=== PATIENT | female | born 1955 | race Caucasian/White ===

== ENCOUNTER 2018-08-28 00:49 | Outpatient (CLI) | payer BC, SELFPAY ==
--- NOTE | 2018-08-28 13:00 | DI.MAMMO_ITS ---
SYMPTOM/DIAGNOSIS: SCREENING, Z12.31 MAMMOGRAM: 08/28 Mammograms were interpreted according to the usual protocol including computer analysis with CAD system, tomosynthesis and C view imaging. The breasts are heterogeneously dense. No dominant mass or clumped microcalcifications identified in either breast. The current examination is compared with previous examinations including July 2017, and there has been no gross interval change in appearance in comparison with the previous studies. CONCLUSION: No specific evidence of malignancy at this time. Routine screening examinations are suggested at yearly intervals in this age group according to the ACS/ACR guidelines. Category 1, breast density category C. MQSA ASSESSMENT OF FINDINGS: Negative. Category 1. Patient will receive a letter notifying them of these results. Bi-RADS category C. The breasts are heterogeneously dense, which may obscure small masses.
== END 2018-08-28 01:09 ==
PROVIDERS: PCP Internal Medicine; Visit Provider Internal Medicine
DX: Z12.31 Encounter for screening mammogram for malignant neoplasm of breast (principal)
CPT/HCPCS: 77063; 77067

== ENCOUNTER 2019-07-10 18:28 | Outpatient (REF) | payer BC, SELFPAY | END 2019-07-10 18:48 | LOC: LBN 18:28 | PROVIDERS: PCP Internal Medicine; Visit Provider Internal Medicine | DX: R30.0 Dysuria (principal) | CPT/HCPCS: 87077; 87086; 87186 ==

== ENCOUNTER 2019-08-29 00:40 | Outpatient (CLI) | payer BC, SELFPAY ==
--- NOTE | 2019-08-29 11:20 | DI.MAMMO_ITS ---
EXAM: MG MAMMO SCREENING CLINICAL HISTORY: screening, Z12.39 TECHNIQUE: Mammograms were interpreted according to the usual protocol including computer analysis w [employer] CAD system, tomosynthesis and C-view imaging. COMPARISON: [id number] FINDINGS: The breasts are composed of heterogeneously dense tissue, which may obscure small masses, breast dens ity category C. There are no suspicious masses or suspicious microcalcifications. There has been no interval change when compared with the previous examinations. IMPRESSION: Category 1, negative mammogram. Yearly screening mammography is recommended. BI-RADS Cat 1 - Negative Breast Density - Category C - Heterogeneously dense
== END 2019-08-29 01:00 ==
PROVIDERS: PCP Internal Medicine; Visit Provider Internal Medicine
DX: Z12.31 Encounter for screening mammogram for malignant neoplasm of breast (principal)
CPT/HCPCS: 77063; 77067

== ENCOUNTER 2019-09-04 06:54 | Day surgery (SDC) | payer BC, SELFPAY ==
--- NOTE | 2019-09-04 06:30 | W.UPDATEHP ---
Date of service: 09/04/19 Time of Service: 08:35 Updated H&P Refer to Most Recent Clinic Note/H&P Dated: 08/16/19 H&P was reviewed,patient examined No change has occured in patient's condition since last H&P completed
--- NOTE | 2019-09-04 06:30 | W.COLOREPORT ---
Date of service: 09/04/19 Time of Service: 08:41 Colonoscopy Report Date of procedure: 09/04/19 Pre-op diagnosis general: Colon Cancer Screening Post-op diagnosis procedure note: other (Rectal polyp and mild diverticulosis) Procedure: Colonoscopy with polypectomy Surgeon: Carolina Keane Anesthesia proc note operative: other (General/ ASA 1/ Antolin Cota CRNA) Estimated blood loss (mL): 5 Pathology: other (Rectal polyp) Complications: None Disposition: same day Indications: The patient is here for Colonoscopy pre-op. Her last screening was in 2008 and was unremarkable. She has no family history of colon cancer. She has not had any bowel habit changes. -Discussed colonoscopy bowel prep as well as the procedure. Discussed possible complications of the procedure to include bleeding, pain, perforation, missed small lesion/polyp, sore throat, aspiration and adverse reaction to the medications. Questions were answered to patient?s satisfaction. No guarantees were implied or given. Prep: Miralax/Dulcolax Procedure Start Time: : Procedure End Time: 09:10 Retraction Time: 14 minutes Findings: <10 mm pedunculated polyp of rectum Mild sigmoid diverticulosis Procedure Description: After informed consent was obtained the patient was taken to the procedure room and placed in a left decubitous position. Monitors were applied and a time out was done. The patients name, date of , procedure, allergies to medications and metal in their body was reviewed. The patient was then sedated. Once sedated and comfortable a rectal exam was done. External exam was normal. Internal exam revealed a normal sphincter tone and no palpable masses. The scope was then introduced and retro-flexed. No internal hemorrhoids, masses or polyps were identified on retro-flexion. The scope was then advanced to the cecum without difficulty. The TI and appendiceal orifice were identified. The prep was adequate. The scope was then slowly retracted over 14 minutes back into the rectum. Polyps were removed with cold forceps in the rectum. There was mild diverticulosis noted of the sigmoid colon. The scope was removed and the patient was woken up and taken back to Same day surgery in stable condition. The patient tolerated the procedure well and there were no immediate complications. Follow up: The patient should follow up in 3-5 years unless they develop changes in bowel habits or other new gastrointestinal complaints.
--- NOTE | 2019-09-04 06:32 | W.PM.DSUDISC ---
Discharge Plan Disposition Patient Disposition: HOME Condition: Good Discharge Details Reason For Visit: Colon Cancer Screening Attending Provider: Carolina Keane Primary Care Provider: Rena Fisher Home Meds and New Rx's Prescriptions: Continued sertraline 25 mg tablet 12.5 mg PO .qod Qty: 30 RF: 1 ibuprofen 600 MG tablet 600 mg PO QID PRN (Reason: Pain) Qty: 30 RF: 0 sertraline 25 mg tablet 25 mg PO DAILY PRNRF: 0 multivitamin with minerals [Hair,Skin and Nails] Tablet 1 tab PO DAILY RF: 0 Discharge Instructions Instructions: Diverticulosis (DC), Colorectal Polyps (DC) Additional Instructions: Findings: One polyp Mild diverticulosis Follow up: 3-5 years Please call if you develop: fevers >101.5 Nausea or Vomiting Abdominal pain that is not transient DAY SURGERY UNIT POST ENDOSCOPY INSTRUCTIONS 1. Because there will be medication in your system for the next 24 hours, you may feel a little sleepy. Your coordination will be affected. Therefore: a. Do not drive or operate dangerous equipment for 24 hours. b. Do not drink alcohol beverages for 24 hours (not even beer). c. Plan to go home and rest for the day. 2. Generally there are no restrictions on your activity after a day or so has gone by, but you may feel a bit fatigued for a few days. 3 After you arrive home you may have a light meal and return to a normal diet as you can tolerate it without feeling sick to your stomach. 4. After surgery, you may feel pain or discomfort. This should be only transient, but if it persists please contact your doctor. 5. If there are any questions regarding the findings of your procedure, please feel free to contact your doctor. 6. If you are unable to contact your doctor with a problem, contact the hospital at [phone]. 7. Continue all your regular medications unless directed otherwise. I understand the above instructions and have no questions. Signature of Patient or Responsible Adult Escort Date/Time Name of Responsible Adult Escort Signature of Nurse Date/Time Activity:: Activity as Tolerated Diet:: High Fiber diet Discharge Orders Discharge Orders: Discharge Order (Routine); Ordered 09/04/19 Ordered By: Carolina Keane DS: Diagnosis Discharge Diagnosis (1) History of colonoscopy: Status: Chronic (2) Colorectal polyp detected on colonoscopy: Status: Acute (3) Diverticulosis: Status: Acute
[2019-09-04 07:11] VITALS: BP 115/77; PULSE 79; RESP 16; TEMP 36.4; O2SAT 98
[2019-09-04] MEDS: Lactated Ringers 1,000 ML 80 ML IV (07:45)
--- NOTE | 2019-09-04 08:35 | HPE_ITS ---
Date of service: 09/04/19 Time of Service: 08:35 Updated H&P Refer to Most Recent Clinic Note/H&P Dated: 08/16/19 H&P was reviewed,patient examined No change has occured in patient's condition since last H&P completed cc: Dictated by: SADAF LOYA MD Dictated: 09/04/19Time: 629 <Electronically signed by Carolina Loya M.D.> Date: 11/04/18913 Date: Date: Transcribed Date: 09/04/19 Transcribed Time: 629By: NATHAN
--- NOTE | 2019-09-04 08:45 | BOWEL_PTH ---
PATIENT: Jewels Jimenez LOC: [facility] U#:[id number] AGE/SX: 63/F ROOM: RE09/04/[address]: Carolina Keane MD : [id number] BED: DIS: 09/04/2019 SPEC #: [id number] RECD: 09/04/19 12:37 STATUS: LEODAN REQ #: [id number] MICKEY: 09/04/19 08:[address]: Carolina Keane DEPT: Surgical Specimen RECD BY: Rosalia Delacruz ENTERED: 09/04/19 12:38 SP TYPE: Bowel OTHR DR: Rena Fisher MD Tissues: 1 - BIOPSY BOWEL Procedures: GROSS AND MICRO LEVEL 4 Comments: [id number]
[2019-09-04 09:19] VITALS: BP 124/82; PULSE 66; RESP 16; TEMP 36.2; O2SAT 98
== END 2019-09-04 10:09 | disposition home or self-care (01) ==
LOC: SUR 06:56
PROVIDERS: PCP Internal Medicine; Visit Provider Surgery
PROC: 0DJD8ZZ Inspection of Lower Intestinal Tract, Via Natural or Artificial Opening Endoscopic (ICD-10-PCS; CPT 45378; principal; 2019-09-04 08:30)
DX: Z12.11 Encounter for screening for malignant neoplasm of colon (principal); K57.30 Diverticulosis of large intestine without perforation or abscess without bleeding; D12.8 Benign neoplasm of rectum
CPT/HCPCS: 45380; 88305; J2250; J3010

== ENCOUNTER 2019-12-21 11:09 | Emergency (ER) | payer BC, SELFPAY ==
[2019-12-21 11:20] VITALS: BP 134/88; PULSE 68; RESP 16; TEMP 36.8; O2SAT 97
[2019-12-21 11:26] VITALS: RESP 15
--- NOTE | 2019-12-21 11:30 | DI.RAD_ITS ---
EXAM: XR WRIST RT COMPLETE CLINICAL HISTORY: Swelling, pain. TECHNIQUE: 2D digital imaging was performed. COMPARISON: No exams were available for comparison FINDINGS: BONES: No acute fracture is present. No bony destructive lesion is seen. JOINTS: The carpal bones are normally aligned. SOFT TISSUE: Normal. IMPRESSION: No acute abnormality of the right wrist. DATA REPOSITORY: RADIATION DOSE DELIVERED:
--- NOTE | 2019-12-21 11:45 | ED.GENADUL_ITS ---
Discharge Plan Disposition Patient Disposition: HOME Condition: Stable Discharge Details Chief Complaint: GenMedical Clinical Impression: Right wrist pain, Cellulitis of right wrist Primary Care Provider: Rena Fisher ED Provider: Asha Ellis Home Meds and New Rx's Prescriptions: New clindamycin HCl 300 mg capsule 300 mg PO BID 7 Days Qty: 14 RF: 0 No Action ibuprofen 600 MG tablet 600 mg PO QID PRN (Reason: Pain) Qty: 30 RF: 0 multivitamin with minerals [Hair,Skin and Nails] Tablet 1 tab PO DAILY RF: 0 Discharge Instructions Instructions: Cellulitis (ED) Additional Instructions: Follow up with primary care provider in 3-5 days. Return to ED sooner if any worsening or concerns. Increase oral fluids. Please take Tylenol or Ibuprofen with food every 4-6 hours as needed for pain and swelling. Wear splint for comfort. Take medications as directed. Please return for any worsening swelling, redness or red streaks. At this time we are unable to fully rule out septic joint as discussed. Referrals: Rena Fisher MD [Primary Care Provider] - Medical Decision Making Initial work-up includes x-ray, CBC, CMP and a uric acid to rule out gout versus cellulitis versus bony abnormality. Other considerations are septic joint. EXAM: XR WRIST RT COMPLETE CLINICAL HISTORY: Swelling, pain. TECHNIQUE: 2D digital imaging was performed. COMPARISON: No exams were available for comparison FINDINGS: BONES: No acute fracture is present. No bony destructive lesion is seen. JOINTS: The carpal bones are normally aligned. SOFT TISSUE: Normal. IMPRESSION: No acute abnormality of the right wrist. Discussed the only way to rule out septic joint is to do a joint aspiration patient declines at this time. Strict return instructions given, instructed to return for any increased swelling and redness or worsening. Verbalized understanding. I will cover for possible cellulitis at this time given clindamycin 300 mg twice a day x7 days. [facility] wrist splint given to patient and instructed on use. HPI General Mode of arrival: ambulatory . Date/Time Provider Initiated Documentation: 12/21/19 11:12 . Limitations to Documentation: no limitations . Information obtained by: patient . HPI Narrative: 64-year-old female presents with right wrist erythema and swelling which began 2 to 3 days ago. She denies any known injury. She does have decreased risk of flexion without tenderness. Radial pulses intact. Cap refill less than 3 seconds. Denies any fever or chills. Related Data Home Medications Medication Instructions Recorded Confirmed ibuprofen 600 mg PO QID PRN #30 tab 02/09/15 12/21/19 multivitamin with minerals 1 tab PO DAILY 08/30/19 12/21/19 [Hair,Skin and Nails] clindamycin HCl 300 mg PO BID 7 Days #14 cap 12/21/19 Previous Rx's Medication Instructions Recorded ibuprofen 600 mg PO QID PRN #30 tab 02/09/15 clindamycin HCl 300 mg PO BID 7 Days #14 cap 12/21/19 Allergies Allergy/AdvReac Type Severity Reaction Status Date / Time cefdinir Allergy Severe swelling Verified 12/21/19 11:25 cephalexin Allergy Severe facial Verified 12/21/19 11:25 swelling codeine Allergy Severe body and Verified 12/21/19 10:09 throat swells Penicillins Allergy Severe throat Verified 12/21/19 11:25 closes up strawberry Allergy Severe Swelling/Ed Verified 12/21/19 11:25 aiyana Sulfa (Sulfonamide Allergy Severe body swells Verified 12/21/19 11:25 Antibiotics) General Stated Complaint: GenMedical JOSAFAT: 3 Review of Systems Narrative: Constitutional: Negative for weight loss, alert and oriented, well groomed, normal body habitus, appears comfortable. HEENT: Denies trauma, headaches, blurry vision, nasal discharge, sore throat, trouble swallowing. Chest: Denies chest pain, palpitations, irregular rhythm, hypertension. Respiratory: Denies Shortness of breath, cough, hemoptysis. Extremities: Right wrist pain and redness GI: Denies abdominal pain, nausea, vomiting, diarrhea, constipation. : Denies dysuria, hematuria, flank pain, rectal bleeding. Neuro: Denies dizziness, blurry vision, weakness, syncope, headache or facial numbness. Hematologic: Denies easy bruising, intolerance to heat or cold, hair loss. [facility] Medical History Arthralgia of pelvic region and thigh (Inactive 10/26/13) prob contusion Biliary dyskinesia KINA II (cervical intraepithelial neoplasia II) Diverticulosis (Acute) Generalized anxiety disorder (Inactive 03/10/16) Migraine Surgical History History of colonoscopy (Chronic ~09/04/19) 08/28 - Tubular adenoma. 2008- normal Hx of tubal ligation (Chronic) S/P laparoscopic cholecystectomy (Acute) S/P LEEP (Acute) Family History Father Heart disease Brother Heart disease Social History Smoking/Tobacco Use Status: Never Alcohol Intake: never Drug use: Never Substance use type: does not use Household members: spouse Housing: house Number of Children: 2 number of grandchildren: 4 current occupation: [employer] at [email or web address] What is your relationship status?: Panel score (0-1 are the most socially isolated patients): 1 What type of physical activity do you participate in: regular exercise Seatbelt use: always Drive intox or ride w/intox horse and wagon driver: No Working smoke detector in home: Yes Fire extinguisher in home: Yes Carbon monox detector in home: Yes Do you feel safe at home: Yes Do you feel safe in your relationship?: Yes Exam Narrative Exam Narrative: Constitutional: Allert and oriented x3. Appears stated age. Normal body habitus. Head: Normocephalic, no trauma. Eyes: Pupils PERRLA, Red reflex noted, EOM's intact. Eyelids symmetrical withour lesions, discharge, or swelling. ENT: Bilateral TM's WNL, External ear normal to inspection, no mastoid TTP, swelling, or erythema, Nasal turbinates WNL, no nasal discharge. Normal dentition, Posterior pharynx WNL, no exudate. Chest: RRR, Normal S1, S2, distal pulses intact. Resp: Lungs clear to auscultation bilaterally, no wheezes, rales, or rhonchi. Musculoskeletal: Normal gait, 5/5 strength to all four extremities. Right wrist erythema noted to the dorsal aspect with swelling. Decreased range of motion with flexion. No obvious deformity. Skin: No suspicious rashes or lesions. Capillary refill ?2 sec. Neurologic: Cranial nerves II-XII intact. Alert and oriented x 3. DTR's intact. Hematologic/Lymphatic: No ecchymosis, no lymphadenopathy. Course Vital Signs Vital signs: Vital Signs Temperature 36.8 C 12/21/19 11:20 Pulse 68 03/13/20 11:20 Respiratory Rate 16 12/21/19 11:20 Blood Pressure 134/88 12/21/19 11:20 Pulse Oximetry 97 12/21/19 11:20 Temperature 36.8 C 12/21/19 11:20 Temperature Source Tympanic 12/21/19 11:20 Pulse 68 12/21/19 11:20 Respiratory Rate 15 12/21/19 11:26 Respiratory Effort Non-Labored 12/21/19 11:26 Respiratory Depth Normal 12/21/19 11:26 Blood Pressure 134/88 12/21/19 11:20 Blood Pressure Position Sitting 12/21/19 11:20 Pulse Oximetry 97 12/21/19 11:20 Oxygen Delivery Method Room Air 12/21/19 11:20 Oxygen Flow Rate 0 12/21/19 11:20 Pain Level 10 12/21/19 11:20 Comment 12/21/19 11:20
[2019-12-21 12:05] LABS: Abs Immature Grans 0.01 k/cumm (0.0-0.09); Absolute Basophil Count 0.03 k/cumm (0.0-0.2); Absolute Eosinophil Count 0.14 k/cumm (0.0-0.7); Absolute Lymphocyte Count 1.35 k/cumm (1.2-3.4); Absolute Neutrophil Count 3.61 k/cumm (1.2-6.7); Basophils % 0.5; Eosinophils % 2.4; HCT 38.6 % (36.0-46.0); HGB 13.1 g/dL (12.0-15.5); Immature Grans % 0.2 %; Lymphocytes % 23.5; Mean Corp. HGB Concentration 33.9 g/dL (32.0-36.0); Mean Corpuscular Hemoglobin 30.7 pg (27.0-33.0); Mean Corpuscular Volume 90.4 fL (80-95); Mean Platelet Volume 11.3 fL (8.0-11.0); Monocytes % 10.5; Neutrophils % 62.9; Platelet Count 200 x1000/uL (130-400); RBC 4.27 m/cumm (4.00-5.20); RBC Distribution Width 12.4 % (11.7-14.6); White Blood Cell Count 5.74 k/cumm (4.4-10.8)
[2019-12-21 12:17] VITALS: BP 130/58; PULSE 59; RESP 18; TEMP 36.6; O2SAT 98
[2019-12-21 12:18] LABS: ALT 77 U/L (14-59); AST 55 U/L (15-37); Alkaline Phosphatase 110 U/L (46-116); Anion Gap 7.4 mmol/L (3-11); BUN 13 mg/dL (7-18); Bilirubin, Total 0.5 mg/dL (0.2-1.0); CO2 28.6 mmol/L (21.0-32.0); CREATININE 0.67 mg/dL (0.55-1.02); Chloride 105 mmol/L (98-107); Glucose 88 mg/dL (74-106); Potassium 3.5 mmol/L (3.5-5.1); Sodium 141 mmol/L (136-145); Total Protein 7.4 g/dL (6.4-8.2); Uric Acid 1.8 mg/dL (2.6-6.0)
[2019-12-21 13:07] VITALS: BP 124/74; PULSE 63; RESP 14; TEMP 36.6; O2SAT 98
== END 2019-12-21 13:07 | disposition home or self-care (01) ==
PROVIDERS: Emergency Provider Registered Nurse Emergency; PCP Internal Medicine
DX: L03.113 Cellulitis of right upper limb (principal)
CPT/HCPCS: 29125; 36415; 80053; 99284; 73110; 84550; 85025; L3807

== ENCOUNTER → 2020-07-22 00:04 | Outpatient (CLI) | payer BC, SELFPAY ==
--- NOTE | 2020-07-22 09:00 | ETT_ITS ---
APPROVED REPORT Exam: Exercise Treadmill Patient Location: Out-Patient Room/Bed: Stress Nurse: Avis Prince RN BMI: 24.02 Baseline Rhythm: Sinus Rhythm, inverted T waves in leads aVL, V1, V2 Indications: Atypical chest pain. 1 episode of 4/10 chest pressure/heaviness radiating to left neck a nd lasting about 2 hours. Medical History Cardiac Medications: No medications. Allergies: Penicillins, sulfa medications. Cardiac Risk Factors: FHX of CAD Pretest Chest Pain Characteristics: No chest pain Exercise History: Physically active Lung Sounds: Clear to auscultation Heart Sounds: Regular Stress Test Details Test: Exercise stress testing was performed using a Soto protocol. Rest Stress HR Resting HR Supine: 63 bpm Max Heart Rate (APMHR): 157 bpm Resting HR Standin bpm Target HR (85% APMHR): 133 bpm Max HR Achieved: 179 bpm % of APMHR: 114 Recovery HR: 93 bpm HR response to stress: Normal HR response to stress BP Resting BP Supine: 118/72 mmHg Resting BP Standin/70 mmHg Max BP: 162/60 mmHg Recovery BP: 130/68 mmHg BP response to stress: Normal blood pressure response to stress. ECG Resting ECG: Sinus Rhythm, inverted T waves in leads aVL, V1, V2 Stress ECG: Sinus Tachycardia ST Change: Normal Arrhythmia: rare PVC Recovery ECG: Sinus Rhythm, inverted T waves in leads aVL, V1, V2 Recovery ST Change: Normal Recovery Arrhythmia: None Clinical Reason for Termination: Fatigue Stress Symptoms: None Exercise duration: 12 min07 sec Highest Stage Reached: Stage 5: 5.0 mph at 18% grade. Exercise capacity: 13.55 METs Stress ECG Conclusion 1. The patient exercised for 12 minutes (14 METS). Exercise was terminated due to fatigue. 2. The patient no symptoms suggestive of ischemia. 3. There was no evidence of ischemia on the EKG portion of the exam. 4. The Morales Score ( 12) estimates an annual cardiovascular mortality of 0% and a five year survival o f 96%. Using the Morales Score there is a low probability of any angiographic coronary disease. Stress Test Summary STAGE Time (mins) Speed (mph) Grade (%) HR BP SYMPTOMS METS Supine 63 118/72 Standing 88 114/70 1 3 1.7 10 121 124/68 4.6 2 6 2.5 12 136 128/66 7 3 9 3.4 14 160 140/62 10.2 4 12 4.2 16 176 12.9 1 min recovery 154 162/60 3 min recovery 110 152/64 6 min recovery 97 130/68
== END ==
PROVIDERS: PCP Internal Medicine; Visit Provider Internal Medicine
DX: R07.89 Other chest pain (principal); Z82.49 Family history of ischemic heart disease and other diseases of the circulatory system
CPT/HCPCS: 93017

== ENCOUNTER → 2020-07-29 01:28 | Outpatient (CLI) | payer BC, SELFPAY ==
[2020-07-29 15:53] LABS: ALT 64 U/L (14-59); AST 29 U/L (15-37); Albumin 4.1 g/dL (3.4-5.0); Alkaline Phosphatase 101 U/L (46-116); Anion Gap 8.1 mmol/L (3-11); BUN 19 mg/dL (7-18); Bilirubin, Total 0.6 mg/dL (0.2-1.0); CO2 29.9 mmol/L (21.0-32.0); CREATININE 0.69 mg/dL (0.55-1.02); Calcium 9.3 mg/dL (8.5-10.1); Calculated LDL 106 mg/dL (<100); Chloride 105 mmol/L (98-107); Cholesterol 211 mg/dL (<200); Glucose 82 mg/dL (74-106); HDL Cholesterol 94 mg/dL (40-60); Potassium 3.9 mmol/L (3.5-5.1); Sodium 143 mmol/L (136-145); Total Protein 7.2 g/dL (6.4-8.2); Triglyceride 55 mg/dL (<150)
== END ==
PROVIDERS: PCP Internal Medicine; Visit Provider Internal Medicine
DX: E78.00 Pure hypercholesterolemia, unspecified (principal); R07.89 Other chest pain
CPT/HCPCS: 36415; 80053; 80061

== ENCOUNTER 2021-04-03 11:01 | Outpatient (REF) | payer BC, SELFPAY | END 2021-04-03 11:02 | disposition home or self-care (01) | LOC: LBN 11:01 | PROVIDERS: PCP Internal Medicine; Referring Provider Student in an Organized Health Care Education/Training Program; Visit Provider Student in an Organized Health Care Education/Training Program | DX: R10.9 Unspecified abdominal pain (principal); N39.0 Urinary tract infection, site not specified | CPT/HCPCS: 87086 ==

== ENCOUNTER 2021-04-03 11:07 | Emergency (ER) | payer BC, SELFPAY ==
[2021-04-03] VITALS (9 sets, daily range): BP systolic 111–123; BP diastolic 62–82; PULSE 55–85; RESP 20; TEMP 36.8; O2SAT 96–99
--- NOTE | 2021-04-03 11:11 | W.ED.GENAD ---
Discharge Plan Disposition Patient Disposition: HOME Condition: Stable Discharge Details Clinical Impression: Diverticulitis Primary Care Provider: Rena Fisher ED Provider: Victorino Lala Home Meds and New Rx's Prescriptions: New ondansetron HCl [Zofran] 4 mg tablet 4 mg PO Q8H PRNQty: 10 RF: 0 ciprofloxacin HCl [Cipro] 500 mg tablet 500 mg PO Q12H Qty: 20 RF: 0 metronidazole [Flagyl] 500 mg tablet 500 mg PO QID 10 Days Qty: 40 RF: 0 Continued ibuprofen 600 MG tablet 600 mg PO QID PRN (Reason: Pain) Qty: 30 RF: 0 Discharge Instructions Instructions: Diverticulitis (ED) Additional Instructions: CT imaging reveals that you have diverticulitis. Take Cipro, Flagyl, Zofran as directed. Clear liquid diet, advance as tolerated. Please watch for new or worsening symptoms and return to the ER for any concerns. I would like you to contact your primary care provider on Tuesday to discuss your ER visit and need for reevaluation as an outpatient. Discharge Data Discharge Date/Time-TO BE ENTERED AT DEPARTURE: 04/03/21 14:42 Medical Decision Making This is a 65-year-old female, past medical history of diverticulosis, anxiety, migraines, cholecystectomy, presenting for evaluation of crampy abdominal pain and urinary frequency. Patient had a negative urine at her primary care office, sent to the ER for further evaluation. Clinically she appears well, nontoxic, abdomen is soft, tender without guarding rebound or rigidity. Differential includes but not excluded to appendicitis, pyelonephritis, UTI, renal stone, diverticulitis, bowel obstruction, mesenteric adenitis, etc. Will obtain IV access, laboratory values, urinalysis, give IV fluids and antiemetic, patient declines any medication for her discomfort. She reports her pain is currently 8 out of 10 but tolerable. Laboratory values reveal a white blood cell count of 16.29, sodium 139 potassium 3.4 anion gap 14 creatinine 0.8 with a GFR of greater than 60. Total bili 1.7 AST 73 ALT 113 alk phosphatase 222 lipase 44, urinalysis greater than 160 ketones, small bilirubin, trace leukoesterase, 3-5 red cells, 5-10 white cells with few epithelial cells. Negative for bacteria, culture indicated. Urinalysis does have contamination but certainly could be a very early urinary tract infection. Given her discomfort and leukocytosis, will obtain CT imaging. CT imaging revealed uncomplicated sigmoid diverticulitis. Discussed findings and disposition with patient. Patient is afebrile, no vomiting, reports nausea is improved with Zofran. She appears well, nontoxic. Patient was like to trial outpatient therapy, given her clinical presentation I believe this to be perfectly reasonable. Patient will be given oral hydration here in the ER as well as her first dose of Cipro and Flagyl, I will provide a prescription for the next 10 days as well. Cipro should also cover for potential early UTI, again culture is pending. She was encouraged to return to the ER for new or worsening symptoms, otherwise contact her primary care provider on Tuesday. Patient agreeable to this plan and has no additional questions or concerns. Medical Records Medical records reviewed: Yes I reviewed the patient's medical records. Imaging Data Radiologic Study: Attestation: I personally reviewed and interpreted this imaging study as follows: Imaging: CT Scan Radiologist's impression: Exam(s) CT ABDOMEN PELVIS W EXAM: CT ABDOMEN PELVIS W CLINICAL HISTORY: [id number], lower abd pain. TECHNIQUE: Imaging Protocol: Axial computed tomography images with coronal and sagittal reformatted images were created and reviewed CONTRAST MATERIAL: Intravenous: Omnipaque 350 Contrast volume:100 cc Oral: no COMPARISON: No exams were available for comparison FINDINGS: ABDOMEN: Lung Bases: Normal where visualized. Liver: Normal density. No measurable mass. Gallbladder and biliary tract: Cholecystectomy Pancreas: Normal density, no abnormal calcifications or inflammatory process. Spleen: Normal. Kidneys: Normal size, contour and axis. No radiodense stones or obstructive uropathy. No masses seen. Adrenal glands: No masses seen. Abdominal Aorta: Abdominal portion non-dilated. Minimal atherosclerotic changes. PELVIS: Bladder: Symmetric distention, no gross wall thickening. Bowel: Normal appendix. Numerous diverticula are seen in the sigmoid region. Wall thickening and surrounding stranding, consistent with diverticulitis. No abscess or perforation is seen. No obstruction. Peritoneal cavity: No ascites, collection. Bones: Mild degenerative changes. Reproductive organs: Within normal limits. Lymph nodes: Unremarkable. Impression: Sigmoid diverticulitis. Lab Data Lab results reviewed: Yes I reviewed the patient's lab results. Labs: 04/03/21 11:20 Urine - Reflex from Ua Urine Culture - Pending Laboratory Tests Range/Units 04/03/21 04/03/21 04/03/21 11:20 11:30 11:30 WBC (4.4-10.8) 10^3/uL 16.29 H RBC (3.93-5.22) 10^6/uL 4.65 Hgb (11.2-15.7) g/dL 14.0 Hct (36.0-46.0) % 41.5 MCV (80-95) fL 89.2 MCH (27.0-33.0) pg 30.1 MCHC (32.0-36.0) % 33.7 RDW (11.7-14.6) % 12.0 Plt Count (130-400) 10^3/uL 206 MPV (8.0-11.0) fL 11.4 H Immature Gran % 0.4 Neutrophils % 85.0 Lymphocytes % 6.3 Monocytes % 8.0 Eosinophils % 0.0 Basophils % 0.3 Nucleated RBC % % 0 Absolute Neutrophils (1.2-6.7) 10^3/uL 13.85 H Absolute Lymphocytes (1.2-3.4) 10^3/uL 1.03 L Absolute Monocytes (0.1-0.8) 10^3/uL 1.30 H Absolute Eosinophils (0.0-0.7) 10^3/uL 0.00 Absolute Basophils (0.0-0.2) 10^3/uL 0.05 Sodium (136-145) mmol/L 139 Potassium (3.5-5.1) mmol/L 3.4 L Chloride (98-107) mmol/L 100 Carbon Dioxide (21.0-32.0) mmol/L 25.0 Anion Gap (3-11) mmol/L 14.0 H BUN (7-18) mg/dL 13 Creatinine (0.55-1.02) mg/dL 0.8 Estimated GFR/1.73 m2 (mL/min/1.73m2) >= 60.00 Glucose (74-106) mg/dL 104 Calcium (8.5-10.1) mg/dL 9.5 Total Bilirubin (0.2-1.0) mg/dL 1.7 H AST (15-37) U/L 73 H ALT (14-59) U/L 113 H Alkaline Phosphatase (46-116) U/L 222 H Total Protein (6.4-8.2) g/dL 8.4 H Albumin (3.4-5.0) g/dL 3.9 Lipase (73-393) U/L 44 Urine Color (Yellow) Yellow Urine Clarity (Clear) Clear Urine pH (5-8) 6.0 Ur Specific [place] (1.005-1.025) 1.025 Urine Protein (Negative) mg/dL Negative Urine Ketones (Negative) mg/dL >=160 H Urine Blood (Negative) Negative Urine Nitrite (Negative) Negative Urine Bilirubin (Negative) Small H Urine Urobilinogen (Up TO 0.2) EU/dL 1.0 H Ur Leukocyte Esterase (Negative) Trace H Urine RBC (0-2) HPF 3-5 H Urine WBC (0-5) HPF 5-10 Ur Epithelial Cells (Negative) HPF Few Urine Crystals (Negative) HPF Negative Urine Bacteria (Negative) HPF Negative Urine Casts (Negative) LPF Negative Urine Mucus (Negative) Negative Ur Culture Indicated? Yes Urine Glucose (Negative) mg/dL Negative HPI General Mode of arrival: ambulatory. Date/Time Provider Initiated Documentation: 04/03/21 11:07. Limitations to Documentation: no limitations. Information obtained by: patient. HPI Narrative: This is a 65-year-old female, past medical history of diverticulosis, anxiety, migraines, presenting to the ER reporting 5-day history of diffuse lower abdominal pain. She reports urinary frequency, nausea, thought she may have a UTI, seen at her primary care office today, urine negative, sent to the ER for further evaluation. She denies fever, chest pain, shortness of breath, back pain, dysuria, hematuria, diarrhea or constipation. Reports the pain is progressively worsening, now 8 out of 10, crampy. Reports normal bowel movement over the past 24 hours. States that she has a history of diverticulosis by colonoscopy but never diagnosed with diverticulitis. Related Data Home Medications Medication Instructions Recorded Confirmed ibuprofen 600 mg PO QID PRN #30 tab 02/09/15 04/03/21 ciprofloxacin HCl [Cipro] 500 mg PO Q12H #20 tab 04/03/21 metronidazole [Flagyl] 500 mg PO QID 10 Days #40 tab 04/03/21 ondansetron HCl [Zofran] 4 mg PO Q8H PRN #10 tab 04/03/21 Previous Rx's Medication Instructions Recorded ibuprofen 600 mg PO QID PRN #30 tab 02/09/15 ciprofloxacin HCl [Cipro] 500 mg PO Q12H #20 tab 04/03/21 metronidazole [Flagyl] 500 mg PO QID 10 Days #40 tab 04/03/21 ondansetron HCl [Zofran] 4 mg PO Q8H PRN #10 tab 04/03/21 Allergies Allergy/AdvReac Type Severity Reaction Status Date / Time cefdinir Allergy Severe swelling Verified 04/03/21 10:24 cephalexin Allergy Severe facial Verified 04/03/21 10:24 swelling codeine Allergy Severe body and Verified 04/03/21 10:24 throat swells Penicillins Allergy Severe throat Verified 04/03/21 10:24 closes up strawberry Allergy Severe Swelling/Ed Verified 04/03/21 10:24 aiyana Sulfa (Sulfonamide Allergy Severe body swells Verified 04/03/21 10:24 Antibiotics) General JOSAFAT: 3 Review of Systems Constitutional Constitutional: Denies fatigue, Denies fever(s) and Denies headache(s) ENT Ears, Nose, Mouth, and Throat: Denies headache(s) and Denies neck pain Cardiovascular Cardiovascular: Denies chest pain and Denies dyspnea Respiratory Respiratory: Denies dyspnea Gastrointestinal Gastrointestinal: Reports abdominal pain, Denies constipation, Denies diarrhea, Reports nausea and Denies vomiting Genitourinary Genitourinary: Denies dysuria and Reports urinary urgency Musculoskeletal Musculoskeletal: Denies back pain and Denies neck pain Integumentary/Breasts Skin/Breast: Denies rash Neurologic Neurologic: Denies headache(s) Endocrine Endocrine: Denies fatigue Hematologic/Lymphatic Hematologic/Lymphatic: Denies easy bleeding and Denies easy bruising [facility] Medical History Abdominal pain Mod-Severe .. x3 days, LLQ -->RLQ w/ suprapubic tenderness. Diverticulits? Colitis? Arthralgia of pelvic region and thigh (10/26/13) prob contusion Biliary dyskinesia KINA II (cervical intraepithelial neoplasia II) Diverticulosis Generalized anxiety disorder (03/10/16) Migraine Surgical History History of colonoscopy (~09/04/19) 08/28 - Tubular adenoma. 2008- normal Hx of tubal ligation S/P laparoscopic cholecystectomy S/P LEEP Family History Father Heart disease Brother Heart disease Social History Smoking/Tobacco Use Status: Never Smoking risk assessment performed?: Yes Alcohol Intake: never Drug use: Never Substance use type: does not use Household members: spouse Housing: house Number of Children: 2 number of grandchildren: 4 current occupation: [employer] at [employer] What is your relationship status?: Panel score (0-1 are the most socially isolated patients): 1 What type of physical activity do you participate in: regular exercise Seatbelt use: always Drive intox or ride w/intox 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: No Working smoke detector in home: Yes Fire extinguisher in home: Yes Carbon monox detector in home: Yes Do you feel safe at home: Yes Do you feel safe in your relationship?: Yes Exam Const General: cooperative, healthy appearing, comfortable and no acute distress Orientation: alert and awake HENNY Head: normal to inspection, normocephalic and atraumatic Mouth: moist mucous membranes Eyes General: appearance normal, both eyes and all related structures Conjunctivae: conjunctivae normal Neck Neck: normal visual inspection, trachea midline and supple Resp Effort & Inspection: normal respiratory effort and able to speak in complete sentences Auscultation: clear to auscultation bilaterally Cardio Rate: regular rate Rhythm: regular rhythm GI Inspection: normal to inspection Palpation: soft, not firm, no guarding, no pulsatile masses and tender (Diffuse, worse in the lower quadrants) not at McBurney's point and with no rebound tenderness Auscultation: normal bowel sounds Back/Spine/Pelvis Back: No back tenderness Skin General skin exam: no rashes or lesions noted Neuro General: patient alert, patient awake, moves all extremities and no focal motor deficits Cognition: normal cognition Speech: speech normal Gait: normal gait Sensory Exam: no sensory deficits noted Extrem General: normal to inspection, full ROM and capillary refill normal Psych Appearance: grossly normal Mental Status: mental status grossly normal
[2021-04-03 11:32] LABS: Bilirubin Small (Negative); Blood Negative (Negative); Clarity Clear (Clear); Glucose Negative (Negative); Ketones >=160 mg/dL (Negative); Leukocyte Esterase Trace (Negative); Nitrite Negative (Negative); Specific Gravity 1.025 (1.005-1.025)
[2021-04-03 11:38] LABS: Bacteria Negative HPF (Negative); C & S Indicated? Yes; Casts Negative LPF (Negative); Crystals Negative HPF (Negative); Epithelial Cells Few HPF (Negative); Mucus Negative (Negative)
[2021-04-03 11:49] LABS: Abs Immature Grans 0.06 10^3/uL (0.0-0.06); Absolute Basophil Count 0.05 10^3/uL (0.0-0.2); Absolute Neutrophil Count 13.85 10^3/uL (1.2-6.7); Basophils % 0.3; HCT 41.5 % (36.0-46.0); Immature Grans % 0.4; Lymphocytes % 6.3; MCH 30.1 pg (27.0-33.0); MCHC 33.7 % (32.0-36.0); MCV 89.2 fL (80-95); MPV 11.4 fL (8.0-11.0); Nucleated RBC 0 %; Platelet Count 206 10^3/uL (130-400); RBC 4.65 10^6/uL (3.93-5.22); RDW-SD 39.5 fL; WBC 16.29 10^3/uL (4.4-10.8)
[2021-04-03 11:50] LABS: ALT 113 U/L (14-59); AST 73 U/L (15-37); Absolute Lymphocyte Count 1.03 10^3/uL (1.2-3.4); Albumin 3.9 g/dL (3.4-5.0); Alkaline Phosphatase 222 U/L (46-116); BUN 13 mg/dL (7-18); Bilirubin, Total 1.7 mg/dL (0.2-1.0); CREATININE 0.8 mg/dL (0.55-1.02); Calcium 9.5 mg/dL (8.5-10.1); Chloride 100 mmol/L (98-107); Glucose 104 mg/dL (74-106); Lipase 44 U/L (73-393); Potassium 3.4 mmol/L (3.5-5.1); Sodium 139 mmol/L (136-145); Total Protein 8.4 g/dL (6.4-8.2)
[2021-04-03] MEDS: Normal Saline 1,000 ML 1000 ML IV (12:00)
--- NOTE | 2021-04-03 12:00 | DI.CT_ITS ---
Exam(s) CT ABDOMEN PELVIS W EXAM: CT ABDOMEN PELVIS W CLINICAL HISTORY: [id number], lower abd pain. TECHNIQUE: Imaging Protocol: Axial computed tomography images with coronal and sagittal reformatted images were created and reviewed CONTRAST MATERIAL: Intravenous: Omnipaque 350 Contrast volume:100 cc Oral: no COMPARISON: No exams were available for comparison FINDINGS: ABDOMEN: Lung Bases: Normal where visualized. Liver: Normal density. No measurable mass. Gallbladder and biliary tract: Cholecystectomy Pancreas: Normal density, no abnormal calcifications or inflammatory process. Spleen: Normal. Kidneys: Normal size, contour and axis. No radiodense stones or obstructive uropathy. No masses seen. Adrenal glands: No masses seen. Abdominal Aorta: Abdominal portion non-dilated. Minimal atherosclerotic changes. PELVIS: Bladder: Symmetric distention, no gross wall thickening. Bowel: Normal appendix. Numerous diverticula are seen in the sigmoid region. Wall thickening and leigh rrounding stranding, consistent with diverticulitis. No abscess or perforation is seen. No obstruct ion. Peritoneal cavity: No ascites, collection. Bones: Mild degenerative changes. Reproductive organs: Within normal limits. Lymph nodes: Unremarkable. Impression: Sigmoid diverticulitis. RADIATION DOSE DELIVERED: 935.56mGy.cm Total DLP DATA REPOSITORY: All CT scans at this facility are submitted to the National Radiology Data Registry (NRDR) Dose Index Registry (DIR) with the [employer] (ACR). RADIATION OPTIMIZATION: All CT scans at this facility use at least one of these dose optimization te chniques: automated exposure control; mA and/or kV adjustment per patient size (includes targeted exa ms where dose is matched to clinical indication); or iterative reconstruction.
[2021-04-03] MEDS: Ondansetron 4 MG/2 ML VIAL IVP (12:54)
[2021-04-03] MEDS: Omnipaque 350 MG/ML 100 ML BTL IV (13:46)
[2021-04-03] MEDS: Normal Saline - Diluent 50 ML VIAL IV (13:46)
[2021-04-03] MEDS: Ciprofloxacin 500 MG TAB PO (14:12)
[2021-04-03] MEDS: metroNIDAZOLE 500 MG TAB PO (14:12)
== END 2021-04-03 14:42 | disposition home or self-care (01) ==
PROVIDERS: Emergency Provider Physician Assistant; PCP Internal Medicine
DX: K57.32 Diverticulitis of large intestine without perforation or abscess without bleeding (principal)
CPT/HCPCS: 36415; 80053; 83690; 96361; 96374; 99285; 74177; 81003; 81015; 85025; 87086; J2405; J3490

== ENCOUNTER 2021-04-08 20:09 | Emergency (ER) | payer BC, SELFPAY ==
[2021-04-08] VITALS (9 sets, daily range): BP systolic 128–139; BP diastolic 66–88; PULSE 67–82; RESP 15; TEMP 36.7; O2SAT 98–99
[2021-04-08 21:11] LABS: Lactate 0.7 mmol/L (0.6-1.4)
[2021-04-08 21:14] LABS: Abs Immature Grans 0.05 10^3/uL (0.0-0.06); Absolute Basophil Count 0.02 10^3/uL (0.0-0.2); Absolute Eosinophil Count 0.16 10^3/uL (0.0-0.7); Absolute Lymphocyte Count 1.04 10^3/uL (1.2-3.4); Absolute Monocyte Count 0.93 10^3/uL (0.1-0.8); Absolute Neutrophil Count 5.66 10^3/uL (1.2-6.7); Basophils % 0.3; HCT 36.6 % (36.0-46.0); HGB 12.2 g/dL (11.2-15.7); Immature Grans % 0.6; Lymphocytes % 13.2; MCH 29.7 pg (27.0-33.0); MCHC 33.3 % (32.0-36.0); MCV 89.1 fL (80-95); MPV 10.7 fL (8.0-11.0); Monocytes % 11.8; Neutrophils % 72.1; Nucleated RBC 0 %; Platelet Count 223 10^3/uL (130-400); RBC 4.11 10^6/uL (3.93-5.22); RDW 11.9 % (11.7-14.6); RDW-SD 38.5 fL; WBC 7.86 10^3/uL (4.4-10.8)
[2021-04-08] MEDS: Ondansetron 4 MG/2 ML VIAL ×2 (21:16→23:14)
[2021-04-08] MEDS: Normal Saline 1,000 ML 1000 ML IV (21:17)
[2021-04-08 21:34] LABS: ALT 53 U/L (14-59); AST 40 U/L (15-37); Albumin 3.2 g/dL (3.4-5.0); Alkaline Phosphatase 186 U/L (46-116); Anion Gap 8.6 mmol/L (3-11); BUN 19 mg/dL (7-18); Bilirubin, Total 0.4 mg/dL (0.2-1.0); CO2 26.4 mmol/L (21.0-32.0); CREATININE 1.3 mg/dL (0.55-1.02); Chloride 106 mmol/L (98-107); Estimated GFR 41.24 (mL/min/1.73m2); Glucose 109 mg/dL (74-106); Lipase 65 U/L (73-393); Potassium 3.4 mmol/L (3.5-5.1); Sodium 141 mmol/L (136-145); Total Protein 6.8 g/dL (6.4-8.2)
--- NOTE | 2021-04-08 22:00 | DI.CT_ITS ---
Exam(s) CT ABDOMEN PELVIS W EXAM: CT ABDOMEN PELVIS W CLINICAL HISTORY: dx diverticulitis on tuesday, worsening. TECHNIQUE: Imaging Protocol: Axial computed tomography images with coronal and sagittal reformatted images were created and reviewed CONTRAST MATERIAL: Intravenous: Omnipaque 100cc Oral: None COMPARISON: CT CT ABDOMEN PELVIS W from 04/03/2021 FINDINGS: VISUALIZED LUNG BASES: No nodules nor pleural effusions evident. ABDOMEN: There is no ascites. LIVER: There are no focal hepatic lesions evident. No evidence of a [place] abscess. No air in the portal venous system. GALLBLADDER/BILIARY: Gallbladder is again noted be surgically absent. CBD is not dilated. PANCREAS: No evidence of pancreatic mass nor dilatation of the pancreatic duct. SPLEEN: Spleen size is upper normal. No intrasplenic lesions splenic and portal veins are patent. ADRENALS: There are no significant adrenal masses. KIDNEYS:Small cyst in the lateral cortex of the right kidney is noted. Small cyst in the posterior a spect of the left kidney is noted. No other significant focal renal findings. No solid renal masses . No calculi nor hydronephrosis.. ABDOMINAL AORTA: Abdominal aorta is not enlarged. LYMPH NODES:There is no retroperitineal nor paraaortic adenopathy. ABDOMINAL WALL: No evidence of significant anterior abdominal wall hernia. PELVIS: GI: No evidence of appendicitis.Under digested pill in the lower cecum noted.With respect to the sigm oid colon, there is again noted significant wall edema and Josselyn sigmoid stranding consistent with acu te diverticulitis, exhibiting exhibiting minimal if any significant improvement. I feel this patient is at significant risk for developing abscess, this in the left adnexal region adjacent to the sigmo id. There is no free fluid in the most dependent aspect of the pelvis. LYMPH NODES: There is no intrapelvic nor inguinal adenopathy. REPRODUCTIVE: Finding in the cul-de-sac noted which is probably an ovarian cyst. URINARY BLADDER: No gas within the lumen to suggest fistulous communication. No other intravesicular findings. OSSEOUS: No significant osseous lesions. IMPRESSION: 1. Compared to 04/03/2021 there is minimal if any significant improvement in the sigmoid diverticulit is. Suggestion here of early developing abscess related to the diverticulitis involving the left adn exal region. 2. There is no air in the urinary bladder to suggest fistulous communication. 3. The gallbladder is again noted be surgically absent. Biliary tree is not dilated. This study 1st read by [facility] My final report called to ER provider 04/09/2021 8:02 a.m. RADIATION DOSE DELIVERED: 919.64mGy.cm Total DLP DATA REPOSITORY: All CT scans at this facility are submitted to the National Radiology Data Registry (NRDR) Dose Index Registry (DIR) with the [employer] (ACR). RADIATION OPTIMIZATION: All CT scans at this facility use at least one of these dose optimization te chniques: automated exposure control; mA and/or kV adjustment per patient size (includes targeted exa ms where dose is matched to clinical indication); or iterative reconstruction.
[2021-04-08] MEDS: Omnipaque 350 MG/ML 100 ML BTL IJ (22:02)
[2021-04-08] MEDS: Normal Saline - Diluent 50 ML VIAL IV (22:07)
[2021-04-08] MEDS: Normal Saline Flush 10 ML SYR IVP (22:07)
[2021-04-08] MEDS: Lactated Ringers 1,000 ML 1000 ML IV (22:23)
--- NOTE | 2021-04-08 22:48 | ED.GENADUL_ITS ---
Discharge Plan Disposition Patient Disposition: HOME Condition: Stable Discharge Details Clinical Impression: Diverticulitis Primary Care Provider: Rena Fisher ED Provider: Victorino Lala Home Meds and New Rx's Prescriptions: New metoclopramide HCl [Reglan] 5 mg tablet 5 mg PO TID Qty: 10 RF: 0 Continued ibuprofen 600 MG tablet 600 mg PO QID PRN (Reason: Pain) Qty: 30 RF: 0 ciprofloxacin HCl [Cipro] 500 mg tablet 500 mg PO Q12H Qty: 20 RF: 0 metronidazole [Flagyl] 500 mg tablet 500 mg PO QID 10 Days Qty: 40 RF: 0 Discontinued ondansetron HCl [Zofran] 4 mg tablet 4 mg PO Q8H PRNQty: 10 RF: 0 Discharge Instructions Instructions: Diverticulitis (ED) Additional Instructions: CT imaging reveals that your diverticulitis is improving. If symptoms persist an outpatient colonoscopy may be indicated. Continue antibiotics as directed, discontinue Zofran, add on Reglan. Plenty of fluids to avoid dehydration. Please watch for new or worsening symptoms and return to the ER for any concerns. Otherwise please contact your primary care provider tomorrow to discuss prompt outpatient reevaluation. I am providing you with a work note for the next 2 days Stand Alone Forms: Work Release Medical Decision Making 65-year-old female diagnosed with uncomplicated diverticulitis on Tuesday, has been taking her Cipro and Flagyl since then but discontinued taking Zofran because she did not like what she describes as the side effects. Clinically she appears well, nontoxic but given her ongoing symptoms will obtain IV access, CBC, CMP, lactate, urinalysis and will obtain repeat CT imaging of her abdomen and pelvis. Patient will be given IV fluid and Zofran in the meantime. She is agreeable with this plan and has no additional questions or concerns. Laboratory values reveal a creatinine of 1.3, GFR of 41.24, white blood cell count normal. Lactate 0.7. Urinalysis trace blood, trace leukoesterase Discussed her initial laboratory values. Patient reports that she worked 6 hours today and maybe overdid it. She is concerned that she is working 9 hours tomorrow and 10 hours the following day. I will provide a work note. CT pending Discussed CT findings with patient. She has only been on antibiotics for 5 days. She will continue taking antibiotic as directed, I will provide a work note for the next 2 days, we discussed the importance of staying hydrated, and the potential need for outpatient colonoscopy for further evaluation. I will provide her a different antiemetic as she feels that the Zofran causes her to have heartburn. Patient has no additional questions or concerns and is comfortable with this plan peer Medical Records Medical records reviewed: Yes I reviewed the patient's medical records. Imaging Data Radiologic Study: Radiologist's impression: 04/08/21 22:35 Urine - Reflex from Ua Urine Culture - Pending Laboratory Tests Range/Units 04/08/21 04/08/21 04/08/21 20:36 21:07 21:10 WBC (4.4-10.8) 10^3/uL 7.86 RBC (3.93-5.22) 10^6/uL 4.11 Hgb (11.2-15.7) g/dL 12.2 Hct (36.0-46.0) % 36.6 MCV (80-95) fL 89.1 MCH (27.0-33.0) pg 29.7 MCHC (32.0-36.0) % 33.3 RDW (11.7-14.6) % 11.9 Plt Count (130-400) 10^3/uL 223 MPV (8.0-11.0) fL 10.7 Immature Gran % 0.6 Neutrophils % 72.1 Lymphocytes % 13.2 Monocytes % 11.8 Eosinophils % 2.0 Basophils % 0.3 Nucleated RBC % % 0 Absolute Neutrophils (1.2-6.7) 10^3/uL 5.66 Absolute Lymphocytes (1.2-3.4) 10^3/uL 1.04 L Absolute Monocytes (0.1-0.8) 10^3/uL 0.93 H Absolute Eosinophils (0.0-0.7) 10^3/uL 0.16 Absolute Basophils (0.0-0.2) 10^3/uL 0.02 VBG Lactate (0.6-1.4) mmol/L 0.7 Sodium (136-145) mmol/L 141 Potassium (3.5-5.1) mmol/L 3.4 L Chloride (98-107) mmol/L 106 Carbon Dioxide (21.0-32.0) mmol/L 26.4 Anion Gap (3-11) mmol/L 8.6 BUN (7-18) mg/dL 19 H Creatinine (0.55-1.02) mg/dL 1.3 H Estimated GFR/1.73 m2 (mL/min/1.73m2) 41.24 Glucose (74-106) mg/dL 109 H Calcium (8.5-10.1) mg/dL 9.0 Total Bilirubin (0.2-1.0) mg/dL 0.4 AST (15-37) U/L 40 H ALT (14-59) U/L 53 Alkaline Phosphatase (46-116) U/L 186 H Total Protein (6.4-8.2) g/dL 6.8 Albumin (3.4-5.0) g/dL 3.2 L Lipase (73-393) U/L 65 Urine Color (Yellow) Urine Clarity (Clear) Urine pH (5-8) Ur Specific [place] (1.005-1.025) Urine Protein (Negative) mg/dL Urine Ketones (Negative) mg/dL Urine Blood (Negative) Urine Nitrite (Negative) Urine Bilirubin (Negative) Urine Urobilinogen (Up TO 0.2) EU/dL Ur Leukocyte Esterase (Negative) Urine RBC (0-2) HPF Urine WBC (0-5) HPF Ur Epithelial Cells (Negative) HPF Urine Crystals (Negative) HPF Urine Bacteria (Negative) HPF Urine Casts (Negative) LPF Urine Mucus (Negative) Urine Other (Negative) Ur Culture Indicated? Urine Glucose (Negative) mg/dL Range/Units 04/08/21 22:35 WBC (4.4-10.8) 10^3/uL RBC (3.93-5.22) 10^6/uL Hgb (11.2-15.7) g/dL Hct (36.0-46.0) % MCV (80-95) fL MCH (27.0-33.0) pg MCHC (32.0-36.0) % RDW (11.7-14.6) % Plt Count (130-400) 10^3/uL MPV (8.0-11.0) fL Immature Gran % Neutrophils % Lymphocytes % Monocytes % Eosinophils % Basophils % Nucleated RBC % % Absolute Neutrophils (1.2-6.7) 10^3/uL Absolute Lymphocytes (1.2-3.4) 10^3/uL Absolute Monocytes (0.1-0.8) 10^3/uL Absolute Eosinophils (0.0-0.7) 10^3/uL Absolute Basophils (0.0-0.2) 10^3/uL VBG Lactate (0.6-1.4) mmol/L Sodium (136-145) mmol/L Potassium (3.5-5.1) mmol/L Chloride (98-107) mmol/L Carbon Dioxide (21.0-32.0) mmol/L Anion Gap (3-11) mmol/L BUN (7-18) mg/dL Creatinine (0.55-1.02) mg/dL Estimated GFR/1.73 m2 (mL/min/1.73m2) Glucose (74-106) mg/dL Calcium (8.5-10.1) mg/dL Total Bilirubin (0.2-1.0) mg/dL AST (15-37) U/L ALT (14-59) U/L Alkaline Phosphatase (46-116) U/L Total Protein (6.4-8.2) g/dL Albumin (3.4-5.0) g/dL Lipase (73-393) U/L Urine Color (Yellow) Yellow Urine Clarity (Clear) Clear Urine pH (5-8) 5.5 Ur Specific [place] (1.005-1.025) <= 1.005 Urine Protein (Negative) mg/dL Negative Urine Ketones (Negative) mg/dL Trace H Urine Blood (Negative) Trace-intact H Urine Nitrite (Negative) Negative Urine Bilirubin (Negative) Negative Urine Urobilinogen (Up TO 0.2) EU/dL 0.2 Ur Leukocyte Esterase (Negative) Trace H Urine RBC (0-2) HPF Negative Urine WBC (0-5) HPF 5-10 Ur Epithelial Cells (Negative) HPF Few Urine Crystals (Negative) HPF Negative Urine Bacteria (Negative) HPF Negative Urine Casts (Negative) LPF Negative Urine Mucus (Negative) Negative Urine Other (Negative) Negative Ur Culture Indicated? Yes Urine Glucose (Negative) mg/dL Negative Radiologic Study #2: Attestation: I personally reviewed and interpreted this imaging study as follows: Imaging: CT Scan Radiologist's impression: IMPRESSION: 1. Diverticulosis with sigmoid diverticulitis. When compared to the prior examination, the sigmoid colonic wall thickening and the pericolonic stranding has improved slightly. I do not see a well organized drainable abscess and there is no free air to indicate karen viscus perforation. Follow-up confirming complete resolution of the wall thickening is advised to exclude an underlying colonic wall mass. 2. Slightly hyperdense right ovarian cyst suggestive of a hemorrhagic cyst. 3. Mild hepatic steatosis. 4. Status post cholecystectomy. Lab Data Lab results reviewed: Yes I reviewed the patient's lab results. HPI General Mode of arrival: ambulatory . Date/Time Provider Initiated Documentation: 04/08/21 20:11 . Limitations to Documentation: no limitations . Information obtained by: patient . HPI Narrative: This is a 65-year-old female, past medical history of anxiety, migraines, diagnosed with diverticulitis on Tuesday, presenting to the ER this evening complaining of ongoing abdominal pain and nausea. Patient states that she has not been taking her Zofran as she feels as though that medication gave her heartburn. She has been taking her antibiotics as directed. She denies any vomiting. She does report a couple episodes of loose stools. Occasionally feels generally weak. Denies recent trauma, fever, chest pain, shortness of breath, back pain, dysuria, skin rash. Reports decreased p.o. intake given her nausea Related Data Home Medications Medication Instructions Recorded Confirmed ibuprofen 600 mg PO QID PRN #30 tab 02/09/15 04/08/21 ciprofloxacin HCl [Cipro] 500 mg PO Q12H #20 tab 04/03/21 04/08/21 metronidazole [Flagyl] 500 mg PO QID 10 Days #40 tab 04/03/21 04/08/21 metoclopramide HCl [Reglan] 5 mg PO TID #10 tab 04/08/21 Previous Rx's Medication Instructions Recorded ibuprofen 600 mg PO QID PRN #30 tab 02/09/15 ciprofloxacin HCl [Cipro] 500 mg PO Q12H #20 tab 04/03/21 metronidazole [Flagyl] 500 mg PO QID 10 Days #40 tab 04/03/21 metoclopramide HCl [Reglan] 5 mg PO TID #10 tab 04/08/21 Allergies Allergy/AdvReac Type Severity Reaction Status Date / Time cefdinir Allergy Severe swelling Verified 04/08/21 20:29 cephalexin Allergy Severe facial Verified 04/08/21 20:29 swelling codeine Allergy Severe body and Verified 04/08/21 20:29 throat swells Penicillins Allergy Severe throat Verified 04/08/21 20:29 closes up strawberry Allergy Severe Swelling/Ed Verified 04/08/21 20:29 aiyana Sulfa (Sulfonamide Allergy Severe body swells Verified 04/08/21 20:29 Antibiotics) General Stated Complaint: Abd Prob JOSAFAT: 3 Review of Systems Constitutional Constitutional: Denies fever(s) Cardiovascular Cardiovascular: Denies chest pain and Denies dyspnea Respiratory Respiratory: Denies dyspnea Gastrointestinal Gastrointestinal: Reports abdominal pain, Denies melena, Denies hematochezia, Denies constipation, Reports diarrhea, Reports nausea and Denies vomiting Genitourinary Genitourinary: Denies dysuria Musculoskeletal Musculoskeletal: Denies back pain Integumentary/Breasts Skin/Breast: Denies rash PFSH Medical History Abdominal pain Mod-Severe .. x3 days, LLQ -->RLQ w/ suprapubic tenderness. Diverticulits? Colitis? Arthralgia of pelvic region and thigh (10/26/13) prob contusion Biliary dyskinesia KINA II (cervical intraepithelial neoplasia II) Diverticulosis Generalized anxiety disorder (03/10/16) Migraine Surgical History History of colonoscopy (~09/04/19) 08/28 - Tubular adenoma. 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[employer] What is your relationship status?: Panel score (0-1 are the most socially isolated patients): 1 What type of physical activity do you participate in: regular exercise Seatbelt use: always Drive intox or ride w/intox commercial collections driver: No Working smoke detector in home: Yes Fire extinguisher in home: Yes Carbon monox detector in home: Yes Do you feel safe at home: Yes Do you feel safe in your relationship?: Yes Exam Const General: cooperative, healthy appearing, comfortable and no acute distress Orientation: alert and awake [facility] Head: normal to inspection, normocephalic and atraumatic Mouth: moist mucous membranes Eyes General: appearance normal, both eyes and all related structures Conjunctivae: conjunctivae normal Neck Neck: normal visual inspection, trachea midline and supple Resp Effort & Inspection: normal respiratory effort and able to speak in complete sentences Auscultation: clear to auscultation bilaterally Cardio Rate: regular rate Rhythm: regular rhythm GI Palpation: soft, not firm, no guarding, no pulsatile masses and tender (Diffuse, mild) Auscultation: normal bowel sounds Back/Spine/Pelvis Back: No back tenderness Skin General skin exam: no rashes or lesions noted Neuro General: patient alert, patient awake, moves all extremities and no focal motor deficits Sensory Exam: no sensory deficits noted Psych Appearance: grossly normal Mental Status: mental status grossly normal Course Vital Signs Vital signs: Vital Signs Temperature 36.7 C 04/08/21 20:22 Pulse 80 04/08/21 20:22 Respiratory Rate 15 04/08/21 20:22 Blood Pressure 131/75 04/08/21 20:22 Pulse Oximetry 98 04/08/21 20:22 Temperature 36.7 C 04/08/21 20:22 Temperature Source Tympanic 04/08/21 20:22 Pulse 80 04/08/21 20:22 Respiratory Rate 15 04/08/21 20:22 Respiratory Effort 04/08/21 20:26 Blood Pressure 131/75 04/08/21 20:22 Blood Pressure Position Supine 04/08/21 20:22 Pulse Oximetry 98 04/08/21 20:22 Oxygen Delivery Method Room Air 04/08/21 20:22 Oxygen Flow Rate 0 04/08/21 20:22 Pain Level 5 04/08/21 20:22 Lab/Test Results Lab/Test Results: Laboratory Tests Range/Units 04/08/21 04/08/21 04/08/21 20:36 21:07 21:10 WBC (4.4-10.8) 10^3/uL 7.86 RBC (3.93-5.22) 10^6/uL 4.11 Hgb (11.2-15.7) g/dL 12.2 Hct (36.0-46.0) % 36.6 MCV (80-95) fL 89.1 MCH (27.0-33.0) pg 29.7 MCHC (32.0-36.0) % 33.3 RDW (11.7-14.6) % 11.9 Plt Count (130-400) 10^3/uL 223 MPV (8.0-11.0) fL 10.7 Immature Gran % 0.6 Neutrophils % 72.1 Lymphocytes % 13.2 Monocytes % 11.8 Eosinophils % 2.0 Basophils % 0.3 Nucleated RBC % % 0 Absolute Neutrophils (1.2-6.7) 10^3/uL 5.66 Absolute Lymphocytes (1.2-3.4) 10^3/uL 1.04 L Absolute Monocytes (0.1-0.8) 10^3/uL 0.93 H Absolute Eosinophils (0.0-0.7) 10^3/uL 0.16 Absolute Basophils (0.0-0.2) 10^3/uL 0.02 VBG Lactate (0.6-1.4) mmol/L 0.7 Sodium (136-145) mmol/L 141 Potassium (3.5-5.1) mmol/L 3.4 L Chloride (98-107) mmol/L 106 Carbon Dioxide (21.0-32.0) mmol/L 26.4 Anion Gap (3-11) mmol/L 8.6 BUN (7-18) mg/dL 19 H Creatinine (0.55-1.02) mg/dL 1.3 H Estimated GFR/1.73 m2 (mL/min/1.73m2) 41.24 Glucose (74-106) mg/dL 109 H Calcium (8.5-10.1) mg/dL 9.0 Total Bilirubin (0.2-1.0) mg/dL 0.4 AST (15-37) U/L 40 H ALT (14-59) U/L 53 Alkaline Phosphatase (46-116) U/L 186 H Total Protein (6.4-8.2) g/dL 6.8 Albumin (3.4-5.0) g/dL 3.2 L Lipase (73-393) U/L 65
[2021-04-08 22:49] LABS: Bilirubin Negative (Negative); Blood Trace-intact (Negative); Clarity Clear (Clear); Glucose Negative (Negative); Ketones Trace mg/dL (Negative); Leukocyte Esterase Trace (Negative); Nitrite Negative (Negative); Specific Gravity <= 1.005 (1.005-1.025); Urobilinogen 0.2 EU/dL (Up TO 0.2); pH 5.5 (5-8)
[2021-04-08 23:05] LABS: Bacteria Negative HPF (Negative); C & S Indicated? Yes; Casts Negative LPF (Negative); Crystals Negative HPF (Negative); Epithelial Cells Few HPF (Negative); Mucus Negative (Negative); Other Cells Negative (Negative); RBC Negative HPF (0-2)
--- NOTE | 2021-04-08 23:08 | DI.VRAD_ITS ---
PROCEDURE INFORMATION: Exam: CT Abdomen And Pelvis With Contrast Exam date and time: 04/08/2021 10:10 PM Age: 65 years old Clinical indication: Other: Dx diverticulitis on Tuesday, worsening TECHNIQUE: Imaging protocol: Computed tomography of the abdomen and pelvis with contrast. Radiation optimization: All CT scans at this facility use at least one of these dose optimization techniques: automated exposure control; mA and/or kV adjustment per patient size (includes targeted exams where dose is matched to clinical indication); or iterative reconstruction. Contrast material: OMNIPAQUE 350; Contrast volume: 100 ml; Contrast route: INTRAVENOUS (IV); COMPARISON: CT ABDOMEN PELVIS W 04/03/2021 1:09 PM FINDINGS: Lungs: There is mild dependent atelectasis within the lung bases. Heart: The cardiac chambers are grossly unremarkable. Liver: Mild hepatic steatosis. Gallbladder and bile ducts: Status post cholecystectomy. Pancreas: No peripancreatic inflammatory infiltration or fluid. No ductal dilation. Spleen: No splenomegaly or splenic mass. Adrenal glands: Normal. No mass. Kidneys and ureters: There are a few tiny low-density renal lesions which are too small to characterize. The kidneys enhance symmetrically and I do not see nephrolithiasis, ureterolithiasis or hydronephrosis. Stomach and bowel: There is diverticulosis most severe in the sigmoid colon where there is a short segment of colonic wall thickening, pericolonic stranding and a trace amount of fluid consistent with acute sigmoid diverticulitis. When compared to the previous examination, the sigmoid colonic wall thickening and the adjacent pericolonic stranding has improved slightly. I do not see a well organized walled off abscess. No additional sites of active diverticular inflammation are seen at this time. Appendix: No evidence of appendicitis. No appendicolith. Intraperitoneal space: There is no definite pneumoperitoneum to indicate karen viscus perforation. Vasculature: No abdominal aortic aneurysm. The portal, splenic and superior mesenteric veins appear patent. Lymph nodes: No enlarged lymph nodes within the retroperitoneal space or mesentery. Urinary bladder: Unremarkable as visualized. Reproductive: There is a 2.5 cm slightly hyperdense right ovarian cyst (Hounsfield units: 16.1). Bones/joints: Unremarkable. No acute fracture. No osteolytic or blastic bone lesions. Soft tissues: Paraspinous and extracorporeal soft tissues are unremarkable. IMPRESSION: 1. Diverticulosis with sigmoid diverticulitis. When compared to the prior examination, the sigmoid colonic wall thickening and the pericolonic stranding has improved slightly. I do not see a well organized drainable abscess and there is no free air to indicate karen viscus perforation. Follow-up confirming complete resolution of the wall thickening is advised to exclude an underlying colonic wall mass. 2. Slightly hyperdense right ovarian cyst suggestive of a hemorrhagic cyst. 3. Mild hepatic steatosis. 4. Status post cholecystectomy. Dictated and Authenticated by: Brad Adkins MD. Ordering:LORENZA Gleason MD
== END 2021-04-08 23:45 | disposition home or self-care (01) ==
PROVIDERS: Emergency Provider Physician Assistant; PCP Internal Medicine
DX: K57.92 Diverticulitis of intestine, part unspecified, without perforation or abscess without bleeding (principal)
CPT/HCPCS: 36415; 80053; 83690; 96361; 96374; 96376; 99285; 74177; 81003; 81015; 83605; 85025; 87086; 99284; J2405; J3490

== ENCOUNTER 2021-04-09 10:53 | Inpatient (IN) | payer BC, SELFPAY ==
[2021-04-09 12:10] VITALS: BP 133/82; PULSE 71; RESP 16; TEMP 36.4; O2SAT 99
--- NOTE | 2021-04-09 13:14 | W.PM.HP.N ---
Date of service: 04/09/21 Time of Service: 13:14 Assessment and Plan Assessment and plan (1) Diverticulitis: Status: Chronic Assessment and plan: I did personally review her CT scans and I do think that her scan does look worse. Clinically she feels about the same and not significantly better and is still having a lot of nausea, and cannot tolerate fluids. Patient is admitted for IV antibiotics, IV fluids, and bowel rest to treat her incompletely treated diverticulitis 60 minutes spent in consultation with patient today History of Present Illness Narrative: Patient came into the emergency room on 625 complaining of abdominal pain and nausea. A CT was ordered which showed acute diverticulitis. She had a low-grade white count. She was started on Cipro and Flagyl and sent home. She returned to the ER on , complaining of nausea abdominal pain and still not feeling well. Repeat white count was normal. Repeat CT was slightly worse. I was asked to review the CTs by the ED today. I did contact the patient by phone and she is still not feeling good. I am admitting her for IV antibiotics. Patient states she has never had any diverticulitis in the past. she denies any unusual activity she has not been constipated. No camping or traveling no changes in medications. No destruction of diet or her usual routine no trauma or injury. She denies constipation or straining to move her bowels. She is very nauseous. She is not able to eat. She is not had any fever or chills. She has had no bowel movements for the last 2 days. She has had no bleeding. She has had no weight loss. Her bowels prior, prior to this episode, were normal for her and she has not experienced any changes. She has not had any weight loss. She describes the pain as in the left/sigmoid colon and up to splenic flexure. On exam she has does not have peritonitis and does have good bowel sounds. She is very nauseous and has been unable to even tolerate water. She is not actively throwing up. She has no appetite She did have a colonoscopy with Dr. Keane in 08.28 that did show mild diverticular disease confined to the sigmoid colon. Review of Systems All systems reviewed & are unremarkable except as noted in HPI and below PFSH Medical History Abdominal pain Mod-Severe .. x3 days, LLQ -->RLQ w/ suprapubic tenderness. Diverticulits? Colitis? Arthralgia of pelvic region and thigh (10/26/13) prob contusion Biliary dyskinesia KINA II (cervical intraepithelial neoplasia II) Diverticulosis Generalized anxiety disorder (03/10/16) Migraine Surgical History History of colonoscopy (~09/04/19) 08/28 - Tubular adenoma. 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 [employer] What is your relationship status?: Panel score (0-1 are the most socially isolated patients): 1 What type of physical activity do you participate in: regular exercise Seatbelt use: always Drive intox or ride w/intox driver education instructor: No Working smoke detector in home: Yes Fire extinguisher in home: Yes Carbon monox detector in home: Yes Do you feel safe at home: Yes Do you feel safe in your relationship?: Yes Meds Allergies and Home Medications Allergies Allergy/AdvReac Type Severity Reaction Status Date / Time cefdinir Allergy Severe swelling Verified 04/08/21 20:29 cephalexin Allergy Severe facial Verified 04/08/21 20:29 swelling codeine Allergy Severe body and Verified 04/08/21 20:29 throat swells Penicillins Allergy Severe throat Verified 04/08/21 20:29 closes up strawberry Allergy Severe Swelling/Ed Verified 04/08/21 20:29 aiyana Sulfa (Sulfonamide Allergy Severe body swells Verified 04/08/21 20:29 Antibiotics) Home Medications Medication Instructions Recorded Confirmed Type ibuprofen 600 mg PO QID PRN #30 tab 02/09/15 04/09/21 Rx ciprofloxacin HCl [Cipro] 500 mg PO Q12H #20 tab 04/03/21 04/09/21 Rx metronidazole [Flagyl] 500 mg PO QID 10 Days #40 tab 04/03/21 04/09/21 Rx metoclopramide HCl [Reglan] 5 mg PO TID #10 tab 04/08/21 04/09/21 Rx Exam Const General: cooperative, healthy appearing, comfortable, no acute distress, well developed and well groomed Nutritional Appearance: average body habitus and well nourished Orientation: alert, awake and oriented x3 HENMT Head: normal to inspection, normocephalic and atraumatic Ears: hearing grossly normal bilaterally and external ears normal General nose exam: external nose normal Face and sinus: normal facial exam and sinuses nontender Mouth: oral mucosae normal, lip normal, tongue normal and moist mucous membranes Teeth and gingiva: dentition normal Eyes General: appearance normal, both eyes and all related structures Conjunctivae: conjunctivae normal Sclera: sclerae normal Pupils: PERRL Neck Neck: normal visual inspection and full ROM Chest Chest: normal inspection of the chest Resp Effort & Inspection: normal respiratory effort, able to speak in complete sentences, no cough, no nasal flaring, not tachypneic and no use of accessory muscles Auscultation: clear to auscultation bilaterally, no rales, no rhonchi and no wheezes Cardio Jugular venous pressure: no JVD Rate: regular rate Rhythm: regular rhythm GI Inspection: normal to inspection, no edema and non-distended Palpation: soft, no masses, tender and No ascites Auscultation: normal bowel sounds Abdomen image: 1. Area of pain 2. Area of pain Skin General skin exam: no rashes or lesions noted Trauma: no lacerations or abrasions Neuro General: patient alert, patient oriented x3, oriented, gait normal, moves all extremities, no focal motor deficits and CN's II-XI intact bilaterally Cognition: normal cognition Speech: speech normal Gait: normal gait Motor: muscle tone normal throughout Extrem General: normal to inspection, full ROM and no clubbing, cyanosis or edema Psych Appearance: grossly normal and well kempt Mental Status: mental status grossly normal Speech and Movement: speech and movement normal Affect: normal affect Results Labs Result diagrams: 04/09/21 13:15 04/09/21 13:15
[2021-04-09 13:50] LABS: ALT 47 U/L (14-59); AST 36 U/L (15-37); Alkaline Phosphatase 167 U/L (46-116); Anion Gap 9.5 mmol/L (3-11); BUN 15 mg/dL (7-18); Bilirubin, Total 0.4 mg/dL (0.2-1.0); CO2 25.5 mmol/L (21.0-32.0); CREATININE 1.1 mg/dL (0.55-1.02); Calcium 8.6 mg/dL (8.5-10.1); Chloride 107 mmol/L (98-107); Estimated GFR 50.01 (mL/min/1.73m2); Glucose 93 mg/dL (74-106); Sodium 142 mmol/L (136-145); Total Protein 6.4 g/dL (6.4-8.2)
[2021-04-09 13:52] LABS: Source Nasal/Nares
[2021-04-09] MEDS: levoFLOXacin 750 MG/150 ML BAG 100 MG IVPB (14:11)
[2021-04-09] MEDS: DEXTROSE 5%-0.45% SALINE 1,000 ML 125 ML IV ×2 (14:12→23:47)
[2021-04-09] MEDS: Enoxaparin 40 MG/0.4 ML SYR SC (14:12)
[2021-04-09 14:51] LABS: COVID-19 PCR Negative (Negative)
[2021-04-09 15:44] VITALS: BP 124/80; PULSE 65; RESP 17; TEMP 36.5; O2SAT 98
[2021-04-09 15:48] VITALS: BP 124/80; PULSE 65; RESP 17; TEMP 36.5; O2SAT 98
[2021-04-09 16:00] VITALS: BP 124/80; PULSE 65; RESP 17; TEMP 36.5; O2SAT 99
[2021-04-09] MEDS: ACETAMINOPHEN 1,000 MG/100 ML BTL 400 MG IVPB (16:02)
[2021-04-09] MEDS: Normal Saline Flush 10 ML SYR IVP ×2 (16:02→19:18)
[2021-04-09] MEDS: metroNIDAZOLE 500 MG/100 ML BAG 100 MG IVPB ×2 (16:41→23:48)
[2021-04-09] MEDS: Ondansetron 4 MG/2 ML VIAL IVP ×2 (16:43→23:41)
[2021-04-09] MEDS: Ketorolac 15 MG/ML VIAL IVP ×2 (17:21→23:41)
[2021-04-09] MEDS: MORPHine 2 MG/ML SYR IV (19:18)
[2021-04-09 22:54] VITALS: BP 127/80; PULSE 67; RESP 18; TEMP 36.5; O2SAT 98
[2021-04-09 23:19] VITALS: BP 129/80; PULSE 63; RESP 18; TEMP 36.4; O2SAT 99
[2021-04-10] MEDS: ACETAMINOPHEN 1,000 MG/100 ML BTL 400 MG IVPB (05:02)
[2021-04-10] MEDS: Ondansetron 4 MG/2 ML VIAL IVP ×4 (05:02→18:55)
[2021-04-10 06:40] LABS: Platelet Count 173 10^3/uL (130-400)
[2021-04-10] MEDS: DEXTROSE 5%-0.45% SALINE 1,000 ML 125 ML IV ×2 (08:11→19:42)
[2021-04-10] MEDS: metroNIDAZOLE 500 MG/100 ML BAG 100 MG IVPB ×2 (08:11→16:13)
[2021-04-10 08:20] VITALS: BP 135/84; PULSE 61; RESP 17; TEMP 36.5; O2SAT 99
[2021-04-10] MEDS: MORPHine 2 MG/ML SYR IV (10:30)
--- NOTE | 2021-04-10 10:33 | INITIAL_ITS ---
- If Service Date Differs Date of service: 04/10/21 Time of Service: 10:57 Care Management Initial Assess REASON FOR HOSPITALIZATION:: Diverticulitis PAST MEDICAL HISTORY/PAST SURGICAL HISTORY:: Abdominal pain. Mod-Severe .. x3 days, LLQ -->RLQ w/ suprapubic tenderness. Diverticulits? Colitis? Arthralgia of pelvic region and thigh (10/26/13). prob contusion. Biliary dyskinesia. KINA II (cervical intraepithelial neoplasia II). Diverticulosis. Generalized anxiety disorder (03/10/16). Migraine. History of colonoscopy (~09/04/19). 08/28 - Tubular adenoma. 2008- normal. Hx of tubal ligation. S/P laparoscopic cholecystectomy. S/P LEEP PREVIOUS FUNCTIONAL STATUS/SOCIAL/FAMILY SUPPORTS:: Jewels resides in [place], [place] with her , Brendan. She is employed at the [employer] in [place] and is indepdendent at baseline. CURRENT FUNCTIONAL STATUS:: NPO, up out of bed as tolerated; remains on IV ABX and IVF; CM following. ADVANCE DIRECTIVES:: None on file. Has patient been provided with info about the portal/API?: Yes Did the patient sign up for the portal?: Yes (Previously) CODE STATUS:: Full Code INSURANCE COVERAGE / FINANCIAL ISSUES:: BC BS Other CURRENT HOME/COMMUNITY SERVICES/EQUIPMENT:: None noted. PRIMARY CARE PHYSICIAN:: Rena Fisher POTENTIAL DISCHARGE NEEDS:: Follow up appointments. PATIENT/FAMILY EDUCATION NEEDS:: Review discharge instructions, discuss Ask Me Three. TRANSPORTATION:: Jewels drove herself to [facility], she will drive herself home if able. PLAN:: Patient is admitted for IV antibiotics, IV fluids, and bowel rest to treat her incompletely treated diverticulitis. Anticipate she will return home when ready per MD and follow up with her PCP and plan of care as prescribed. She will transport via private vehicle with her .
--- NOTE | 2021-04-10 12:43 | W.PM.PROGNOT ---
Date of Service Date of service: 04/10/21 Time of Service: 12:43 Assessment and Plan Assessment and plan (1) Diverticulitis: Status: Chronic Assessment and plan: Continue IV hydration IV antibiotics NPO for bowel rest Zofran for nausea Activity OOB and ambulation as tolerated. Subjective Subjective Interval history since last seen: Patient reports she is fatigued and nausea's. She states the Zofran is some what helpful. Exam Const General: ill appearing Orientation: alert and oriented x3 Resp Effort & Inspection: normal respiratory effort, no audible wheezes and no cough GI Inspection: normal to inspection Palpation: soft, guarding in the LLQ and tender in the LLQ Auscultation: hypoactive bowel sounds Objective Last Vital Signs Temp 36.5 C 04/10/21 08:20 Pulse 61 04/10/21 08:20 Resp 17 04/10/21 08:20 BP 135/84 04/10/21 08:20 Pulse Ox 99 04/10/21 08:20 Laboratory Results - last 24 hr 04/09/21 04/09/21 04/10/21 13:15 13:20 06:05 Plt Count 173 Sodium 142 Potassium 3.0 L Chloride 107 Carbon Dioxide 25.5 Anion Gap 9.5 BUN 15 Creatinine 1.1 H Estimated GFR/1.73 m2 50.01 Glucose 93 Calcium 8.6 Total Bilirubin 0.4 AST 36 ALT 47 Alkaline Phosphatase 167 H Total Protein 6.4 Albumin 3.0 L COVID-19 Source Nasal/Nares SARS-CoV-2 (PCR) Negative
[2021-04-10] MEDS: Ketorolac 15 MG/ML VIAL IVP ×2 (13:10→18:55)
--- NOTE | 2021-04-10 13:32 | PHA.REVIEW ---
Pharmacy Admission Review - Admission Clinical Review cefdinir Allergy (Severe, Verified 04/08/21 20:29) swelling cephalexin Allergy (Severe, Verified 04/08/21 20:29) facial swelling codeine Allergy (Severe, Verified 04/08/21 20:29) body and throat swells Penicillins Allergy (Severe, Verified 04/08/21 20:29) throat closes up strawberry Allergy (Severe, Verified 04/08/21 20:29) Swelling/Edema Sulfa (Sulfonamide Antibiotics) Allergy (Severe, Verified 04/08/21 20:29) body swells Resuscitation Status Full Code Height 5 ft 8.11 in Weight 71.668 kg - Renal Dosing Renal Dosing: BUN 15 mg/dL (7-18) 04/09/21 13:15 Creatinine 1.1 mg/dL (0.55-1.02) H 04/09/21 13:15 Medications needing adjustments: Reviewed List of meds needing interventions: eCrCl is 52 ml/min -- if crcl worsens to less than 50 then levaquin should be adjusted to q48h - Anticoagulation Anticoagulation: Plt Count 173 10^3/uL (130-400) 04/10/21 06:05 Creatinine 1.1 mg/dL (0.55-1.02) H 04/09/21 13:15 DVT Prophylaxis: Reviewed Medications: Enoxaparin - Opiate Usage Evaluate Pain Scale/Pains Meds: Reviewed (morphine 2mg IVP prn) Scheduled Bowel Reg ordered if on Opiates?: No (NPO currently) - Relevant Labs Sodium 142 mmol/L (136-145) 04/09/21 13:15 Potassium 3.0 mmol/L (3.5-5.1) L 04/09/21 13:15 Chloride 107 mmol/L (98-107) 04/09/21 13:15 Electrolytes, C-Reactive P, ESR: Reviewed (will notify MD about K+) - DM Control DM Control: Glucose 93 mg/dL (74-106) 04/09/21 13:15 Insulin Dosing: N/A - Heart Failure/VA EF%, MARGO's, B-Blockers, Diuretics: N/A - BP Control BP Control: Blood Pressure 135/84 If elevated: Reviewed - Qtc Review If Elevated: N/A - IV to PO Switch IV Medications: Reviewed - Home Meds Home Med List reviewed: Reviewed Relevent Home Meds Not ordered & why?: only acute meds, not on any maintenance meds - Current meds Current Medication Order Review: Reviewed
[2021-04-10] MEDS: levoFLOXacin 750 MG/150 ML BAG 100 MG IVPB (14:42)
[2021-04-10] MEDS: Enoxaparin 40 MG/0.4 ML SYR SC (14:42)
[2021-04-10 15:30] VITALS: BP 145/84; PULSE 63; RESP 17; TEMP 37.4; O2SAT 99
[2021-04-10] MEDS: Dicyclomine 20 MG TAB PO (16:18)
[2021-04-10] MEDS: Pantoprazole 40 MG VIAL IVP (16:59)
[2021-04-10] MEDS: Calcium Carbonate *TUMS* 500 MG CHEW PO ×2 (17:00→21:26)
[2021-04-10 23:56] VITALS: BP 137/82; PULSE 60; RESP 20; TEMP 36.5; O2SAT 98
[2021-04-11] MEDS: metroNIDAZOLE 500 MG/100 ML BAG 100 MG IVPB ×4 (00:39→23:23)
[2021-04-11] MEDS: DEXTROSE 5%-0.45% SALINE 1,000 ML 125 ML IV ×2 (03:57→14:35)
[2021-04-11] MEDS: Ondansetron 4 MG/2 ML VIAL IVP (05:41)
[2021-04-11] MEDS: Dicyclomine 20 MG TAB PO (07:03)
[2021-04-11] MEDS: Promethazine 25 MG TAB PO (07:03)
[2021-04-11 08:24] VITALS: BP 132/79; PULSE 60; RESP 18; TEMP 36.6; O2SAT 99
[2021-04-11] MEDS: Pantoprazole 40 MG VIAL IVP (08:29)
[2021-04-11 09:29] LABS: Abs Immature Grans 0.02 10^3/uL (0.0-0.06); Absolute Basophil Count 0.02 10^3/uL (0.0-0.2); Absolute Eosinophil Count 0.06 10^3/uL (0.0-0.7); Absolute Lymphocyte Count 0.85 10^3/uL (1.2-3.4); Absolute Monocyte Count 0.41 10^3/uL (0.1-0.8); Absolute Neutrophil Count 3.68 10^3/uL (1.2-6.7); Basophils % 0.4; Eosinophils % 1.2; HCT 35.5 % (36.0-46.0); HGB 11.8 g/dL (11.2-15.7); Immature Grans % 0.4; Lymphocytes % 16.9; MCH 29.9 pg (27.0-33.0); MCHC 33.2 % (32.0-36.0); MCV 90.1 fL (80-95); Monocytes % 8.1; Nucleated RBC 0 %; Platelet Count 180 10^3/uL (130-400); RBC 3.94 10^6/uL (3.93-5.22); RDW 11.9 % (11.7-14.6); RDW-SD 39.5 fL; WBC 5.04 10^3/uL (4.4-10.8)
[2021-04-11 09:37] LABS: Anion Gap 9.1 mmol/L (3-11); BUN 5 mg/dL (7-18); CO2 26.9 mmol/L (21.0-32.0); CREATININE 0.9 mg/dL (0.55-1.02); Calcium 8.9 mg/dL (8.5-10.1); Chloride 107 mmol/L (98-107); Glucose 113 mg/dL (74-106); Magnesium 1.6 mg/dL (1.8-2.4); Sodium 143 mmol/L (136-145)
--- NOTE | 2021-04-11 11:40 | W.PM.PROGNOT ---
Date of Service Date of service: 04/11/21 Time of Service: 11:40 Assessment and Plan Assessment and plan (1) Diverticulitis: Status: Chronic Assessment and plan: Will decrease IV fluids to 80 cc/hr IV antibiotics Advance diet as tolerated to a low fiber diet Phenergan for nausea Activity OOB and ambulation as tolerated. Subjective Subjective Interval history since last seen: Ms Jimenez is feeling a bit better. She is tolerating a clear diet. She has had less nausea and has had several loose stools this morning. No blood. No fevers overnight Exam Const General: cooperative, comfortable and no acute distress Orientation: alert and oriented x3 HENMT Head: normocephalic and atraumatic Resp Effort & Inspection: normal respiratory effort Auscultation: clear to auscultation bilaterally Cardio Rate: regular rate Rhythm: regular rhythm GI Inspection: normal to inspection Palpation: soft, no hepatosplenomegaly and tender (mild LLQ and suprapubic. No guarding or rebound) Auscultation: normal bowel sounds Objective Last Vital Signs Temp 97.9 F 04/11/21 08:24 Pulse 60 04/11/21 08:24 Resp 18 04/11/21 08:24 BP 132/79 04/11/21 08:24 Pulse Ox 99 04/11/21 08:24 Laboratory Results - last 24 hr 04/11/21 04/11/21 04/11/21 09:20 09:20 09:20 WBC 5.04 RBC 3.94 Hgb 11.8 Hct 35.5 L MCV 90.1 MCH 29.9 MCHC 33.2 RDW 11.9 Plt Count 180 MPV 11.0 Immature Gran % 0.4 Neutrophils % 73.0 Lymphocytes % 16.9 Monocytes % 8.1 Eosinophils % 1.2 Basophils % 0.4 Nucleated RBC % 0 Absolute Neutrophils 3.68 Absolute Lymphocytes 0.85 L Absolute Monocytes 0.41 Absolute Eosinophils 0.06 Absolute Basophils 0.02 Sodium 143 Potassium 3.0 L Chloride 107 Carbon Dioxide 26.9 Anion Gap 9.1 BUN 5 L Creatinine 0.9 Estimated GFR/1.73 m2 >= 60.00 Glucose 113 H Calcium 8.9 Magnesium 1.6 L
[2021-04-11] MEDS: MAGNESIUM SULFATE 2 GM/50 ML BAG IVPB (12:42)
--- NOTE | 2021-04-11 13:17 | CMPROGNOTE_ITS ---
Care Management Progress Note S/O: Jewels continues to be closely monitored by surgical services, per Dr. Keane, her IVF have been decreased and her diet advanced. She remains on IV ABX and is experiencing less nausea today. CM continues to follow. A: 65 year old admitted to [facility] 04/09/21 for Acute Diverticulitis P: Jewels will will return home when ready per MD and follow up with her PCP and plan of care as prescribed. She will transport via private vehicle with her .
[2021-04-11] MEDS: Enoxaparin 40 MG/0.4 ML SYR SC (14:35)
[2021-04-11] MEDS: levoFLOXacin 750 MG/150 ML BAG 100 MG IVPB (14:35)
[2021-04-11 16:04] VITALS: BP 142/84; PULSE 61; RESP 18; TEMP 36.4; O2SAT 98
[2021-04-11] MEDS: Acetaminophen 325 MG TAB 650 MG PO (21:10)
[2021-04-11 23:26] VITALS: BP 138/85; PULSE 64; RESP 20; TEMP 36.8; O2SAT 97
[2021-04-12] MEDS: Acetaminophen 325 MG TAB 650 MG PO (06:39)
[2021-04-12] MEDS: Promethazine 25 MG TAB PO (06:40)
[2021-04-12] MEDS: Normal Saline Flush 10 ML SYR IVP (08:20)
[2021-04-12] MEDS: metroNIDAZOLE 500 MG/100 ML BAG 100 MG IVPB ×3 (08:20→23:20)
[2021-04-12] MEDS: Pantoprazole 40 MG VIAL IVP (08:20)
[2021-04-12 08:42] VITALS: BP 155/90; PULSE 61; RESP 18; TEMP 36.6; O2SAT 98
--- NOTE | 2021-04-12 10:25 | W.PM.PROGNOT ---
Date of Service Date of service: 04/12/21 Time of Service: 10:26 Assessment and Plan Assessment and plan (1) Diverticulitis: Status: Chronic Assessment and plan: D/C IV fluids IV antibiotics Advance diet as tolerated to a low fiber diet Phenergan for nausea Activity OOB and ambulation as tolerated. Hopefully Home tomorrow (2) Nausea: Status: Acute Assessment and plan: Suspect this is from Gastritis Continue protonix Add Carafate AC and HS Subjective Subjective Interval history since last seen: Tolerating a soft low fiber diet. Had no nausea most of yesterday but then woke up with nausea again this am. No emesis and was able to eat some eggs without problem Exam Const General: cooperative, comfortable and no acute distress Orientation: alert and oriented x3 HENMT Head: normocephalic and atraumatic Resp Effort & Inspection: normal respiratory effort Auscultation: clear to auscultation bilaterally Cardio Rate: regular rate Rhythm: regular rhythm GI Inspection: normal to inspection Palpation: soft, no hepatosplenomegaly and nontender Auscultation: normal bowel sounds Objective Last Vital Signs Temp 97.9 F 04/12/21 08:42 Pulse 61 04/12/21 08:42 Resp 18 04/12/21 08:42 BP 155/90 H 04/12/21 08:42 Pulse Ox 98 04/12/21 08:42
--- NOTE | 2021-04-12 11:17 | CMPROGNOTE_ITS ---
- If Service Date Differs Date of service: 04/12/21 Time of Service: 11:17 Care Management Progress Note S/O: Jewels was sitting up in bed when CM met with her. She was pleasant in interaction and agreeable to conversation. Jewels denies pain but stated that she still has nausea. Dr. Patel has ordered carafate to help with this. If her nausea is controlled, she will likely be discharged tomorrow. It is unlikely that she will need any new services and she has verbalized the same to CM. A: 65 year old admitted to [facility] 04/09/21 for Acute Diverticulitis P: Jewels will will likely return home with no new services when ready per MD and follow up with her PCP and plan of care as prescribed. She will transport via private vehicle with her . CM will continue to support her and any discharge concerns.
[2021-04-12] MEDS: Sucralfate 1 GM TAB PO ×3 (11:57→21:26)
[2021-04-12] MEDS: levoFLOXacin 750 MG/150 ML BAG 100 MG IVPB (14:06)
[2021-04-12] MEDS: Enoxaparin 40 MG/0.4 ML SYR SC (14:06)
[2021-04-12 15:44] VITALS: BP 127/83; PULSE 84; RESP 18; TEMP 36.4; O2SAT 98
[2021-04-12 23:27] VITALS: BP 133/80; PULSE 79; RESP 18; TEMP 36.7; O2SAT 97
[2021-04-13 07:16] VITALS: BP 138/80; PULSE 64; RESP 19; TEMP 36.3; O2SAT 97
[2021-04-13] MEDS: Polyethylene Glycol 3350 17 GM PACKET PO (07:38)
[2021-04-13] MEDS: Sucralfate 1 GM TAB PO ×2 (07:38→11:18)
[2021-04-13] MEDS: metroNIDAZOLE 500 MG/100 ML BAG 100 MG IVPB (07:38)
[2021-04-13] MEDS: Pantoprazole 40 MG TABCR PO (07:38)
--- NOTE | 2021-04-13 12:43 | PGE_ITS ---
Date of Service Date of service: 04/13/21 Time of Service: 12:43 Assessment and Plan Assessment and plan (1) Diverticulitis: Status: Chronic Assessment and plan: Discharge home today on Levaquin and Flagyl for an additional 48 hrs bioK & yogurt carafate & PPI for 30 days F/u clinic thrusday low fiber diet x1 week no strenuous activity return to ED if pain/nausea/fevers/ >6BM a day (2) Gastritis: Status: Acute Subjective Subjective Interval history since last seen: Pt is doing well. no headaches. No CP or SOB. no productive cough. no dysuria. no leg pain or swelling. Patient is doing well. She was having a lot of nausea and headaches yesterday. Thought she had some gastritis and started her on a PPI and Carafate. There was also question if it was from the dextrose solution. She does not think it is from the Flagyl. She has had she is tolerating regular diet. She has had multiple bowel movements; approximately 3-4 today. They are pudding consistencies-more firm than yesterday, and no blood. She has no headaches nausea today is feeling good and would like to go home. Exam Const General: cooperative, healthy appearing, comfortable, no acute distress, well developed and well groomed Nutritional Appearance: average body habitus and well nourished Orientation: alert, awake and oriented x3 HENMT Head: normal to inspection, normocephalic and atraumatic Ears: hearing grossly normal bilaterally and external ears normal General nose exam: external nose normal Face and sinus: normal facial exam and sinuses nontender Mouth: oral mucosae normal, lip normal, tongue normal and moist mucous membranes Teeth and gingiva: dentition normal Eyes General: appearance normal, both eyes and all related structures Conjunctivae: conjunctivae normal Sclera: sclerae normal Pupils: PERRL Neck Neck: normal visual inspection and full ROM Chest Chest: normal inspection of the chest Resp Effort & Inspection: normal respiratory effort, able to speak in complete sentences, no cough, no nasal flaring, not tachypneic and no use of accessory m uscles Auscultation: clear to auscultation bilaterally, no rales, no rhonchi and no wheezes Cardio Jugular venous pressure: no JVD Rate: regular rate Rhythm: regular rhythm GI Inspection: normal to inspection, no edema and non-distended Palpation: soft, no masses, nontender and No ascites Auscultation: normal bowel sounds Other: No left lower quadrant pain or tenderness. No nausea today. Skin General skin exam: no rashes or lesions noted Trauma: no lacerations or abrasions Neuro General: patient alert, patient oriented x3, oriented, gait normal, moves all extremities, no focal motor deficits and CN's II-XI intact bilaterally Cognition: normal cognition Speech: speech normal Gait: normal gait Motor: muscle tone normal throughout Extrem General: normal to inspection, full ROM and no clubbing, cyanosis or edema Psych Appearance: grossly normal and well kempt Mental Status: mental status grossly normal Speech and Movement: speech and movement normal Affect: normal affect Objective Last Vital Signs Temp 36.3 C L 04/13/21 07:16 Pulse 64 04/13/21 07:16 Resp 19 04/13/21 07:16 BP 138/80 04/13/21 07:16 Pulse Ox 97 04/13/21 07:16
--- NOTE | 2021-04-13 12:54 | W.PM.DS.N ---
Date of service: 04/13/21 Time of Service: 12:54 DS: Diagnosis Discharge Diagnosis (1) Diverticulitis: Status: Chronic (2) Gastritis: Status: Acute Discharge Plan Disposition Patient Disposition: HOME Condition: Improving Discharge Details Reason For Visit: Acute Diverticulitis Admit Date/Time: 04/09/21 12:18 Admit Provider: Mary Rudolph Attending Provider: Mary Rudolph Primary Care Provider: Rena Fisher Home Meds and New Rx's Prescriptions: New levofloxacin 500 mg tablet 500 mg PO DAILY Qty: 2 RF: 0 metronidazole [Flagyl] 500 mg tablet 500 mg PO Q8H 3 Days Qty: 9 RF: 0 pantoprazole [Protonix] 40 mg tablet,delayed release (DR/EC) 40 mg PO DAILY Qty: 30 RF: 6 Bio-K plus 50 billion cell capsule,delayed release(DR/EC) 1 cap PO DAILY Qty: 30 RF: 0 sucralfate [Carafate] 1 gram tablet 1 g PO QACHS Qty: 120 RF: 6 Discontinued ibuprofen 600 MG tablet 600 mg PO QID PRN (Reason: Pain) Qty: 30 RF: 0 ciprofloxacin HCl [Cipro] 500 mg tablet 500 mg PO Q12H Qty: 20 RF: 0 metronidazole [Flagyl] 500 mg tablet 500 mg PO QID 10 Days Qty: 40 RF: 0 metoclopramide HCl [Reglan] 5 mg tablet 5 mg PO TID Qty: 10 RF: 0 Discharge Instructions Instructions: Diverticulitis (GEN), Low Fiber Diet (GEN), Diverticulitis Diet (GEN) Additional Instructions: -Follow-up with Dr. Rudolph in 1 week. Surgery Clinic will call on Tuesday to schedule an appt on 04/16. -soft diet: see below. Continue this diet for 7-10 days. Than slowly transition to high fiber diet. -Continue antibiotics for the next 2 days. Finish all. -Continue PPI and carafate for 30 days. -Probiotics & yogurt daily for 30 days -no straining to move bowels - if you do not move your bowels daily take a dose of OTC milk of magnesia -You may find that your appetite is smaller. Eat 3-6 small meals throughout the day. It is important to drink lots of water after surgery, 6-10 glasses a day. -If you were given an incentive spirometry (breathing newspaper photo editor?), continue to do this 10x/hour while awake. -We do want you up walking, at least 5-6 times per day. This is very important to prevent pneumonia and blood clots. You can climb stairs, take them slowly. -No lifting over 10 pounds. -You may find that you are very tired - this is normal. -Use tylenol as needed for pain. Avoid ibuprofen/NSAID's -return to ED if pain/nausea/fevers/ >6BM a day Gastrointestinal Soft Diet Overview Overview What is a gastrointestinal soft diet? This diet is soft in texture, low in fiber, and easy to digest. The goal is to decrease) in the bowel that may cause and discomfort. This diet is often used after abdominal surgery or as a transitional diet after flares. Meats & Meat Substitutes ? Foods Allowed: Chicken, turkey, fish, tender cuts of beef and pork, ground meats, eggs, creamy nut butters, tofu, skinless hot dogs, sausage patties without whole spices ? Foods to Avoid : Tough, fibrous meats with gristle, meat with casings (hot dogs, sausage, kielbasa), lunch meats with whole spices, shellfish, beans, chunky peanut butter, nuts Fruits and Juices ? Foods Allowed: Fruit juices without pulp, banana, avocado, applesauce, canned peaches and pears, cooked fruit without the skin/seeds ? Foods to Avoid: Juices with pulp, fresh fruit (except banana and avocado), dried fruits, canned fruit cocktail and pineapple, coconut, frozen/thawed berries Vegetables ? Foods Allowed: Well-cooked or canned vegetables, potatoes without skin, tomato sauces, vegetable juice ? Foods to Avoid: Raw vegetables, all corn, all mushrooms, stewed tomatoes, potato skins, stir-hill vegetables, sauerkraut, pickles, olives, all dried beans, peas, and legumes Cereals and Grains ? Foods Allowed: Low- fiber dry or cooked cereals (less than 2 grams fiber per serving), white rice, pasta, macaroni, or noodles ? Foods to Avoid: Cereals with nuts, berries, dried fruits, whole grain cereals, bran cereals, granola, brown or wild rice, whole grain pasta Breads and Crackers ? Foods Allowed: White/refined breads and rolls, plain bagel, toast, plain crackers, gabrielle crackers ? Foods to Avoid: Whole grain breads- including white whole grain; bread/ rolls with raisins, nuts or seeds, multi-grain crackers Dairy ? Foods Allowed: Milk, cheese, yogurt, milkshakes, pudding, ice cream, cottage cheese, sherbet ; lactose free or low lactose versions if lactose intolerant ? Foods to Avoid: Dairy product mixed with fresh fruit (except banana), berries, nuts or seeds Desserts ? Foods Allowed: Plain cake, pudding, custard, ice cream, sherbet, gelatin, fruit whips ? Foods to Avoid: Any dessert that contains nuts, dried fruits, coconut, or fruits with seeds Herbs and Spices ? Foods Allowed: All ground spices or herbs, salt ? Foods to Avoid: Whole spices such as peppercorns, whole cloves, anise seeds, celery seeds, john, yael seeds, and fresh herbs Snacks/Other Foods ? Foods Allowed: Sugar, honey, jelly, mayonnaise, mustard, soy sauce, oil, butter, margarine, marshmallows, cookies without dried fruits or nuts, snack chips and pretzels using refined flours ? Foods to Avoid: Carbonated beverages, jams or jellies with seeds, popcorn After several weeks, slowly start to reintroduce the ?Foods to Avoid? back into your diet unless your doctor has told you otherwise. Try a small portion of one of these foods each day. If it does not bother you within 24 hours, it can be added to your diet. Continue to add new foods in this way. Some people may continue to have food sensitivities and may need to continue to avoid certain foods. If you cannot tolerate a food, avoid that food for a few weeks before you try it again. Guidelines when eating 1. Avoid any food that you cannot tolerate or that causes gas, bloating, or stomach pain. 2. Make time for your meals. Do not eat while you are in a hurry. Cut your food into small pieces. Chew each bite to a mashed potato consistency. Do not eat when you cannot concentrate on chewing well. 3. Drink at least 6-8 cups of fluid per day Fluids include: water, coffee, tea, juice, milk, popsicles, soups, gelatin, pudding, ice cream, sherbet, and yogurt. In addition, choose caffeine-free beverages more often, especially if you are having diarrhea. 4. A daily multivitamin may be recommended if diet is limited in amounts or variety of foods. Do not take any herbal supplements without first checking with your doctor. Activity:: see above Equipment/Supplies:: No Equipment Needed Diet:: see above Discharge Orders Discharge Orders: Discharge Order (Routine); Ordered 04/13/21 Ordered By: Mary Rudolph DS: Summary Time Spent with Patient providing and/or coordinating discharge services: Less than 30 minutes Status at Discharge Functional status at discharge: independent ambulation Overall status at discharge: patient is progressing back to baseline Mental Status: mental status grossly normal Speech and Movement: speech and movement normal Mood: congruent mood Affect: normal affect Exam Psych Mental Status: mental status grossly normal Speech and Movement: speech and movement normal Mood: congruent mood Affect: normal affect DS: Data Vitals/I&O Vitals and I&O: Vital Signs Temperature 36.3 C L 04/13/21 07:16 Temperature Source Tympanic 04/13/21 07:16 Pulse 64 04/13/21 07:16 Pulse Rhythm Regular 04/13/21 09:10 Respiratory Rate 19 04/13/21 07:16 Respiratory Effort Non-Labored 04/13/21 09:10 Respiratory Depth Normal 04/13/21 09:10 Respiratory Pattern Normal 04/13/21 09:10 Blood Pressure 138/80 04/13/21 07:16 Pulse Oximetry 97 04/13/21 07:16 Oxygen Delivery Method Room Air 04/13/21 07:16 Oxygen Flow Rate 0 04/13/21 07:16 Pain Level 0 04/12/21 23:27 Comment 04/12/21 08:42 Intake & Output 04/12/21 04/13/21 04/13/21 23:59 11:59 23:59 Intake Total 100 / 1667.917 340 / 340 Output Total 200 / 200 Balance 100 / 1667.917 140 / 140 Intake: IV 100 / 1297.917 100 / 100 Oral 240 / 240 Output: Urine 200 / 200 Other: Urine Color Yellow Light Jennifer Urine Appearance Clear Clear Urine Odor Normal Comment voiding independently voiding independently Voiding Methods Toilet Toilet [facility] Medical History Abdominal pain Mod-Severe .. x3 days, LLQ -->RLQ w/ suprapubic tenderness. Diverticulits? Colitis? Arthralgia of pelvic region and thigh (10/26/13) prob contusion Biliary dyskinesia KINA II (cervical intraepithelial neoplasia II) Diverticulosis Generalized anxiety disorder (03/10/16) Migraine Surgical History History of colonoscopy (~09/04/19) 08/28 - Tubular adenoma. 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
[2021-04-13] MEDS: Normal Saline Flush 10 ML SYR IVP (13:07)
[2021-04-13] MEDS: levoFLOXacin 750 MG/150 ML BAG 100 MG IVPB (13:07)
--- NOTE | 2021-04-13 14:03 | PDOC.CMDIS ---
- If Service Date Differs Date of service: 04/13/21 Time of Service: 14:03 LACE Index Scoring Tool - Questions: Length of Stay (in days): 4 - 6 Acuity (Admit via E.D.?): No E.D. Visits: 2 - Answers: Total Score: 6 Risk of Readmission: Low Risk Care Management Discharge Reason for Hospitalization: Diverticulitis Discharge Plan: Jewels will be discharged home with no new services. She will follow up with her PCP and surgeon and plan of care and transport with family. Patient/Family Education Needs: Review of discharge instructions, limitations, diet, medications, follow up plan, Ask Me Three.
== END 2021-04-13 14:47 | disposition home or self-care (01) | DRG 392 ==
PROVIDERS: Surgery; Admitting Provider Surgery; PCP Internal Medicine; Visit Provider Surgery
DX: K57.92 Diverticulitis of intestine, part unspecified, without perforation or abscess without bleeding (principal); F41.1 Generalized anxiety disorder; G43.909 Migraine, unspecified, not intractable, without status migrainosus; K82.8 Other specified diseases of gallbladder; Z20.822 Contact with and (suspected) exposure to COVID-19; R11.0 Nausea; K29.70 Gastritis, unspecified, without bleeding
CPT/HCPCS: 36415; 80048; 80053; 87635; J1650; 83735; 85025; 85049; J0131; J1885; J1956; J2270; J2405

== ENCOUNTER 2022-05-07 00:19 | Outpatient (CLI) | payer BC, SELFPAY ==
--- OUTSIDE RECORDS SUMMARY | 2022-05-07 00:20 | XMS_ITS | Clinical Summary ---
:1955 Author Organization [facility] Address [address] [place] [id number] Care Team Providers Name Role Phone Rena Fisher MD Primary Care Provider Social History Tobacco Use Types Packs/Day Years Used Date Never Assessed Sex Assigned at Date Recorded Not on file Plan of Treatment Not on file Care Teams Collections Director Relationship Specialty Start Date End Date Rena Fisher MD PCP - General 12/20/11 4 [facility] [place] [address]
--- OUTSIDE RECORDS SUMMARY | 2022-05-07 00:21 | XMS_ITS | Encounter Summary ---
:1955 Author Organization [facility] Address [address] [place] [address] Care Team Providers Name Role Phone Nash Fonseca MD Primary Care Provider Encounter Details Date Type Department Care Team Description 07/22/2005 Results Only [facility] - Donell King, conversion DIRECTOR MATERNAL CHILD [address] [place] [address] [place] [address] (Wo rk) Social History Tobacco Use Types Packs/Day Years Used Date Never Assessed Sex Assigned at Date Recorded Not on file documented as of this encounter Plan of Treatment Not on filedocumented as of this encounter Procedures Procedure Name Priority Date/Time Associated Diagnosis Comme nts CYTOPATHOLOGY Routine 07/22/2005 0:00 EDT Results for this procedure are i n the results section . documented in this encounter Results CYTOPATHOLOGY (07/22/2005 0:00 EDT) Pathology Report: CYTOPATHOLOGY REPORT [facility] Reports generated via electronic interface contain rita ginal data; however they are lacking the format of the original re port. Caution should be taken when reading/interpreting unfo rmatted reports. Name: ? KOREY JIMENEZ ? Accession #: ? [id number] : ? 1955 (Age: 49) ??F ?Collect Date: ? 07/10 Location: ? [facility] ? Receive Date : ? 07/26/2005 Provider: ?AG WHITE DIRECTOR MATERNAL CHILD Copy to: ? Specimen/Source: ? ThinPrep Pap Test, Cervix/Endocervix, processed on [email or web address] ThinPrep Imaging System, with manual evaluation Last Menstrual Period: ? Other: ? Additional clinical information: Previous pap WNL HPVA - HPV testing requested if ASC-US on the current ThinPrep Pap test. ? SPECIMEN ADEQUACY ? Satisfactory for Evaluation - transformation zone component present GENERAL CATEGORIZATION ? Negative for Intraepithelial Lesion or Malignan cy ? Document reviewed and electronically signed by: ? BONI Kasper(ASCP) ? Report Date: ??08/02/2005 09:38 End of Report Specimen Performing Organization Address City/State/ZIP Code Phon e Number [facility] [address] [place] [address] SERVICES [facility] [address] [place] [address] documented in this encounter Visit Diagnoses Not on filedocumented in this encounter Care Teams Engineering Production Worker Relationship Specialty Start Date End Date Nash Fonseca MD PCP - General 04/10/09 12/19/[address] [place] [address] ,[address] [place] [address] documented as of this encounter
--- OUTSIDE RECORDS SUMMARY | 2022-05-07 00:21 | XMS_ITS | Encounter Summary ---
:1955 Author Organization [facility] Address [address] [place] [address] Care Team Providers Name Role Phone Agustin Fisher MD Primary Care Provider Encounter Details Date Type Department Care Team Description 07/06/2017 Results Only [facility]- PRISM Agustin Fisher MD [phone] [address] [place] [address] (Wo rk) Social History Tobacco Use Types Packs/Day Years Used Date Never Assessed Sex Assigned at Date Recorded Not on file documented as of this encounter Plan of Treatment Not on filedocumented as of this encounter Procedures Procedure Name Priority Date/Time Associated Diagnosis Comme nts PAP TEST- RESULT Routine 07/06/2017 0:00 EDT Resu lts for this ONLY procedure are i n the results section. documented in this encounter Results PAP TEST- RESULT ONLY (07/06/2017 0:00 EDT) Pathology Report: CYTOPATHOLOGY REPORT [facility] Reports generated via electronic interface contain rita ginal data; SERVICES however they are lacking the format of the original re port. Caution should be taken when reading/interpreting unfo rmatted reports. Name: ? OKREY JIMENEZ ? Accession #: ? [id number] ? : ? 1955 (Age: 61) ??F ?Collect Date: ? 07/06/2017 ? Location: ? [facility] ? Receive Date: ? 07/12/20 17 ? Provider: AGUSTIN FISHER MD Copy to: ? Final Report SPECIMEN ADEQUACY ? Satisfactory for Evaluation - assessment of transformation zone component not appl icable ( e.g. atrophy, vaginal sample, hysterectomy) - scant squamous epithelial component GENERAL CATEGORIZATION ? Negative for Intraepithelial Lesion or Malignan cy ?? Last Menstrual Period: 2009 Specimen/Source: ??Pap Test, Cervix, ThinPrep Imaging System with manual evaluation Document reviewed and electronically signed by: ? BONI Kasper(ASCP) ? Report ??Date: 07/21/2017 12:58 HPV with Pap Test ? Date Ordered: ? 07/21/2017 ? Status: ?? Signed Out ?Date Complete: ? 07/22/2017 ? By: ??S ystem Interface ? Date Reported: ? 07/22/2017 ? Interpretation RESULT: Negative for HPV. No E6 or E7 mRNA is detected from HPV types 16,18,31,3 3,35, 39,45,51,52,56,58,59,66, and 68 by coat repair inspector media sandee amplification. Comments Document reviewed and electronically signed by: ? System Interface ? Report date: 07/22/2017 By the signature above, the attending physician certif ies that he/she has personally conducted a gross and/or microscopic examin ation of the described specimens and rendered or confirmed the above diagnosi s. End of Report Specimen Performing Organization Address City/State/ZIP Code Phon e Number [facility] [address] [place], [place] [id number] SERVICES documented in this encounter Visit Diagnoses Not on filedocumented in this encounter Care Teams Vending Technician Relationship Specialty Start Date End Date Agustin Fisher MD PCP - General 12/20/[address] [place] [address] documented as of this encounter
--- OUTSIDE RECORDS SUMMARY | 2022-05-07 00:21 | XMS_ITS | Encounter Summary ---
:1955 Author Organization [facility] Address [address] [place] [address] Care Team Providers Name Role Phone Agustin Fisher MD Primary Care Provider Encounter Details Date Type Department Care Team Description 09/07/2016 Results Only [facility]- Sadaf Francisco, [address] [place] [address] [place] [address] (Wo rk) Social History Tobacco Use Types Packs/Day Years Used Date Never Assessed Sex Assigned at Date Recorded Not on file documented as of this encounter Plan of Treatment Not on filedocumented as of this encounter Procedures Procedure Name Priority Date/Time Associated Diagnosis Comme [facility] SURGICAL PATHOLOGY Routine 09/07/2016 9:18 EST Re sults for this procedure are i n the results section. documented in this encounter Results SURGICAL PATHOLOGY (09/07/2016 9:18 EST) Pathology Report: SURGICAL PATHOLOGY REPORT [facility] Reports generated via electronic interface contain rita ginal data; LABORATORY however they are lacking the format of the original re port. SERVICES Caution should be taken when reading/interpreting unfo rmatted reports. Name: ? KOREY JIMENEZ ? Accession #: ? [id number] ? : ? 1955 (Age: 60) ??F ? Collect Date: ? 09/07/2016 ? Location: ? [facility] ? Receive Date: ? 016 ? Provider: SADAF LOYA MD Copy to: AGUSTIN FISHER MD ? Final Pathologic Diagnosis: GALLBLADDER, CHOLECYSTECTOMY: - Gallbladder with no specific pathologic features. Document reviewed and electronically signed by: NEERAJ HARP MD Report ??Date: 09/13/2016 16:22 By the signature above, the attending physician certif ies that he/she has personally conducted a gross and/or microscopic examin ation of the described specimens and rendered or confirmed the above diagnosi s. Specimen(s) Received: Gallbladder Clinical History: Biliary dyskinesis Gross Description: ? Received in formalin labelled with proper patient identification (initials H, C) and gallbladder is an intact gallbladder (6.5 x 3.2 x 2.5 cm) with an attached segment of cystic duct (0.3 cm in length x 0. 2 cm in diameter). ? The serosa is purple to bile stained green, smo oth, and dull. The gallbladder mucosa is bile s tained green, soft, and velvety. The wall thickness is 0.2 cm throughout. No gallstones are identified. The cystic duct is patent. The cystic duct margin is inked blue. ? Two senior sales representative se ctions and the inked en face cystic duct margin are submitted in 1. JILLIAN Najera (ASCP) 09/08/2016 11:08 AM End of Report Specimen Performing Organization Address City/State/ZIP Code Phon e Number [facility] [address] [place] [address] SERVICES documented in this encounter Visit Diagnoses Not on filedocumented in this encounter Care Teams Tobacco Drying Machine Operator Relationship Specialty Start Date End Date Agustin Fisher MD PCP - General 12/20/11 [address] [facility] [place] [place] [id number] documented as of this encounter
--- OUTSIDE RECORDS SUMMARY | 2022-05-07 00:21 | XMS_ITS | Encounter Summary ---
:1955 Author Organization [facility] Address [address] [place] [address] Care Team Providers Name Role Phone Unavailable Primary Care Provider Unavailable Encounter Details Date Type Department Care Team Description 04/08/2009 Orders Only [facility] Rahel Santiago MD Laboratory Services - [address] [place] [address] [address] [place] [address] Social History Tobacco Use Types Packs/Day Years Used Date Never Assessed Sex Assigned at Date Recorded Not on file documented as of this encounter Plan of Treatment Not on filedocumented as of this encounter Procedures Procedure Name Priority Date/Time Associated Diagnosis Comme nts SURGICAL PATHOLOGY Routine 04/08/2009 0:00 EDT Re sults for this procedure are i n the results section. documented in this encounter Results SURGICAL PATHOLOGY (04/08/2009 0:00 EDT) Pathology Report: SURGICAL PATHOLOGY REPORT ? [facility] Reports generated via [employer] interface contain original data; ? LAB however they are lacking the format of the original report. ? Caution should be taken when reading/interpreting unformatted reports. ? Name: ? KOREY JIMENEZ ? Accession #: ? [id number] ? : ? 1955 (Age: 53) ??F ? Collec t Date: ? 04/08/2009 ? Location: ? [facility] ? R eceive Date: ? 04/09/2009 ? Provider: RAHEL ABHAY MD ? Copy to: MARLON JOYCE BONSAI TENDER ? Final Pathologic Diagnosis: ? Endometrium, biopsy: ? 1. ?Inactive/we akly proliferative endometrium with tubal metaplasia. ? 2. ? Benign fragments of endo- and ectocervical mucosa. ? Document reviewed and electr onically signed by: ? Rick Song MD ? Report ??Date: 04/15/2009 15 :48 ? By the signature above, the attending physician certifies that he/she has ? personally conducted a gross and/or microscopic examination of the described ? specimens and rendered or co nfirmed the above diagnosis. ? Specimen(s) Received: ? Endometrial bx ? Clinical History: ? Abnormal vaginal blee ding, S/P tubal ligation; LMP: 02/22/09 ? Gross Description: ? Received in formalin labelled Hannux, Korey and endometrial bx is a ?? 0.8 x 0.6 x 0.3 cm aggregate of multiple sanchez-brown soft tissue fragments. ??The ?? specimen is entirely submitt ed in one cassette following filtration. ??(A. ? Sorto)/tmg ? End of Report ? Specimen Performing Organization Address City/State/ZIP Code Phon e Number [facility] [address] [place] [address] SERVICES [facility] [address] [place] [address] documented in this encounter Visit Diagnoses Not on filedocumented in this encounter
--- OUTSIDE RECORDS SUMMARY | 2022-05-07 00:21 | XMS_ITS | Encounter Summary ---
:1955 Author Organization [facility] Address [address] [place] [address] Care Team Providers Name Role Phone Unavailable Primary Care Provider Unavailable Encounter Details Date Type Department Care Team Description 09/19/2008 Before PRISM [facility] - Tabitha Noland, Converted Visit Maple conversion ARTICULATION OFFICER (Maple) [address] [facility] [address] [place] [address] [place], [place] [phone] (Wo rk) Social History Tobacco Use Types Packs/Day Years Used Date Never Assessed Sex Assigned at Date Recorded Not on file documented as of this encounter Plan of Treatment Not on filedocumented as of this encounter Procedures Procedure Name Priority Date/Time Associated Diagnosis Comme [facility] CYTOPATHOLOGY Routine 09/19/2008 0:00 EST Results for this procedure are i n the results section . documented in this encounter Results CYTOPATHOLOGY (09/19/2008 0:00 EST) Pathology Report: CYTOPATHOLOGY REPORT ? [facility] ? LAB Reports generated via Agillic interface contain original data; ? however they are lacking the format of the original report. ? Caution should be taken when reading/interpreting unformatted reports. ? Name: ? YOANNATALIE, KOREY ? Accession #: ? [id number] ? : ? 1955 (Age: 52) ??F ?Collect Date: ? 09/19/2008 ? Location: ? [facility] ? Receive Date: ? 09/20/2008 ? Provider: ?TABITHA RAMIREZ OOD ARTICULATION OFFICER ? Copy to: ? Specimen/Source: ? Pap Test, Vagina/Cervix/Endocervix, ThinPrep Imaging ? System with manual evaluatio n ? Last Menstrual Period: ? 7/1/07 ? Other: ? HPVA - HPV testing requested if ASC-US on the current ThinPrep Pap test. ? SPECIMEN ADEQUACY ? Satisfactory for Eval uation ? - transformation zone compon ent present ? GENERAL CATEGORIZATION ? Other, see interpreta tion ? INTERPRETATION ? Endometrial cells pre sent in a woman equal to or greater than age 40. ? Negative for Intraepithelial Lesion. ? EDUCATIONAL NOTES/RECOMMENDA TIONS ? Benign appearing endo metrial cells on Pap tests are usually a normal ? finding in women with regula r menstrual cycles, especially if the Pap test was ?? collected during the first h [facility] of the menstrual cycle. ? There is data showing that e ndometrial cells on Pap tests may be associated with endometrial/uterine abnormal ities in post menopausal women or in perimenopausal women with abnormal bleeding . ? There is limited data on the significance of benign endometrial cells in post ?? menopausal women on HRT. ??C linical correlation is recommended. ? Note: ??The Pap test is not an accurate test for the screening of endometrial ? lesions and should not be us ed as a follow up in patients with clinical ? suspicion of endometrial pat hology. ? Document reviewed and electr onically signed by: ? JOE D PLOTZ MD ? Report Date: ??12/19/ 2008 16:24 ? End of Report ? Specimen Performing Organization Address City/State/ZIP Code Phon e Number [facility] [address] [place] [address] SERVICES [facility] [address] [place] [address] documented in this encounter Visit Diagnoses Not on filedocumented in this encounter
--- OUTSIDE RECORDS SUMMARY | 2022-05-07 00:21 | XMS_ITS | Encounter Summary ---
:1955 Author Organization [facility] Address [address] [place] [address] Care Team Providers Name Role Phone Agustin Fisher MD Primary Care Provider Encounter Details Date Type Department Care Team Description 08/08/2014 Results Only [facility] Evangelista Noland, FUNERAL HOME LOCATION MANAGER Laboratory Services - [address] [place], [place] [address] [facility] [address] [place] [address] [phone] Social History Tobacco Use Types Packs/Day Years Used Date Never Assessed Sex Assigned at Date Recorded Not on file documented as of this encounter Plan of Treatment Not on filedocumented as of this encounter Procedures Procedure Name Priority Date/Time Associated Diagnosis Comme nts PAP TEST- RESULT Routine 08/08/2014 0:00 EDT Resu lts for this ONLY procedure are i n the results section. documented in this encounter Results PAP TEST- RESULT ONLY (08/08/2014 0:00 EDT) Pathology Report: CYTOPATHOLOGY REPORT [facility] Reports generated via electronic interface contain rita ginal data; SERVICES however they are lacking the format of the original re port. Caution should be taken when reading/interpreting unfo rmatted reports. Name: ? KOREY JIMENEZ ? Accession #: ? [id number] : ? 1955 (Age: 58) ??F ?Collect Date: ? 07/12 Location: ? [facility] ? Receive Date : ? 08/09/2014 Provider: ?MARLON JOYCE FUNERAL HOME LOCATION MANAGER Copy to: ?AGUSTIN FISHER MD ? Specimen/Source: ? Pap Test, Cervix/Endocervix, ThinPrep Imaging System with manual evaluation Last Menstrual Period: ? 2004 Previous Gynecologic Pathology: ? KINA II: 2009 ? SPECIMEN ADEQUACY ? Satisfactory for Evaluation - assessment of transformation zone component not appl icable ( e.g. atrophy, vaginal sample, hysterectomy) - scant squamous epithelial component - obscuring contamination, possibly lubricant GENERAL CATEGORIZATION ? Negative for Intraepithelial Lesion or Malignan cy ? Document reviewed and electronically signed by: ? BONI Kasper(ASCP) ? Report Date: ??08/15/2014 12:15 End of Report Specimen Performing Organization Address City/State/ZIP Code Phon e Number [facility] [address] [place] [address] SERVICES documented in this encounter Visit Diagnoses Not on filedocumented in this encounter Care Teams Whitewasher Relationship Specialty Start Date End Date Agustin Fisher MD PCP - General 12/20/11 [address] [place] [address] documented as of this encounter
--- OUTSIDE RECORDS SUMMARY | 2022-05-07 00:21 | XMS_ITS | Encounter Summary ---
:1955 Author Organization [facility] Address [address] [facility] [place] [address] Care Team Providers Name Role Phone Nash oFnseca MD Primary Care Provider Encounter Details Date Type Department Care Team Description 02/05/2010 Results Only [facility]- PRISM Robbie Carlson MD [phone] [place] [address] Social History Tobacco Use Types Packs/Day Years Used Date Never Assessed Sex Assigned at Date Recorded Not on file documented as of this encounter Plan of Treatment Not on filedocumented as of this encounter Procedures Procedure Name Priority Date/Time Associated Diagnosis Comme nts SURGICAL PATHOLOGY Routine 02/05/2010 0:00 EDT Re sults for this procedure are i n the results section. documented in this encounter Results SURGICAL PATHOLOGY (02/05/2010 0:00 EDT) Pathology Report: SURGICAL PATHOLOGY REPORT ? [facility] Reports generated via Principle Power interface contain original data; ? LAB however they are lacking the format of the original report. ? Caution should be taken when reading/interpreting unformatted reports. ? Name: ? KOREY JIMENEZ ? Accession #: ? [id number] ? : ? 1955 (Age: 54) ??F ? Collec t Date: ? 02/05/2010 ? Location: ? [facility] ? R eceive Date: ? 02/06/2010 ? Provider: ROBBIE S MARTHA MD ? Copy to: AGUSTIN E KAMARI MD ? Final Pathologic Diagnosis: ? A. ?Ectocervix, 11 o'clock, biopsies: ? 1. ?Transformat ion zone mucosa with chronic, focal acute inflammation, ?? parakeratosis, and squamous metaplasia. ? 2. ? Negative for dyspla lola. ? B. ?Endocervix, curettage: ? 1. ?Detached fr agments of high-grade squamous intraepithelial lesion ? with coexisting reactive fea tures. ??See comment. ? Comment: ? Deeper levels of tiss ue from specimen (B) were reviewed. Dr. 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 ??(Dr. Song) ? Document reviewed and electr onically signed by: ? Rick Song MD ? Report ??Date: 02/14/2010 15 :33 ? By the signature above, the attending physician certifies that he/she has ? personally conducted a gross and/or microscopic examination of the described ? specimens and rendered or co nfirmed the above diagnosis. ? Specimen(s) Received: ? A. ?Ectocervix 11 o'clock ? B. ? Endocervix ? Clinical History: ? 01/810 ASC-US, (+)HP V ? Gross Description: ? Received in formalin labelled Hannux, Mercedes and ectocervix 11 o'clock are two sanchez-white tissue fra gments measuring 0.3 x 0.2 x 0.2 cm and 0.4 x 0.2 x 0.2 cm. ??The specimens are submitted entirely as (A). ? Received in formalin charlene d Ebivy, Mercedes and ECC is a 1.0 x 1.0 x 0.5 ?? cm aggregate of clear to whi te, mucinous material. ??The specimen is submitted ?? entirely as (B) following fi ltration. ??(Julien Sorto)/[facility] ? End of Report ? Specimen Performing Organization Address City/State/ZIP Code Phon e Number [facility] [address] [place] [address] SERVICES [facility] [address] [place] [address] documented in this encounter Visit Diagnoses Not on filedocumented in this encounter Care Teams Quantometer Operator Relationship Specialty Start Date End Date Nash Fonseca MD PCP - General 04/10/[address] [place] [address] ,[address] [place] [address] documented as of this encounter
--- OUTSIDE RECORDS SUMMARY | 2022-05-07 00:21 | XMS_ITS | Encounter Summary ---
:1955 Author Organization [facility] Address [address] [place] [address] Care Team Providers Name Role Phone Nash Fonseca MD Primary Care Provider Encounter Details Date Type Department Care Team Description 12/17/2011 Results Only [facility]- Benjamin Olivares DO [phone] [facility] [facility] [address] [address] [place], [place] [address] (Wo rk) Social History Tobacco Use Types Packs/Day Years Used Date Never Assessed Sex Assigned at Date Recorded Not on file documented as of this encounter Plan of Treatment Not on filedocumented as of this encounter Procedures Procedure Name Priority Date/Time Associated Diagnosis Comme nts SURGICAL PATHOLOGY Routine 12/17/2011 0:00 EST Re sults for this procedure are i n the results section. documented in this encounter Results SURGICAL PATHOLOGY (12/17/2011 0:00 EST) Pathology SURGICAL PATHOLOGY REPORT [facility] Report: Reports generated via electronic interface contain rita ginal data; LAB however they are lacking the format of the original re port. Caution should be taken when reading/interpreting unfo rmatted reports. Name: ? KOREY JIMENEZ ? Accession #: ? [id number] ? : ? 1955 (Age: 56) ??F ? Collect Date: ? 12/17/2011 ? Location: ? [facility] ? Receive Date: ? 012 ? Provider: BENJAMIN DUNCAN DO Copy to: AGUSTIN BENITES MD ? Final Pathologic Diagnosis: ? Stomach, antrum, biopsy: 1. ?Mild chronic gastritis. 2. ? Immunostaining for Helicobacter pylori is negative. ??See comment. ?? Comment: ? Immunohistochemical staining was performed on t his case to further characterize the lesion. ??P ositive and negative controls stained appropriately. (Dr. Dai)/tmg Antibody (Clone) ? R esult ? H. pylori (polyclonal, [facility]) ? Negative ? NOTE: ??One or more of the reagents used in immunohistochemical testing in this case may not have been cleared or approved by the U.S. Food and Drug Administration (FDA). ??The FDA has determined that such clearance or approval is not necessary. ??These tests are used for clinical purposes. ??They should not be regarded as investigational or for research. ??These r eagents' ??performance characteristics have been determined by [facility]. ??This laboratory is certified unde r the Clinical Laboratory Improvement Amendments of 1988 (CLIA-88) as qualified to perform high complexity clinical laboratory testing. ?? Document reviewed and electronically signed by: [facility] Report ??Date: 12/21/2011 15:50 By the signature above, the attending physician certif ies that he/she has personally conducted a gross and/or microscopic examin ation of the described specimens and rendered or confirmed the above diagnosi s. Specimen(s) Received: ? Bx gastric antrum Clinical History: ? Dysphagia, epigastric pain, weight loss Gross Description: ? Received in formalin labelled Hannux, Korey and biopsy gastric antrum are several fragments of whi te-sanchez soft tissue which measure 0.7 x 0.4 x 0.2 cm in aggregate submitted entirely in one cassette. (Dr. Dai)/mpl End of Report Specimen Performing Organization Address City/State/ZIP Code Phon e Number [facility] [address] [place] [address] SERVICES [facility] [address] [place] [address] documented in this encounter Visit Diagnoses Not on filedocumented in this encounter Care Teams Electronics System Mechanic Relationship Specialty Start Date End Date Nash Fonseca MD PCP - General 04/10/[address] [place] [address] ,[address] [place] [address] documented as of this encounter
--- OUTSIDE RECORDS SUMMARY | 2022-05-07 00:21 | XMS_ITS | Encounter Summary ---
:1955 Author Organization [facility] Address [address] [place] [address] Care Team Providers Name Role Phone Rena Fisher MD Primary Care Provider Encounter Details Date Type Department Care Team Description 09/04/2019 Lab Requisition [facility] Brie Keane for other Pathology & MD Peña general examination Laboratory Medicine [address] [place], [place] 111 [facility] [address] [place], [place] [id number] Social History Tobacco Use Types Packs/Day Years Used Date Never Assessed Sex Assigned at Date Recorded Not on file documented as of this encounter Plan of Treatment Not on filedocumented as of this encounter Procedures Procedure Name Priority Date/Time Associated Diagnosis Comme nts SURGICAL PATHOLOGY Today 09/04/2019 8:45 EST Encounter for o ther Results for this general examination procedur e are in the results section. documented in this encounter Results SURGICAL PATHOLOGY (09/04/2019 8:45 EST) Final Diagnosis A. RECTUM, POLYP, BIOPSY: [facility] MEDICAL Electronically - Fragments of tubular adenoma. CENTER signed by CHEYENNE Leblanc MD on SERVICES 09/07/2019 at 1 223 Clinical History Screening [facility] LABORATORY SERVICES Attestation By the signature [facility] MEDICAL Electronica lly below, the attending CENTER signed by Benji physician certifies LABORATORY Ro Sorto MD on that they have SERVICES 09/07/2019 at 1223 personally conducted a gross and/or microscopic examination of the described specimens and rendered or confirmed the above diagnosis. Gross Description A. Received in formalin labe lled with proper patient identification (initials H, C) and rectal polyp is an aggregate of sanchez-pink tissue fragments (0.5 x 0.4 x 0.3 cm). Submitted in toto in A1. [facility] Holly Hancock 09/04/2019 16:49 LABORATO RY SERVICES Scanned Images [facility] LABORATORY SERVICES Specimen Tissue - Specimen from rectum (specimen) Performing Organization Address City/State/ZIP Code Phon e Number [facility]ORATORY [address] [place] [address] SERVICES documented in this encounter Visit Diagnoses Diagnosis Encounter for other general examination documented in this encounter Care Teams Earth Mover Relationship Specialty Start Date End Date Rena Fisher MD PCP - General 12/20/11 [address] [place], [place] [phone] documented as of this encounter
--- OUTSIDE RECORDS SUMMARY | 2022-05-07 00:21 | XMS_ITS | Encounter Summary ---
:1955 Author Organization [facility] Address [address] [place] [address] Care Team Providers Name Role Phone Nash Fonseca MD Primary Care Provider Encounter Details Date Type Department Care Team Description 12/14/2011 Results Only [facility]- PRISM Robbie Carlson MD [phone] [place] [address] Social History Tobacco Use Types Packs/Day Years Used Date Never Assessed Sex Assigned at Date Recorded Not on file documented as of this encounter Plan of Treatment Not on filedocumented as of this encounter Procedures Procedure Name Priority Date/Time Associated Diagnosis Comme nts PAP TEST- RESULT Routine 12/14/2011 0:00 EST Resu lts for this ONLY procedure are i n the results section. documented in this encounter Results PAP TEST- RESULT ONLY (12/14/2011 0:00 EST) Pathology Report: CYTOPATHOLOGY REPORT [facility] Reports generated via electronic interface contain rita ginal data; however they are lacking the format of the original re port. Caution should be taken when reading/interpreting unfo rmatted reports. Name: ? KOREY JIMENEZ ? Accession #: ? [id number] ? : ? 1955 (Age: 56) ??F ?Collect Da te: ? 12/14/2011 ? Location: ? [facility] ? Receive Date: ? 012 ? Provider: ROBBIE CARLSON MD Copy to: AGUSTIN BENITES MD ? Final Report SPECIMEN ADEQUACY ? Satisfactory for Evaluation - transformation zone component present GENERAL CATEGORIZATION ? Negative for Intraepithelial Lesion or Malignan cy ?? Previous Gynecologic Pathology: ASC-US: 01/17 HPV: + 01/17 KINA II: 02/16 Treatment History: LEEP: 02/16 Other: Additional clinical information: 11/03/10, 07/05/11 and 07/09/11 negative pap, 07/09/10 -HPV Specimen/Source: ??Pap Test, Cervix/Endocervix, ThinPr ep Imaging System with manual evaluation Document reviewed and electronically signed by: ? Tyler Alegria, [place](ASCP) ? Report ??Date: 12/17/2011 14:54 HPV with Pap Test ? Date Ordered: ? 12/17/2011 ? Status: ?? Signed Out ?Date Complete: ? 12/22/2011 ? By: ??S ystem Interface ? Date Reported: ? 12/22/2011 ? Interpretation RESULT: Negative for HPV types 16, 18, 31, 33, 35, 39, 45, 51, 52, 56, 58, 59, and 68. Comments Document reviewed and electronically signed by: ? System Interface ? Report date: 12/22/2011 By the signature above, the attending physician certif ies that he/she has personally conducted a gross and/or microscopic examin ation of the described specimens and rendered or confirmed the above diagnosi s. End of Report Specimen Performing Organization Address City/State/ZIP Code Phon e Number [facility] [address] [place] [address] SERVICES [facility] [address] [place] [address] documented in this encounter Visit Diagnoses Not on filedocumented in this encounter Care Teams Oem Sales Manager Relationship Specialty Start Date End Date Nash Fonseca MD PCP - General 04/10/09 12/19/[address] [place] [address] ,[address] [place] [phone] documented as of this encounter
--- OUTSIDE RECORDS SUMMARY | 2022-05-07 00:21 | XMS_ITS | Encounter Summary ---
:1955 Author Organization [facility] Address [address] [place] [address] Care Team Providers Name Role Phone Nash Fonseca MD Primary Care Provider Encounter Details Date Type Department Care Team Description 02/23/2010 Results Only [facility]- PRISM Osiris Carlson MD [phone] [place] [address] Social History Tobacco Use Types Packs/Day Years Used Date Never Assessed Sex Assigned at Date Recorded Not on file documented as of this encounter Plan of Treatment Not on filedocumented as of this encounter Procedures Procedure Name Priority Date/Time Associated Diagnosis Comme nts SURGICAL PATHOLOGY Routine 02/23/2010 0:00 EDT Re sults for this procedure are i n the results section. documented in this encounter Results SURGICAL PATHOLOGY (02/23/2010 0:00 EDT) Pathology Report: SURGICAL PATHOLOGY REPORT ? [facility] Reports generated via Brickstream interface contain original data; ? LAB however they are lacking the format of the original report. ? Caution should be taken when reading/interpreting unformatted reports. ? Name: ? KOREY JIMENEZ ? Accession #: ? [id number] ? : ? 1955 (Age: 54) ??F ? Collec t Date: ? 02/23/2010 ? Location: ? [facility] ? R eceive Date: ? 02/23/2010 ? Provider: OSIRIS S MARTHA MD ? Copy to: AGUSTIN E KAMARI MD ? Final Pathologic Diagnosis: ? A. ?Cervix, KAMARI P excision: ? 1. 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 ? 2. ? Margins of excision negative for dysplasia. ? B. ?Cervix, to p hat, LEEP excision: ? 1. ?Benign julio sformation zone mucosa with chronic inflammation and ? reactive changes. ? 2. ? Negative for dyspla lola. ? Document reviewed and electr onically signed by: ? Rick Song, ? Report ??Date: 02/27/2010 14 :37 ? By the signature above, the attending physician certifies that he/she has ? personally conducted a gross and/or microscopic examination of the described ? specimens and rendered or co nfirmed the above diagnosis. ? Specimen(s) Received: ? LEEP ? A. ?Ectocervix ??marked at 6 o'clock with suture ? B. ? Top hat ? Clinical History: ? ASC-US (+) HPV Pap; ( +) colpo 4/29/10, KINA II-III on ECC ? Gross Description: ? Received in formalin labelled Hannux, Mercedes and ectocervix ??marked ? with suture at 6 o'clock is a 1.7 x 1.7 cm circular portion of cervix, excised to a depth of 0.6 cm and rita ented with a suture at 6 o'clock as per the ? requisition. ??On one aspect , the cervix has sanchez purple, slightly nodular ? ectocervical mucosa. ??There is a central 0.8 cm probe patent slit-like os. ??The ectocervical margins are ink ed black and the endocervical margins are inked ? blue. ??The specimen is sect ioned in a clockwise fashion and entirely submitted ?? as follows: ? BLOCK HALE ? A1, A2 ?12 o'cl ock ??3 o'clock ? A3, A4 ?3 o'sourav ck ??6 o'clock ? A5, A6 ?6 o'sourav ck ??9 o'clock ? A7, A8 ?9 o'sourav ck ??12 o'clock ? Received in formalin charlene d Thomasux, Mercedes and top hat are two irregular and unoriented pieces of tis jillian, 0.8 x 0.5 x 0.1 cm and 2.0 x 1.0 x 0.7 cm. ??The larger piece of tissue is co nvex on one aspect and concave on the opposite ? aspect, and along one edge h as an indentation surfaced by pink, slightly nodular and likely represents the os . ??The concave aspect of this tissue is inked black and the convex aspect is ink ed blue, and this tissue is sectioned. ??The smaller piece of tissue has a sanchez ca uterized outer surface with no evidence of mucosa. ?? The margins of this tissue a re entirely inked black and the tissue is bisected. The larger piece of tissue i s entirely submitted in (B1) ??(B5) and the smaller ?? piece of tissue is submitted in (B6). ??(Aylin Michaels)/[facility] ? End of Report ? Specimen Performing Organization Address City/[facility]/ZIP Code Phon e Number [facility] [address] [place] [address] SERVICES [facility] [address] [place] [address] documented in this encounter Visit Diagnoses Not on filedocumented in this encounter Care Teams Fast Food Attendant Relationship Specialty Start Date End Date Nash Fonseca MD PCP - General 04/10/09 [address] [facility] ,[address] [place] [address] documented as of this encounter
--- OUTSIDE RECORDS SUMMARY | 2022-05-07 00:21 | XMS_ITS | Encounter Summary ---
:[address] [facility] Address [address] [place] [address] Care Team Providers Name Role Phone Nash Fonseca MD Primary Care Provider Encounter Details Date Type Department Care Team Description 01/15/2010 Results Only [facility] Evangelista Noland, CONTRACT ASSISTANT Laboratory Services - [address] [facility] [address] [place], [place] [address] [place] [address] [place] [address] [phone] Social History Tobacco Use Types Packs/Day Years Used Date Never Assessed Sex Assigned at Date Recorded Not on file documented as of this encounter Plan of Treatment Not on filedocumented as of this encounter Procedures Procedure Name Priority Date/Time Associated Comments Diagnosis HPV DETECTION, HIGH Routine 01/15/2010 14:02 Resu lts for this RISK TYPES EDT procedure are i n the results section. CYTOPATHOLOGY Routine 01/15/2010 0:00 Results for this EDT procedure are i n the results section. documented in this encounter Results HUMAN PAPILLOMA VIRUS DNA TEST (01/15/2010 14:02 EDT) Specimen Description Cervix, ThinPrep [facility] Result Positive for one or more of HPV types 16,18,31,33,35,39,45,51,52,56,58,59, or 68. These [facility] high/intermediate risk HPV t ypes are associated with dysplasia and some cervical cancers. LAB Report Status Final [facility] 01/28/2010 LAB Specimen Performing Organization Address City/State/ZIP Code Phon e Number [facility] [address] [place] [address] SERVICES [facility] [address] [address] CYTOPATHOLOGY (01/15/2010 0:00 EDT) Pathology Report: CYTOPATHOLOGY REPORT ? [facility] ? LAB Reports generated via electr onic interface contain original data; ? however they are lacking the format of the original report. ? Caution should be taken when reading/interpreting unformatted reports. ? Name: ? KOREY JIMENEZ ? Accession #: ? [id number] ? : ? 1955 (Age: 54) ??F ?Collect Date: ? 01/15/2010 ? Location: ? [facility] ? Receive Date: ? 01/16/2010 ? Provider: ?MARLON HAYG OOD CONTRACT ASSISTANT ? Copy to: ? Specimen/Source: ? Pap Test, Cervix/Endocervix, ThinPrep Imaging System ? with manual evaluation ? Last Menstrual Period: ? 05/09 ? Other: ? HPVA - HPV testing requested if ASC-US on the current ThinPrep Pap test. ? SPECIMEN ADEQUACY ? Satisfactory for Eval uation ? - transformation zone compon ent present ? GENERAL CATEGORIZATION ? Epithelial Cell Abnor mality ? INTERPRETATION ? Squamous Cell Abnorma lity - Atypical squamous cells, undetermined ? significance (ASC-US). ? EDUCATIONAL NOTES/RECOMMENDA TIONS ? [facility] recommends follo wing the 2005 Consensus Guidelines for the Management of Women with Abnormal Cervi norm Cancer Screening Tests (JLGTD, ? 2007;11(4):201-222). ??Conse nsus guidelines are available online at ? www.ASCCP.org. ? Document reviewed and electr onically signed by: ? JOE D PLOTZ MD ? Report Date: ??04/19/ 2010 10:45 ? End of Report ? Specimen Performing Organization Address City/State/ZIP Code Phon e Number [facility] [address] [place] [address] SERVICES [facility] [address] [place] [address] documented in this encounter Visit Diagnoses Not on filedocumented in this encounter Care Teams Actuarial Director Relationship Specialty Start Date End Date Nash Fonseca MD PCP - General 04/10/09 12/19/[address] [place] [address] ,[address] [place] [address] documented as of this encounter
--- OUTSIDE RECORDS SUMMARY | 2022-05-07 00:21 | XMS_ITS | Encounter Summary ---
:1955 Author Organization [facility] Address [address] [place] [address] Care Team Providers Name Role Phone Nash Fonseca MD Primary Care Provider Encounter Details Date Type Department Care Team Description 11/03/2010 Results Only [facility]- PRISM Robbie Carlson MD [phone] [place] [address] Social History Tobacco Use Types Packs/Day Years Used Date Never Assessed Sex Assigned at Date Recorded Not on file documented as of this encounter Plan of Treatment Not on filedocumented as of this encounter Procedures Procedure Name Priority Date/Time Associated Diagnosis Comme nts CYTOPATHOLOGY Routine 11/03/2010 0:00 EST Results for this procedure are i n the results section . documented in this encounter Results CYTOPATHOLOGY (11/03/2010 0:00 EST) Pathology Report: CYTOPATHOLOGY REPORT ? [facility] ? LAB Reports generated via electr [email or web address] interface contain original data; ? however they are lacking the format of the original report. ? Caution should be taken when reading/interpreting unformatted reports. ? Name: ? KOREY JIMENEZ ? Accession #: ? [id number] ? : ? 1955 (Age: 55) ??F ?Collect Date: ? 11/03/2010 ? Location: ? [facility] ? Receive Date: ? 11/04/2010 ? Provider: ?ROBBIE S KE NNY MD ? Copy to: ? Specimen/Source: ? Pap Test, Cervix/Endocervix, ThinPrep Imaging System ? with manual evaluation ? Last Menstrual Period: ? Previous Gynecologic Patholo gy: ? ASC-US: 04/08/10 ? HPV: + 04/08/10 ? KINA II: 04/30/10 & 05/17/10 ? Treatment History: ? Colposcopy: KINA II 04/30/10 ? LEEP: KINA II 05/17/10 ? Other: ? Additional clinical informat ion: 09/30/10 pap neg and negative HPV ? SPECIMEN ADEQUACY ? Satisfactory for Eval uation ? - transformation zone compon ent present ? GENERAL CATEGORIZATION ? Negative for Intraepi thelial Lesion or Malignancy ? Document reviewed and electr onically signed by: ? Daniella [place], CT( CP) ? Report Date: ??01/31/ 2011 12:56 ? End of Report ? Specimen Performing Organization Address City/State/ZIP Code Phon e Number [facility] [address] [place] [address] SERVICES [facility] [address] [place] [address] documented in this encounter Visit Diagnoses Not on filedocumented in this encounter Care Teams [employer] Relationship Specialty Start Date End Date Nash Fonseca MD PCP - General 04/10/[address] [place] [address] ,[address] [place] [address] documented as of this encounter
--- OUTSIDE RECORDS SUMMARY | 2022-05-07 00:21 | XMS_ITS | Encounter Summary ---
:1955 Author Organization [facility] Address [address] [place] [address] Care Team Providers Name Role Phone Agustin Fisher MD Primary Care Provider Encounter Details Date Type Department Care Team Description 09/15/2012 Results Only [facility] David Altman, Laboratory Services - [address] [place] [address] [address] [facility] [place] [address] [phone] Social History Tobacco Use Types Packs/Day Years Used Date Never Assessed Sex Assigned at Date Recorded Not on file documented as of this encounter Plan of Treatment Not on filedocumented as of this encounter Procedures Procedure Name Priority Date/Time Associated Diagnosis Comme [facility] SURGICAL PATHOLOGY Routine 09/15/2012 0:00 EST Re sults for this procedure are i n the results section. documented in this encounter Results SURGICAL PATHOLOGY (09/15/2012 0:00 EST) Pathologist [facility] Pathology SURGICAL PATHOLOGY REPORT [facility] Report: Reports generated via electronic interface contain rita ginal data; LAB however they are lacking the format of the original re port. Caution should be taken when reading/interpreting unfo rmatted reports. Name: ? KOREY JIMENEZ ? Accession #: ? [id number] ? : ? 1955 (Age: 56) ??F ? Collect Date: ? 09/15/2012 ? Location: ? [facility] ? Receive Date: ? 09/18/20 12 ? Provider: DAVID ALTMAN DO Copy to: AGUSTIN FISHER MD ? Final Pathologic Diagnosis: A. ?Small intestine, duodenum, 2nd portio n, biopsy: 1. ?Duodenal mucosa with mild patch y increase in intraepithelial lymphocytes. B. ?Stomach, antrum, biopsy: 1. ?Gastric antral mucosa with mild chron ic gastritis. ? 2. ?? Immunostaining for Helicobacter pylori is negative. See comment. ?? Comment: ? The duodenal biopsy shows a mild, patchy increa se in intraepithelial lymphocytes within the villous tips. ??This find ing is non-specific; however, serologic testing for celiac disease (TTG) may be help ful if clinically warranted. Microscopic Description: ? Immunohistochemical staining was performed on t his case to further characterize the lesion. ??P ositive and negative controls stained appropriately. (Dr. Casillas)/kmm Block ?Antibody (Clone) ? Result ? B ?H. py wade (polyclonal, Invested.in Vision) ?Negative. ? NOTE: ??One or more of the reagents used in immunohistochemical testing in this case may not have been cleared or approved by the U.S. Food and Drug Administration (FDA). ??The FDA has determined that such clearance or approval is not necessary. ??These tests are used for clinical purposes. ??They should not be regarded as investigational or for research. ??These r eagents' performance characteristics have been determined by [facility]. ??This laboratory is certified unde r the Clinical Laboratory Improvement Amendments of 1988 (CLIA-88) as qualified to perform high complexity clinical laboratory testing. ?? Document reviewed and electronically signed by: NEERAJ HARP MD Report ??Date: 09/22/2012 13:01 By the signature above, the attending physician certif ies that he/she has personally conducted a gross and/or microscopic examin ation of the described specimens and rendered or confirmed the above diagnosi s. Specimen(s) Received: A. ?2nd portion B. ? Antrum Clinical History: ? Abd pain; R/O sprue; clinical diagnosis code: ? ?578.1 Gross Description: ? Received in formalin labelled Corea Korey avelar and A-2nd portion are five light sanchez biopsies, eac h measuring approximately 0.3 x 0.2 x 0.2 cm. ??The specimens are submitted intact as (A1) and (A2). Received in formalin charlene d Korey Jimenez and B-antrum are two light sanchez biopsies measuring 0.2 x 0.1 x 0.1 cm and 0.5 x 0.2 x 0.1 cm. ??The specimens are submitted intact as (B). ??(Hellen Hwang/[facility] End of Report Specimen Performing Organization Address City/State/ZIP Code Phon e Number [facility] [address] [place] [address] SERVICES [facility] [address] [place] [address] documented in this encounter Visit Diagnoses Not on filedocumented in this encounter Care Teams Furnace Utility Operator Relationship Specialty Start Date End Date Agustin Fisher MD PCP - General 12/20/11 [address] [place], [place] [phone] documented as of this encounter
--- OUTSIDE RECORDS SUMMARY | 2022-05-07 00:21 | XMS_ITS | Encounter Summary ---
:1955 Author Organization [facility] Address [address] [place] [address] Care Team Providers Name Role Phone Rena Fisher MD Primary Care Provider Encounter Details Date Type Department Care Team Description 05/07/2013 Hospital Encounter [facility] - Yaneth Terry, [address] [place] [address] [place], [place] [phone] (Wo rk) Social History Tobacco Use Types Packs/Day Years Used Date Never Assessed Sex Assigned at Date Recorded Not on file documented as of this encounter Discharge Disposition Disposition Code Departure Means Destination Home or Self Care documented in this encounter Plan of Treatment Not on filedocumented as of this encounter Visit Diagnoses Not on filedocumented in this encounter Care Teams Seismic Prospecting Supervisor Relationship Specialty Start Date End Date Rena Fisher MD PCP - General 12/20/[facility] [address] [facility] [place] [address] documented as of this encounter
--- OUTSIDE RECORDS SUMMARY | 2022-05-07 00:21 | XMS_ITS | Encounter Summary ---
:1955 Author Organization [facility] Address [address] [place] [address] Care Team Providers Name Role Phone Agustin Fisher MD Primary Care Provider Encounter Details Date Type Department Care Team Description 05/07/2013 Results Only [facility] Evangelista Noland, [facility] Laboratory Services - [address] [place], [place] [address] [facility] [address] [place] [address] [phone] Social History Tobacco Use Types Packs/Day Years Used Date Never Assessed Sex Assigned at Date Recorded Not on file documented as of this encounter Plan of Treatment Not on filedocumented as of this encounter Procedures Procedure Name Priority Date/Time Associated Diagnosis Comme nts PAP TEST- RESULT Routine 05/07/2013 0:00 EDT Resu lts for this ONLY procedure are i n the results section. documented in this encounter Results PAP TEST- RESULT ONLY (05/07/2013 0:00 EDT) Pathology Report: CYTOPATHOLOGY REPORT [facility] Reports generated via electronic interface contain rita ginal data; however they are lacking the format of the original re port. Caution should be taken when reading/interpreting unfo rmatted reports. Name: ? KOREY JIMENEZ ? Accession #: ? [id number] : ? 1955 (Age: 57) ??F ?Collect Date: ? 04/10 Location: ? [facility] ? Receive Date : ? 05/08/2013 Provider: ?MARLON JOYCE PAVING RAMMER Copy to: ?AGUSTIN FISHER MD ? Specimen/Source: ? Pap Test, Cervix/Endocervix, ThinPrep Imaging System with manual evaluation Last Menstrual Period: ? 2004 Previous Gynecologic Pathology: ? KINA II: 2010 Treatment History: ? LEEP ? SPECIMEN ADEQUACY ? Satisfactory for Evaluation - transformation zone component present GENERAL CATEGORIZATION ? Negative for Intraepithelial Lesion or Malignan cy ? Document reviewed and electronically signed by: ? BONI Vieira(ASCP) ? Report Date: ??05/17/2013 10:27 End of Report Specimen Performing Organization Address City/State/ZIP Code Phon e Number [facility] [address] [place] [address] SERVICES [facility] [address] [place] [address] documented in this encounter Visit Diagnoses Not on filedocumented in this encounter Care Teams Neon Sign Maker Relationship Specialty Start Date End Date Agustin Fisher MD PCP - General 12/20/[address] [place] [place] [address] documented as of this encounter
--- OUTSIDE RECORDS SUMMARY | 2022-05-07 00:21 | XMS_ITS | Encounter Summary ---
:1955 Author Organization [facility] Address [address] [place] [address] Care Team Providers Name Role Phone Nash Fonseca MD Primary Care Provider Encounter Details Date Type Department Care Team Description 08/03/2006 Results Only [facility] - Donell King, conversion SAP SENIOR DEVELOPER 111 [facility] [address] [place] [address] [place] [address] (Wo rk) Social History Tobacco Use Types Packs/Day Years Used Date Never Assessed Sex Assigned at Date Recorded Not on file documented as of this encounter Plan of Treatment Not on filedocumented as of this encounter Procedures Procedure Name Priority Date/Time Associated Comments Diagnosis HPV DETECTION, HIGH Routine 08/03/2006 10:33 Resu lts for this RISK TYPES EDT procedure are i n the results section. CYTOPATHOLOGY Routine 08/03/2006 0:00 Results for this EDT procedure are i n the results section. documented in this encounter Results HUMAN PAPILLOMA VIRUS DNA TEST (08/03/2006 10:33 EDT) Specimen Description Cervix, ThinPrep [facility] vial Result Negative for HPV [facility] types 16, 18, 31, 33, 35, 39, 45, 51, 52, 56, 58, 59, and 68. Report Status Final [facility] [id number] Specimen Performing Organization Address City/State/ZIP Code Phon e Number [facility] [address] [place] [address] SERVICES [facility] [address] [place] [address] CYTOPATHOLOGY (08/03/2006 0:00 EDT) Pathology Report: CYTOPATHOLOGY REPORT [facility] Reports generated via electronic interface contain rita ginal data; however they are lacking the format of the original re port. Caution should be taken when reading/interpreting unfo rmatted reports. Name: ? KOREY JIMENEZ ? Accession #: ? [id number] : ? 1955 (Age: 50) ??F ?Collect Date: ? 07/11 Location: ? [facility] ? Receive Date : ? 08/05/2006 Provider: ?AG WHITE SAP SENIOR DEVELOPER Copy to: ? Specimen/Source: ? ThinPrep Pap Test, Cervix/Endocervix, processed on [employer] ThinPrep Imaging System, with manual evaluation Last Menstrual Period: ? Other: ? HPVDX - HPV testing requested regardless of diag nosis on current ThinPrep Pap test. Additional clinical information: previous paps WNL ? SPECIMEN ADEQUACY ? Satisfactory for Evaluation - transformation zone component present GENERAL CATEGORIZATION ? Epithelial Cell Abnormality INTERPRETATION ? Squamous Cell Abnormality - Atypical squamous c ells, undetermined significance. EDUCATIONAL NOTES/RECOMMENDATIONS ? [facility] recommends lindsey wing the 2001 Consensus Guidelines for the Management of Women with Cervical Cytological Abnormalities (JAM A,2002;287:2120-9). Management algorithms have b een distributed by [facility] and are available online at www.ASCCP.org. ? Document reviewed and electronically signed by: ? GOPI LEMA MD [facility] ? Report Date: ??08/13/2006 09:57 End of Report Specimen Performing Organization Address City/State/ZIP Code Phon e Number [facility] [address] [place] [address] SERVICES [facility] [address] [place] [address] documented in this encounter Visit Diagnoses Not on filedocumented in this encounter Care Teams Field Attendant Relationship Specialty Start Date End Date Nash Fonseca MD PCP - General 04/10/09 12/19/[address] [place] [address] ,[address] [place] [address] documented as of this encounter
--- OUTSIDE RECORDS SUMMARY | 2022-05-07 00:21 | XMS_ITS | Encounter Summary ---
:1955 Author Organization [facility] Address [address] [place] [address] Care Team Providers Name Role Phone Nash Fonseca MD Primary Care Provider Encounter Details Date Type Department Care Team Description 09/05/2007 Results Only [facility] - Donell King, conversion TITLE INVESTIGATOR 111 [facility] [address] [place], [place] [id number] [place] [address] (Wo rk) Social History Tobacco Use Types Packs/Day Years Used Date Never Assessed Sex Assigned at Date Recorded Not on file documented as of this encounter Plan of Treatment Not on filedocumented as of this encounter Procedures Procedure Name Priority Date/Time Associated Comments Diagnosis HPV DETECTION, HIGH Routine 09/05/2007 14:23 Resu lts for this RISK TYPES EST procedure are i n the results section. CYTOPATHOLOGY Routine 09/05/2007 0:00 Results for this EST procedure are i n the results section. documented in this encounter Results HUMAN PAPILLOMA VIRUS DNA TEST (09/05/2007 14:23 EST) Specimen Description Cervix, ThinPrep [facility] AB vial Result Negative for HPV [facility] types 16, 18, 31, 33, 35, 39, 45, 51, 52, 56, 58, 59, and 68. Report Status Final [facility] [id number] Specimen Performing Organization Address City/State/ZIP Code Phon e Number [facility] [address] [place] [address] SERVICES [facility] [address] [place] [address] CYTOPATHOLOGY (09/05/2007 0:00 EST) Pathologist [facility] Pathology Report: CYTOPATHOLOGY REPORT [facility] Reports generated via electronic interface contain rita ginal data; however they are lacking the format of the original re port. Caution should be taken when reading/interpreting unfo rmatted reports. Name: ? KOREY JIMENEZ ? Accession #: ? [id number] : ? 1955 (Age: 51) ??F ?Collect Date: ? 08/11 Location: ? [facility] ? Receive Date : ? 09/07/2007 Provider: ?AG WHITE TITLE INVESTIGATOR Copy to: ? Specimen/Source: ? ThinPrep Pap Test, Cervix/Endocervix, processed on [employer] ThinPrep Imaging System, with manual evaluation Last Menstrual Period: ? 06/01/07 Previous Gynecologic Pathology: ? ASC-US: with HR HPV (+) 07/15 Other: ? HPVDX - HPV testing requested regardless of diag nosis on current ThinPrep Pap test. ? SPECIMEN ADEQUACY ? Satisfactory for Evaluation - transformation zone component present GENERAL CATEGORIZATION ? Negative for Intraepithelial Lesion or Malignan cy ? Document reviewed and electronically signed by: ? BONI Quiñones(ASCP)([facility]) ? Report Date: ??09/12/2007 12:17 End of Report Specimen Performing Organization Address City/State/ZIP Code Phon e Number [facility] [address] [place] [address] SERVICES [facility] [address] [place] [address] documented in this encounter Visit Diagnoses Not on filedocumented in this encounter Care Teams Lens Molding Equipment Operator Relationship Specialty Start Date End Date Nash Fonseca MD PCP - General 04/10/09 12/19/[address] [place] [address] ,[address] [place] [address] documented as of this encounter
--- OUTSIDE RECORDS SUMMARY | 2022-05-07 00:21 | XMS_ITS | Encounter Summary ---
:1955 Author Organization [facility] Address [address] [place] [address] Care Team Providers Name Role Phone Nash Fonseca MD Primary Care Provider Encounter Details Date Type Department Care Team Description 07/09/2010 Results Only [facility]- PRISM Robbie Carlson MD [phone] [place] [address] Social History Tobacco Use Types Packs/Day Years Used Date Never Assessed Sex Assigned at Date Recorded Not on file documented as of this encounter Plan of Treatment Not on filedocumented as of this encounter Procedures Procedure Name Priority Date/Time Associated Diagnosis Comme nts CYTOPATHOLOGY Routine 07/09/2010 0:00 EDT Results for this procedure are i n the results section . documented in this encounter Results CYTOPATHOLOGY (07/09/2010 0:00 EDT) Pathology Report: CYTOPATHOLOGY REPORT ? [facility] ? LAB Reports generated via electr WinLoot.com interface contain original data; ? however they are lacking the format of the original report. ? Caution should be taken when reading/interpreting unformatted reports. ? Name: ? KOREY JIMENEZ ? Accession #: ? [id number] ? : ? 1955 (Age: 54) ??F ?Collect Date: ? 07/09/2010 ? Location: ? [facility] ? R eceive Date: ? 07/10/2010 ? Provider: ROBBIE CARLSON MD ? Copy to: ? Final Report ? SPECIMEN ADEQUACY ? Satisfactory for Eval uation ? - transformation zone compon ent present ? GENERAL CATEGORIZATION ? Negative for Intraepi thelial Lesion or Malignancy ? Previous Gynecologic Patholo gy: ASC-US: 01/15/2010 ? HPV: + ? KINA II: 02/06/2010, 02/23/2010 ? Treatment History: Colposcop y: 02/06/2010 ? LEEP: 02/23/2010 ? Other: HPVDX - HPV testing r equested regardless of diagnosis on current ThinPrep Pap test. ? Specimen/Source: ??Pap Test, Cervix/Endocervix, ThinPrep Imaging System with ? manual evaluation ? Document reviewed and electr onically signed by: ? Daniella Rufina, CT( CP) ? Report ??Date: 10/07/ 2010 10:35 ? HPV with Pap Test ? Date Ordered: ? 1 ? Status: ?? Signed Out ?Date Complete: ? 07/21/2010 ? By: ??System Interface ? Date Reported: ? 07/21/2010 ? Interpretation ? RESULT: Negative for HPV typ es 16, 18, 31, 33, 35, 39, 45, 51, 52, ? 56, 58, 59, and 68. ? Comments ? Document reviewed and electr onically signed by: ? System Interface ? Report date: 07/21/20 ? By the signature above, the attending physician certifies that he/she has ? personally conducted a gross and/or microscopic examination of the described ? specimens and rendered or co nfirmed the above diagnosis. ? End of Report ? Specimen Performing Organization Address City/State/ZIP Code Phon e Number [facility] [address] [place] [address] SERVICES [facility] [address] [place] [address] documented in this encounter Visit Diagnoses Not on filedocumented in this encounter Care Teams Correctional Supervisor Relationship Specialty Start Date End Date Nash Fonseca MD PCP - General 04/10/09 12/19/[address] [place] [address] ,[address] [place] [address] documented as of this encounter
--- OUTSIDE RECORDS SUMMARY | 2022-05-07 00:21 | XMS_ITS | Encounter Summary ---
:1955 Author Organization [facility] Address [address] [place] [address] Care Team Providers Name Role Phone Nash Fonseca MD Primary Care Provider Encounter Details Date Type Department Care Team Description 07/05/2011 Results Only [facility]- PRISM Robbie Carlson MD [phone] [place] [address] Social History Tobacco Use Types Packs/Day Years Used Date Never Assessed Sex Assigned at Date Recorded Not on file documented as of this encounter Plan of Treatment Not on filedocumented as of this encounter Procedures Procedure Name Priority Date/Time Associated Diagnosis Comme nts PAP TEST- RESULT Routine 07/05/2011 0:00 EDT Resu lts for this ONLY procedure are i n the results section. documented in this encounter Results PAP TEST- RESULT ONLY (07/05/2011 0:00 EDT) Pathology Report: CYTOPATHOLOGY REPORT ? [facility] ? LAB Reports generated via Gather.md interface contain original data; ? however they are lacking the format of the original report. ? Caution should be taken when reading/interpreting unformatted reports. ? Name: ? KOREY JIMENEZ ? Accession #: ? [id number] ? : ? 1955 (Age: 55) ??F ?Collect Date: ? 07/05/2011 ? Location: ? [facility] ? Receive Date: ? 07/06/2011 ? Provider: ?ROBBIE S KE NNY MD ? Copy to: ?AGUSTIN E L EE MD ? Specimen/Source: ? Pap Test, Cervix/Endocervix, ThinPrep Imaging System ? with manual evaluation ? Last Menstrual Period: ? Previous Gynecologic Patholo gy: ? KINA II: 05/17/10 ? ASC-US: 04/08/10 ? HPV: + 04/08/10 ? Treatment History: ? LEEP: KINA II 05/17/10 ? Other: ? Additional clinical informat ion: // neg pap negative HPV. 11/03/ neg ? pap. ? SPECIMEN ADEQUACY ? Satisfactory for Eval uation ? - transformation zone compon ent present ? GENERAL CATEGORIZATION ? Negative for Intraepi thelial Lesion or Malignancy ? INTERPRETATION ? Reactive cellular isaiah nges associated with inflammation present (includes ?? repair). ? Document reviewed and electr onically signed by: ? BELLA MOUNT MD ? Report Date: ??10/04/ 2011 11:30 ? End of Report ? Specimen Performing Organization Address City/State/[facility] Code Phon e Number [facility] [address] [place] [address] [facility] [address] [place] [address] documented in this encounter Visit Diagnoses Not on filedocumented in this encounter Care Teams Pediatric Acute Care Unit Nurse Relationship Specialty Start Date End Date Nash Fonseca MD PCP - General 04/10/09 12/19/11 [facility]ICAL [facility] ,[address] [place] [phone] documented as of this encounter
--- NOTE | 2022-05-07 07:00 | DI.DEXA_ITS ---
Exam(s) XR DEXA BONE DENSITY W/WO KELVIN EXAM: XR DEXA BONE DENSITY W/WO KELVIN CLINICAL HISTORY: premature menopause, ASYMPTOMATIC MENOPAUSAL STATE, Z78.0, E28.319 TECHNIQUE: COMPARISON: No exams were available for comparison FINDINGS: Lateral Spine Image: Unremarkable. No compression deformities identified. Left hip: Total T-Score: -1.0 Total Z-Score: 0.3 T- and Z-scores: Within normal limits. Lumbar Spine: Total T-Score: -1.2 Total Z-Score: 0.6 T- and Z-scores: Findings are consistent with osteopenia. IMPRESSION: No evidence of osteoporosis in the left hip or lumbar spine.
--- NOTE | 2022-05-07 08:28 | DI.MAMMO_ITS ---
Exam(s) MAMMO SCREENING EXAM: MAMMO SCREENING CLINICAL HISTORY: screening, Z12.39 TECHNIQUE: Bilateral full field digital CC and MLO mammographic images were obtained with 3D tomosyn thesis and utilizing computer aided detection (CAD). COMPARISON: Available for comparison. FINDINGS: Masses/Architectural Distortion: None seen. Microcalcifications: No suspicious pleomorphic-type are seen. Skin Thickening/Nipple Retraction: None. IMPRESSION: 1. No significant interval change with no specific features of malignancy noted. 2. Unless there is more urgent need, screening mammography is recommended, as per [employer] guidelines. BI-RADS Category 1 - Negative Breast Density - Category B - Scattered areas of fibroglandular density Breast density category C or D implies that the patient has dense breast tissue. Dense breast tissue is very common and is not abnormal but dense breast tissue can make it harder to find cancer on a ma mmogram. Also, dense breast tissue may increase their breast cancer risk. This information about the result of the mammogram report was provided to the patient to raise their awareness. Use this report when you speak with the patient about their risks for breast cancer, which includes their family hist ory. At that time, you may recommend for more screening tests (Ultrasound or MRI) as they might be us eful based on their risk. A negative radiographic report should not delay biopsy if a dominant or clinically suspicious mass is present. Up to ten percent of cancers are not identified on mammography. A negative report may reinforce clinical impression. Adenosis and dense breasts may obscure an underlying neoplasm. False positive reports average 6 to 10%. Patient will receive a letter notifying them of these results.
== END 2022-05-07 00:39 ==
LOC: DI 00:19
PROVIDERS: PCP Internal Medicine; Visit Provider Internal Medicine
DX: Z12.31 Encounter for screening mammogram for malignant neoplasm of breast (principal); Z78.0 Asymptomatic menopausal state; R92.8 Other abnormal and inconclusive findings on diagnostic imaging of breast
CPT/HCPCS: 77063; 77067; 77080

== ENCOUNTER → 2022-05-07 00:41 | Outpatient (CLI) | payer BC, SELFPAY ==
--- OUTSIDE RECORDS SUMMARY | 2022-05-07 00:43 | XMS_ITS | Encounter Summary ---
:1955 Author Organization [facility] Address [address] [place] [address] Care Team Providers Name Role Phone Nash Fonseca MD Primary Care Provider Encounter Details Date Type Department Care Team Description 12/17/2011 Results Only [facility]- Benjamin Olivares DO [phone] [facility] [facility] [address] [place], [place] [address] (Wo rk) Social History Tobacco Use Types [...] ? KOREY JIMENEZ ? Accession #: ? [id number] ? : ? 1955 (Age: 56) ??F [...] eagents' ??performance characteristics have been determined by [facility]. ??This laboratory is certified unde r the Clinical Laboratory Improvement Amendments of 1988 (CLIA-88) as qualified to perform high complexity clinical laboratory testing. ?? Document reviewed and electronically signed by: EMMANUELLE [facility]ILA [facility] Report ??Date: 12/21/2011 15:50 By the signature [...] Organization Address City/State/ZIP Code Phon e Number [facility] [address] [place] [address] SERVICES [facility] [address] [place] [address] documented in this encounter Visit Diagnoses Not on filedocumented in this encounter Care Teams Farm Agent Relationship Specialty Start Date End Date Nash Fonseca MD PCP - General 04/10/[address] [place] [address] ,[address] [place] [address] documented as of this encounter
--- OUTSIDE RECORDS SUMMARY | 2022-05-07 00:43 | XMS_ITS | Encounter Summary ---
:1955 Author Organization [facility] Address [address] [place] [address] Care Team Providers Name Role Phone Agustin Fisher MD Primary Care Provider Encounter Details Date Type Department Care Team Description 09/07/2016 Results Only [facility]- Sadaf Francisco, [address] [place] [address] [place] [address] (Wo rk) Social History Tobacco Use Types Packs/Day Years Used Date Never Assessed Sex Assigned at Date Recorded Not on file documented as of this encounter Plan of Treatment Not on filedocumented as of this encounter Procedures Procedure Name Priority Date/Time Associated Diagnosis Comme [facility] SURGICAL PATHOLOGY Routine 09/07/2016 9:18 EST Re sults for this procedure are i n the results section. documented in this encounter Results SURGICAL PATHOLOGY (09/07/2016 9:18 EST) Pathology Report: SURGICAL PATHOLOGY REPORT [facility] Reports generated via electronic interface contain rita ginal data; LABORATORY however they are lacking the format of the original re port. SERVICES Caution should be taken when reading/interpreting unfo rmatted reports. Name: ? KOREY JIMENEZ ? Accession #: ? [id number] ? : ? 1955 (Age: 60) ??F [...] duct margin is inked blue. ? Two security representative se ctions and the inked en face cystic duct margin are submitted in 1. JILLIAN Najera (ASCP) 09/08/2016 11:08 AM End of Report Specimen Performing Organization Address City/State/ZIP Code Phon e Number [facility] [address] [place] [address] SERVICES documented in this encounter Visit Diagnoses Not on filedocumented in this encounter Care Teams Ticket Broker Relationship Specialty Start Date End Date Agustin Fisher MD PCP - General 12/20/11 [address] [facility] [place] [place] [id number] documented as of this encounter
--- OUTSIDE RECORDS SUMMARY | 2022-05-07 00:43 | XMS_ITS | Encounter Summary ---
:1955 Author Organization [facility] Address [address] [place] [address] Care Team Providers Name Role Phone Nash Fonseca MD Primary Care Provider Encounter Details Date Type Department Care Team Description 12/14/2011 Results Only [facility]- PRISM Robbie Carlson MD [phone] [place] [address] Social History Tobacco Use Types Packs/Day Years [...] ? KOREY JIMENEZ ? Accession #: ? [id number] ? : ? 1955 (Age: 56) ??F [...] Organization Address City/State/ZIP Code Phon e Number [facility] [address] [place] [address] SERVICES [facility] [address] [place] [address] documented in this encounter Visit Diagnoses Not on filedocumented in this encounter Care Teams Learning Disabilities Specialist Relationship Specialty Start Date End Date Nash Fonseca MD PCP - General 04/10/09 12/19/[address] [place] [address] ,[address] [place] [address] documented as of this encounter
--- OUTSIDE RECORDS SUMMARY | 2022-05-07 00:43 | XMS_ITS | Encounter Summary ---
:1955 Author Organization [facility] Address [address] [place] [address] Care Team Providers Name Role Phone Rena Fisher MD Primary Care Provider Encounter Details Date Type Department Care Team Description 09/04/2019 Lab Requisition [facility] Brie Keane for other Pathology & MD Peña general examination Laboratory Medicine [address] [place], [place] [address] [facility] [address] [place], [place] [address] Social History Tobacco Use Types Packs/Day Years [...] EST) Final Diagnosis A. RECTUM, POLYP, BIOPSY: [facility] Electronically - Fragments of tubular adenoma. CENTER signed by CHEYENNE Leblanc MD on SERVICES 09/07/2019 at 1 223 Clinical History Screening [facility] SERVICES Attestation By the signature [facility] Electronica lly below, the attending CENTER [...] 0.3 cm). Submitted in toto in A1. [facility] Holly Hancock 09/04/2019 16:49 LABORATO RY SERVICES Scanned Images [facility] SERVICES Specimen Tissue - Specimen from rectum (specimen) Performing Organization Address City/State/ZIP Code Phon e Number [facility] [address] [place] [address] SERVICES documented in this encounter Visit Diagnoses Diagnosis Encounter for other general examination documented in this encounter Care Teams Law Professor Relationship Specialty Start Date End Date Rena Fisher MD PCP - General 12/20/11 [address] [place], [place] [phone] documented as of this encounter
--- OUTSIDE RECORDS SUMMARY | 2022-05-07 00:43 | XMS_ITS | Encounter Summary ---
:1955 Author Organization [facility] Address [address] [place] [address] Care Team Providers Name Role Phone Nash Fonseca MD Primary Care Provider Encounter Details Date Type Department Care Team Description 07/22/2005 Results Only [facility] - Donell King, conversion CORK MOLDER [address] [place] [address] [place] [address] (Wo rk) Social History Tobacco Use Types [...] KOREY JIMENEZ ? Accession #: ? [id number] : ? 1955 (Age: 49) ??F ?Collect Date: ? 07/10 Location: ? [facility] ? Receive Date : ? 07/26/2005 Provider: ?AG WHITE CORK MOLDER Copy to: ? Specimen/Source: ? ThinPrep Pap Test, Cervix/Endocervix, processed on [employer] ThinPrep Imaging System, with manual evaluation Last [...] Organization Address City/State/ZIP Code Phon e Number [facility] [address] [place] [address] SERVICES [facility] [address] [place] [address] documented in this encounter Visit Diagnoses Not on filedocumented in this encounter Care Teams Linux Systems Administrator Relationship Specialty Start Date End Date Nash Fonseca MD PCP - General 04/10/09 12/19/[address] [place] [address] ,[address] [place] [address] documented as of this encounter
--- OUTSIDE RECORDS SUMMARY | 2022-05-07 00:43 | XMS_ITS | Encounter Summary ---
:1955 Author Organization [facility] Address [address] [place] [address] Care Team Providers Name Role Phone Unavailable Primary Care Provider Unavailable Encounter Details Date Type Department Care Team Description 04/08/2009 Orders Only [facility] Rahel Santiago MD Laboratory Services - [address] [place] [address] [address] [place] [address] Social History Tobacco Use Types [...] REPORT ? [facility] Reports generated via Clzby interface contain original data; ? LAB however they are lacking the format of the original report. ? Caution should be taken when reading/interpreting unformatted reports. ? Name: ? KOREY JIMENEZ ? Accession #: ? [id number] ? : ? 1955 (Age: 53) ??F ? Collec t Date: ? 04/08/2009 ? Location: ? [facility] ? R eceive Date: ? 04/09/2009 ? Provider: RAHEL ABHAY MD ? Copy to: MARLON JOYCE STRAIGHTENER ? Final Pathologic Diagnosis: ? Endometrium, biopsy: [...] Organization Address City/State/ZIP Code Phon e Number [facility] [address] [place] [address] SERVICES [facility] [address] [place] [address] documented in this encounter Visit Diagnoses Not on filedocumented in this encounter
--- OUTSIDE RECORDS SUMMARY | 2022-05-07 00:43 | XMS_ITS | Encounter Summary ---
:1955 Author Organization [facility] Address [address] [place] [address] Care Team Providers Name Role Phone Nash Fonseca MD Primary Care Provider Encounter Details Date Type Department Care Team Description 02/23/2010 Results Only [facility]- PRISM Osiris Carlson MD [phone] [place] [address] Social History Tobacco Use Types Packs/Day Years [...] REPORT ? [facility] Reports generated via Ingenious Med interface contain original data; ? LAB however they are lacking the format of the original report. ? Caution should be taken when reading/interpreting unformatted reports. ? Name: ? KOREY JIMENEZ ? Accession #: ? [id number] ? : ? 1955 (Age: 54) ??F [...] of tissue is submitted in (B6). ??(Aylin Michaels)/[facility] ? End of Report ? Specimen Performing Organization Address City/[facility]/ZIP Code Phon e Number [facility] [address] [place] [address] SERVICES [facility] [address] [place] [address] documented in this encounter Visit Diagnoses Not on filedocumented in this encounter Care Teams Sample Tailor Relationship Specialty Start Date End Date Nash Fonseca MD PCP - General 04/10/09 3 [address] [facility] ,[address] [place] [address] documented as of this encounter
--- OUTSIDE RECORDS SUMMARY | 2022-05-07 00:43 | XMS_ITS | Encounter Summary ---
:1955 Author Organization [facility] Address [address] [place] [address] Care Team Providers Name Role Phone Agustin Fisher MD Primary Care Provider Encounter Details Date Type Department Care Team Description 05/07/2013 Results Only [facility] Evangelista Noland, [facility] Laboratory Services - [address] [place], [place] 7[address] [facility] [address] [place] [address] [phone] Social History Tobacco Use Types Packs/Day Years [...] ? KOREY JIMENEZ ? Accession #: ? [id number] : ? 1955 (Age: 57) ??F ?Collect Date: ? 04/10 Location: ? [facility] ? Receive Date : ? 05/08/2013 Provider: ?MARLON JOYCE CASINO BANKER Copy to: ?AGUSTIN FISHER MD ? Specimen/Source: [...] Address City/State/ZIP Code Phon e Number [facility] [address] [place] [address] SERVICES [facility] [address] [place] [address] documented in this encounter Visit Diagnoses Not on filedocumented in this encounter Care Teams Home Assessment Nurse Relationship Specialty Start Date End Date Agustin Fisher MD PCP - General 12/20/[address] [place] [place] [address] documented as of this encounter
--- OUTSIDE RECORDS SUMMARY | 2022-05-07 00:43 | XMS_ITS | Encounter Summary ---
:1955 Author Organization [facility] Address [address] [facility] [place] [address] Care Team Providers Name Role Phone Nash Fonseca MD Primary Care Provider Encounter Details Date Type Department Care Team Description 07/05/2011 Results Only [facility]- PRISM Robbie Carlson MD [phone] [place] [address] Social History Tobacco Use Types Packs/Day Years [...] ALL EN ? LAB Reports generated via [employer] interface contain original data; ? however they are lacking the format of the original report. ? Caution should be taken when reading/interpreting unformatted reports. ? Name: ? KOREY JIMENEZ ? Accession #: ? [id number] ? : ? 1955 (Age: 55) ??F [...] of Report ? Specimen Performing Organization Address City/State/[facility] Code Phon e Number [facility] [address] [place] [address] SERVICES [facility] [address] [place] [address] documented in this encounter Visit Diagnoses Not on filedocumented in this encounter Care Teams Apprentice Electrician Relationship Specialty Start Date End Date Nash Fonseca MD PCP - General 04/10/09 12/19/11 [facility] ,[address] [place] [phone] documented as of this encounter
--- OUTSIDE RECORDS SUMMARY | 2022-05-07 00:43 | XMS_ITS | Encounter Summary ---
:1955 Author Organization [facility] Address [address] [facility] [place] [address] Care Team Providers Name Role Phone Nash Fonseca MD Primary Care Provider Encounter Details Date Type Department Care Team Description 02/05/2010 Results Only [facility]- PRISM Robbie Carlson MD [phone] [place] [address] Social History Tobacco Use Types Packs/Day Years [...] REPORT ? [facility] Reports generated via [employer] interface contain original data; ? LAB however they are lacking the format of the original report. ? Caution should be taken when reading/interpreting unformatted reports. ? Name: ? KOREY JIMENEZ ? Accession #: ? [id number] ? : ? 1955 (Age: 54) ??F [...] Dr. Cornelia Bose reviewed this case in [facility], and she concurs with the diagnosis of [...] entirely as (B) following fi ltration. ??(Julien Sorto)/[facility] ? End of Report ? Specimen Performing Organization Address City/State/ZIP Code Phon e Number [facility] [address] [place] [address] SERVICES [facility] [address] [place] [address] documented in this encounter Visit Diagnoses Not on filedocumented in this encounter Care Teams Engine Assembler Relationship Specialty Start Date End Date Nash Fonseca MD PCP - General 04/10/[address] [place] [address] ,[address] [place] [address] documented as of this encounter
--- OUTSIDE RECORDS SUMMARY | 2022-05-07 00:43 | XMS_ITS | Encounter Summary ---
:1955 Author Organization [facility] Address [address] [place] [address] Care Team Providers Name Role Phone Nash Fonseca MD Primary Care Provider Encounter Details Date Type Department Care Team Description 09/05/2007 Results Only [facility] - Donell King, conversion SOCIAL WORKER DELINQUENCY PREVENTION 111 [facility] [address] [place], [place] [address] [place] [phone] (Wo rk) Social History Tobacco Use Types [...] 68. Report Status Final [facility] [id number] Specimen Performing Organization Address City/State/ZIP Code Phon e Number [facility] [address] [place] [address] SERVICES [facility] [address] [place] [address] CYTOPATHOLOGY (09/05/2007 0:00 EST) Pathologist [facility] Pathology Report: CYTOPATHOLOGY REPORT [facility] Reports generated via electronic interface contain rita ginal data; however they are lacking the format of the original re port. Caution should be taken when reading/interpreting unfo rmatted reports. Name: ? KOREY JIMENEZ ? Accession #: ? [id number] : ? 1955 (Age: 51) ??F ?Collect Date: ? 08/11 Location: ? [facility] ? Receive Date : ? 09/07/2007 Provider: ?AG WHITE SOCIAL WORKER DELINQUENCY PREVENTION Copy to: ? Specimen/Source: ? ThinPrep Pap Test, Cervix/Endocervix, processed on SOLEM Electronique ThinPrep Imaging System, with manual evaluation Last [...] reviewed and electronically signed by: ? BONI Quiñones(ASCP)([facility]) ? Report Date: ??09/12/2007 12:17 End of Report Specimen Performing Organization Address City/State/ZIP Code Phon e Number [facility] [address] [place] [address] SERVICES [facility] [address] [place] [address] documented in this encounter Visit Diagnoses Not on filedocumented in this encounter Care Teams Collar Shaper Operator Relationship Specialty Start Date End Date Nash Fonseca MD PCP - General 04/10/09 12/19/[address] [place] [address] ,[address] [place] [address] documented as of this encounter
--- OUTSIDE RECORDS SUMMARY | 2022-05-07 00:43 | XMS_ITS | Encounter Summary ---
:1955 Author Organization [facility] Address [address] [place] [address] Care Team Providers Name Role Phone Agustin Fisher MD Primary Care Provider Encounter Details Date Type Department Care Team Description 07/06/2017 Results Only [facility]- PRISM Agustin Fisher MD [phone] [address] [place] [address] (Wo rk) Social History Tobacco [...] (07/06/2017 0:00 EDT) Pathology Report: CYTOPATHOLOGY REPORT [facility] Reports generated via electronic interface contain rita ginal data; SERVICES however they are lacking the format of the original re port. Caution should be taken when reading/interpreting unfo rmatted reports. Name: ? KOREY JIMENEZ ? Accession #: ? [id number] ? : ? 1955 (Age: 61) ??F [...] types 16,18,31,3 3,35, 39,45,51,52,56,58,59,66, and 68 by java software developer media sandee amplification. Comments Document reviewed and electronically signed by: ? System Interface ? Report date: 07/22/2017 By the signature above, the attending physician certif ies that he/she has personally conducted a gross and/or microscopic examin ation of the described specimens and rendered or confirmed the above diagnosi s. End of Report Specimen Performing Organization Address City/State/ZIP Code Phon e Number [facility] [address] [place], [place] [id number] SERVICES documented in this encounter Visit Diagnoses Not on filedocumented in this encounter Care Teams Chief Revenue Officer Relationship Specialty Start Date End Date Agustin Fisher MD PCP - General 12/20/[address] [place] [address] documented as of this encounter
--- OUTSIDE RECORDS SUMMARY | 2022-05-07 00:43 | XMS_ITS | Encounter Summary ---
:[address] [facility] Address [address] [place] [address] Care Team Providers Name Role Phone Unavailable Primary Care Provider Unavailable Encounter Details Date Type Department Care Team Description 09/19/2008 Before PRISM [facility] - Tabitha Noland, Converted Visit Maple conversion PLASTIC AND RECONSTRUCTIVE SURGEON (Maple) 111 [facility] [address] [place] [address] [place], [place] [phone] (Wo rk) Social History Tobacco Use Types Packs/Day Years Used Date Never Assessed Sex Assigned at Date Recorded Not on file documented as of this encounter Plan of Treatment Not on filedocumented as of this encounter Procedures Procedure Name Priority Date/Time Associated Diagnosis Comme [facility] CYTOPATHOLOGY Routine 09/19/2008 0:00 EST Results for this procedure are i n the results section . documented in this encounter Results CYTOPATHOLOGY (09/19/2008 0:00 EST) Pathology Report: CYTOPATHOLOGY REPORT ? [facility] ? LAB Reports generated via Xercise4less interface contain original data; ? however they are lacking the format of the original report. ? Caution should be taken when reading/interpreting unformatted reports. ? Name: ? YOANNATALIE, KOREY ? Accession #: ? [id number] ? : ? 1955 (Age: 52) ??F ?Collect Date: ? 09/19/2008 ? Location: ? [facility] ? Receive Date: ? 09/20/2008 ? Provider: ?TABITHA RAMIREZ OOD PLASTIC AND RECONSTRUCTIVE SURGEON ? Copy to: ? Specimen/Source: ? Pap [...] was ?? collected during the first h penitentiary of the menstrual cycle. ? There is [...] Organization Address City/State/ZIP Code Phon e Number [facility] [address] [place] [address] SERVICES [facility] [address] [place] [address] documented in this encounter Visit Diagnoses Not on filedocumented in this encounter
--- OUTSIDE RECORDS SUMMARY | 2022-05-07 00:43 | XMS_ITS | Encounter Summary ---
:1955 Author Organization [facility] Address [address] [place] [address] Care Team Providers Name Role Phone Agustin Fisher MD Primary Care Provider Encounter Details Date Type Department Care Team Description 08/08/2014 Results Only [facility] Evangelista Noland, BULK DRIVER Laboratory Services - [address] [place], [place] 790 [facility] [address] [place] [address] [phone] Social History Tobacco Use Types Packs/Day Years [...] (08/08/2014 0:00 EDT) Pathology Report: CYTOPATHOLOGY REPORT [facility] Reports generated via electronic interface contain rita ginal data; SERVICES however they are lacking the format of the original re port. Caution should be taken when reading/interpreting unfo rmatted reports. Name: ? KOREY JIMENEZ ? Accession #: ? [id number] : ? 1955 (Age: 58) ??F ?Collect Date: ? 07/12 Location: ? [facility] ? Receive Date : ? 08/09/2014 Provider: ?MARLON JOYCE BULK DRIVER Copy to: ?AGUSTIN FISHER MD ? Specimen/Source: [...] Address City/State/ZIP Code Phon e Number [facility] [address] [place] [address] SERVICES documented in this encounter Visit Diagnoses Not on filedocumented in this encounter Care Teams Defensive Secondary Coach Relationship Specialty Start Date End Date Agustin Fisher MD PCP - General 12/20/11 [address] [place] [address] documented as of this encounter
--- OUTSIDE RECORDS SUMMARY | 2022-05-07 00:43 | XMS_ITS | Encounter Summary ---
:1955 Author Organization [facility] Address [address] [place] [address] Care Team Providers Name Role Phone Agustin Fisher MD Primary Care Provider Encounter Details Date Type Department Care Team Description 09/15/2012 Results Only [facility] David Altman, Laboratory Services - [address] [place] [address] [address] [facility] [place] [address] [phone] Social History Tobacco Use Types Packs/Day Years [...] Results SURGICAL PATHOLOGY (09/15/2012 0:00 EST) Pathologist [facility] Pathology SURGICAL PATHOLOGY REPORT [facility] Report: Reports generated via electronic interface contain rita ginal data; LAB however they are lacking the format of the original re port. Caution should be taken when reading/interpreting unfo rmatted reports. Name: ? KOREY JIMENEZ ? Accession #: ? [id number] ? : ? 1955 (Age: 56) ??F [...] Result ? B ?H. py wade (polyclonal, PowerCard Vision) ?Negative. ? NOTE: ??One or more [...] eagents' performance characteristics have been determined by [facility]. ??This laboratory is certified unde r the [...] specimens are submitted intact as (B). ??(Hellen Hwang/[facility] End of Report Specimen Performing Organization Address City/State/ZIP Code Phon e Number [facility] [address] [place] [address] SERVICES [facility] [address] [place] [address] documented in this encounter Visit Diagnoses Not on filedocumented in this encounter Care Teams Huller Operator Relationship Specialty Start Date End Date Agustin Fisher MD PCP - General 12/20/11 [address] [place], [place] [phone] documented as of this encounter
--- OUTSIDE RECORDS SUMMARY | 2022-05-07 00:43 | XMS_ITS | Encounter Summary ---
:1955 Author Organization [facility] Address [address] [place] [address] Care Team Providers Name Role Phone Nash Fonseca MD Primary Care Provider Encounter Details Date Type Department Care Team Description 11/03/2010 Results Only [facility]- PRISM Robbie Carlson MD [phone] [place] [address] Social History Tobacco Use Types Packs/Day Years [...] EN ? LAB Reports generated via electr Guidefitter interface contain original data; ? however they are lacking the format of the original report. ? Caution should be taken when reading/interpreting unformatted reports. ? Name: ? KOREY JIMENEZ ? Accession #: ? [id number] ? : ? 1955 (Age: 55) ??F [...] and electr onically signed by: ? Daniella [place], [place]( CP) ? Report Date: ??01/31/ 2011 12:56 ? End of Report ? Specimen Performing Organization Address City/State/ZIP Code Phon e Number [facility] [address] [place] [address] SERVICES [facility] [address] [place] [address] documented in this encounter Visit Diagnoses Not on filedocumented in this encounter Care Teams Forest Nursery Supervisor Relationship Specialty Start Date End Date Nash Fonseca MD PCP - General 04/10/[address] [place] [address] ,[address] [place] [address] documented as of this encounter
--- OUTSIDE RECORDS SUMMARY | 2022-05-07 00:43 | XMS_ITS | Encounter Summary ---
:1955 Author Organization [facility] Address [address] [facility] [place] [address] Care Team Providers Name Role Phone Nash Fonseca MD Primary Care Provider Encounter Details Date Type Department Care Team Description 07/09/2010 Results Only [facility]- PRISM Robbie Carlson MD [phone] [place] [address] Social History Tobacco Use Types Packs/Day Years [...] EN ? LAB Reports generated via electr [employer] interface contain original data; ? however they are lacking the format of the original report. ? Caution should be taken when reading/interpreting unformatted reports. ? Name: ? KOREY JIMENEZ ? Accession #: ? [id number] ? : ? 1955 (Age: 54) ??F [...] Organization Address City/State/ZIP Code Phon e Number [facility] [address] [place] [address] SERVICES [facility] [address] [place] [address] documented in this encounter Visit Diagnoses Not on filedocumented in this encounter Care Teams Office Asst Relationship Specialty Start Date End Date Nash Fonseca MD PCP - General 04/10/09 12/19/[address] [place] [address] ,[address] [place] [address] documented as of this encounter
--- OUTSIDE RECORDS SUMMARY | 2022-05-07 00:43 | XMS_ITS | Encounter Summary ---
:1955 Author Organization [facility] Address [address] [place] [address] Care Team Providers Name Role Phone Nash Fonseca MD Primary Care Provider Encounter Details Date Type Department Care Team Description 01/15/2010 Results Only [facility] Evangelista Noland, BEVERAGE MANAGER Laboratory Services - [address] [facility] [address] [place], [place] [address] [place] [address] [place] [address] [phone] Social History Tobacco Use Types Packs/Day Years [...] Organization Address City/State/ZIP Code Phon e Number [facility] [address] [place] [address] SERVICES [facility] [address] [address] CYTOPATHOLOGY (01/15/2010 0:00 EDT) Pathology Report: CYTOPATHOLOGY REPORT ? [facility] ? LAB Reports generated via electr onic interface contain original data; ? however they are lacking the format of the original report. ? Caution should be taken when reading/interpreting unformatted reports. ? Name: ? KOREY JIMENEZ ? Accession #: ? [id number] ? : ? 1955 (Age: 54) ??F ?Collect Date: ? 01/15/2010 ? Location: ? [facility] ? Receive Date: ? 01/16/2010 ? Provider: ?MARLON HAYG OOD BEVERAGE MANAGER ? Copy to: ? Specimen/Source: ? Pap [...] significance (ASC-US). ? EDUCATIONAL NOTES/RECOMMENDA TIONS ? [facility] recommends follo wing the 2005 Consensus Guidelines [...] Organization Address City/State/ZIP Code Phon e Number [facility] [address] [place] [address] SERVICES [facility] [address] [place] [address] documented in this encounter Visit Diagnoses Not on filedocumented in this encounter Care Teams Aluminum Boats Assembler Relationship Specialty Start Date End Date Nash Fonseca MD PCP - General 04/10/09 12/19/[address] [place] [address] ,[address] [place] [address] documented as of this encounter
== END ==
PROVIDERS: PCP Internal Medicine; Visit Provider Internal Medicine

== ENCOUNTER → 2022-05-17 15:58 | Outpatient (CLI) | payer OTHER, SELFPAY ==
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
== END ==
PROVIDERS: PCP Internal Medicine; Visit Provider Family Medicine
DX: M25.512 Pain in left shoulder (principal); M79.641 Pain in right hand; M65.351 Trigger finger, right little finger
CPT/HCPCS: 73030; 73130

== ENCOUNTER 2022-10-28 05:44 | Emergency (ER) | payer BC, SELFPAY ==
[2022-10-28] VITALS (27 sets, daily range): BP systolic 125–140; BP diastolic 65–81; PULSE 58–74; RESP 7–42; TEMP 36.8; O2SAT 94–100
--- NOTE | 2022-10-28 05:45 | RT.EKG_ITS ---
APPROVED REPORT Exam: Resting ECG Reason for Exam: chest pain, trouble breathing Patient Location: E HR:69 bpm ECG Measurements Heart Rate 69 AXIS ND 148 P 17 QRSd 109 QRS -3 QT 431 T 68 QTc 462 Conclusion Sinus rhythm...normal P axis, V-rate 60- 99
--- NOTE | 2022-10-28 06:00 | DI.RAD_ITS ---
Exam(s) XR CHEST 2V PA LATERAL EXAM: XR CHEST 2V PA LATERAL CLINICAL HISTORY: burning chest pain. TECHNIQUE: 2D digital imaging was performed. COMPARISON: CR CHEST 2 VIEWS PA,LAT from 08/06/2014 FINDINGS: 2 views: Heart size is normal. The mediastinum is not widened. Lungs are clear. No infiltrates nor pleural effusions. IMPRESSION: No acute pulmonary findings. DATA REPOSITORY: RADIATION DOSE DELIVERED:
[2022-10-28] MEDS: Ondansetron 4 MG/2 ML VIAL IVP (06:07)
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
[2022-10-28 06:11] LABS: Abs Immature Grans 0.01 10^3/uL (0.0-0.06); Absolute Basophil Count 0.05 10^3/uL (0.0-0.2); Absolute Eosinophil Count 0.23 10^3/uL (0.0-0.7); Absolute Lymphocyte Count 1.71 10^3/uL (1.2-3.4); Absolute Monocyte Count 0.66 10^3/uL (0.1-0.8); Absolute Neutrophil Count 4.33 10^3/uL (1.2-6.7); Basophils % 0.7; Eosinophils % 3.3; HCT 42.4 % (36.0-46.0); HGB 13.9 g/dL (11.2-15.7); Immature Grans % 0.1; Lymphocytes % 24.5; MCH 29.3 pg (27.0-33.0); MCHC 32.8 % (32.0-36.0); MCV 89 fL (80-95); MPV 11.1 fL (8.0-11.0); Monocytes % 9.4; Platelet Count 223 10^3/uL (130-400); RBC 4.75 10^6/uL (3.93-5.22); RDW 12.2 % (11.7-14.6); RDW-SD 40.4 fL; WBC 6.99 10^3/uL (4.4-10.8)
[2022-10-28] MEDS: Pantoprazole 40 MG VIAL IVP (06:16)
[2022-10-28 06:34] LABS: Lipase 93 U/L (73-393)
[2022-10-28 06:41] LABS: ALT 54 U/L (14-59); AST 36 U/L (15-37); Albumin 4.2 g/dL (3.4-5.0); Alkaline Phosphatase 135 U/L (46-116); Anion Gap 10.4 mmol/L (3-11); BUN 16 mg/dL (7-18); Bilirubin, Total 0.5 mg/dL (0.2-1.0); CO2 26.6 mmol/L (21.0-32.0); CREATININE 0.7 mg/dL (0.55-1.02); Calcium 9.7 mg/dL (8.5-10.1); Chloride 107 mmol/L (98-107); Estimated GFR 95.32 (mL/min/1.73m2); Glucose 104 mg/dL (74-106); Magnesium 1.8 mg/dL (1.8-2.4); Potassium 3.5 mmol/L (3.5-5.1); Sodium 144 mmol/L (136-145); Troponin I < 50 ng/L (<or=60)
--- NOTE | 2022-10-28 06:45 | DI.VRAD_ITS ---
PROCEDURE INFORMATION: Exam: XR Chest Exam date and time: 10/28/2022 6:31 AM Age: 67 years old Clinical indication: Other: Burning chest pain TECHNIQUE: Imaging protocol: Radiologic exam of the chest. Views: 2 views. COMPARISON: CR XR SHOULDER LT COMPLETE 2+V 05/17/2022 12:46 PM FINDINGS: Lungs: Unremarkable. No consolidation. Pleural spaces: Unremarkable. No pleural effusion. No pneumothorax. Heart/Mediastinum: Tortuous aorta. No cardiomegaly. Bones/joints: Unremarkable. IMPRESSION: No acute findings. Dictated and Authenticated by: Kraig Pepe MD. Ordering:DARÍO Cardona MD
[2022-10-28] MEDS: ACETAMINOPHEN 1,000 MG/100 ML BTL 400 MG IVPB (07:05)
[2022-10-28] MEDS: Normal Saline Flush 10 ML SYR IVP (07:06)
[2022-10-28 07:35] LABS: Bilirubin Negative (Negative); Blood Negative (Negative); Clarity Clear (Clear); Glucose Negative (Negative); Ketones Negative (Negative); Leukocyte Esterase Moderate (Negative); Nitrite Negative (Negative); Urobilinogen 0.2 EU/dL (Up TO 0.2)
[2022-10-28 07:44] LABS: Bacteria Few HPF (Negative); Crystals Negative HPF (Negative); Epithelial Cells Rare HPF (Negative); RBC 0-2 HPF (0-2)
[2022-10-28 07:45] LABS: C & S Indicated? Yes; Casts Negative LPF (Negative); Mucus Negative (Negative)
[2022-10-28 09:17] LABS: Troponin I < 50 ng/L (<or=60)
--- NOTE | 2022-10-30 09:09 | NUR.NOTE ---
Nursing Note: Access patient record to look up antibiotic for culture
== END 2022-10-28 10:03 | disposition home or self-care (01) ==
PROVIDERS: Emergency Provider Emergency Medicine; PCP Nurse Practitioner Adult Health
DX: R07.2 Precordial pain (principal); R10.13 Epigastric pain; R10.816 Epigastric abdominal tenderness
CPT/HCPCS: 80053; 83690; 93005; 96365; 96375; 99284; 71046; 81003; 81015; 83735; 84484; 85025; 87086; 93010; 99285; J0131; J2405

== ENCOUNTER 2023-01-12 11:06 | Outpatient (REF) | payer BC, SELFPAY | END 2023-01-12 11:07 | disposition home or self-care (01) | LOC: LBN 11:06 | PROVIDERS: PCP Nurse Practitioner Adult Health; Visit Provider Nurse Practitioner Adult Health | DX: R39.15 Urgency of urination (principal) | CPT/HCPCS: 87086 ==

== ENCOUNTER 2023-03-02 12:27 | Outpatient (CLI) | payer BC, SELFPAY ==
[2023-03-02 12:55] LABS: Abs Immature Grans 0.02 10^3/uL (0.0-0.06); Absolute Basophil Count 0.04 10^3/uL (0.0-0.2); Absolute Eosinophil Count 0.08 10^3/uL (0.0-0.7); Absolute Lymphocyte Count 1.87 10^3/uL (1.2-3.4); Absolute Neutrophil Count 4.19 10^3/uL (1.2-6.7); Basophils % 0.6; Eosinophils % 1.2; HCT 43.1 % (36.0-46.0); HGB 14.4 g/dL (11.2-15.7); Immature Grans % 0.3; Lymphocytes % 27.5; MCH 29.9 pg (27.0-33.0); MCHC 33.4 % (32.0-36.0); MCV 90 fL (80-95); Monocytes % 8.8; Neutrophils % 61.6; Platelet Count 226 10^3/uL (130-400); RBC 4.81 10^6/uL (3.93-5.22); RDW 12.4 % (11.7-14.6); RDW-SD 40.9 fL
[2023-03-02 13:29] LABS: Lipase 29 U/L (16-77)
[2023-03-02 13:33] LABS: ALT 43 U/L (14-59); AST 17 U/L (15-37); Albumin 4.3 g/dL (3.4-5.0); Alkaline Phosphatase 131 U/L (46-116); Anion Gap 6.6 mmol/L (3-11); BUN 15 mg/dL (7-18); Bilirubin, Total 0.6 mg/dL (0.2-1.0); CO2 27.4 mmol/L (21.0-32.0); CREATININE 0.7 mg/dL (0.55-1.02); Calcium 10.1 mg/dL (8.5-10.1); Chloride 103 mmol/L (98-107); Estimated GFR 95.32 (mL/min/1.73m2); Glucose 93 mg/dL (74-106); Potassium 3.7 mmol/L (3.5-5.1); Sodium 137 mmol/L (136-145); Total Protein 8.3 g/dL (6.4-8.2)
== END 2023-03-02 12:28 | disposition home or self-care (01) ==
LOC: LBO 12:29
PROVIDERS: PCP Nurse Practitioner Adult Health; Visit Provider Nurse Practitioner Family
DX: R14.0 Abdominal distension (gaseous) (principal); R11.0 Nausea
CPT/HCPCS: 36415; 80053; 83690; 85025

== ENCOUNTER 2023-03-21 16:41 | Outpatient (REF) | payer BC, SELFPAY ==
--- NOTE | 2023-03-21 13:30 | PAPFT_PTH ---
PATIENT: Jewels Jimenez LOC: [facility]#:[id number] AGE/SX: 67/F ROOM: RE03/21/[address]: Reena Kumar APRN : 1955 BED: DIS: 03/21/2023 SPEC #: [id number] RECD: 03/21/23 17:48 STATUS: LEODAN REBenjy #: [id number] MICKEY: 03/21/23 13:[address]: Reena Kumar DEPT: [facility] Cytology RECD BY: Rosalia Delacruz Tissues: 1 - CX/ENDOCX FOR PAP SMEARS Procedures: PAP THIN PREP/UVM Screening HPV DNA PROBE Comments: [id number]
== END 2023-03-21 16:42 | disposition home or self-care (01) ==
LOC: LBN 16:41
PROVIDERS: PCP Nurse Practitioner Adult Health; Visit Provider Nurse Practitioner Adult Health
DX: Z12.4 Encounter for screening for malignant neoplasm of cervix (principal); Z11.51 Encounter for screening for human papillomavirus (HPV)
CPT/HCPCS: 88142; 87624

== ENCOUNTER 2023-11-17 02:11 | Outpatient (CLI) | payer OTHER, SELFPAY ==
[2023-11-18 15:26] LABS: IgA 175 mg/dL (85-499); Interpretation (See Note); Tissue Transglutaminase IgA <4.0 CU (<20.0)
== END 2023-11-17 02:12 | disposition home or self-care (01) ==
LOC: LBO 02:11
PROVIDERS: Absent Provider Nurse Practitioner; PCP Nurse Practitioner Adult Health; Visit Provider Nurse Practitioner
DX: R10.13 Epigastric pain (principal)
CPT/HCPCS: 36415; 82784; 83516

== ENCOUNTER 2023-11-17 13:42 | Outpatient (REF) | payer OTHER, SELFPAY ==
[2023-11-18 15:28] LABS: Helicobacter pylori Ag, Feces Negative (Negative)
== END 2023-11-17 13:43 | disposition home or self-care (01) ==
LOC: LBN 13:42
PROVIDERS: PCP Nurse Practitioner Adult Health; Visit Provider Nurse Practitioner
DX: R10.13 Epigastric pain (principal)
CPT/HCPCS: 87338

== ENCOUNTER → 2023-11-24 03:11 | Outpatient (CLI) | payer MEDICARE, SELFPAY ==
--- NOTE | 2023-11-24 08:45 | DI.MAMMO_ITS ---
Exam(s) MAMMO SCREENING EXAM: MAMMO SCREENING CLINICAL HISTORY: screening Z12.39 FOR BREAST CANCER TECHNIQUE: Mammograms were interpreted according to the usual protocol including computer analysis w [employer] CAD system, tomosynthesis and C-view imaging. COMPARISON: 2013 through 2021 FINDINGS: The breasts are composed of scattered fibroglandular densities, Breast Density category B. No suspicious masses or suspicious microcalcifications are seen. No skin thickening or abnormal axillary lymph nodes are seen. There has been no significant change from prior exams. IMPRESSION: BI-RADS Category 1, Negative mammogram Yearly screening mammography is recommended. Breast Density - Category B, scattered fibroglandular densities. A negative radiographic report should not delay biopsy if a dominant or clinically suspicious mass is present. Up to ten percent of cancers are not identified on mammography. A negative report may reinforce clinical impression. Adenosis and dense breasts may obscure an underlying neoplasm. False positive reports average 6 to 10%. Patient will receive a letter notifying them of these results.
== END ==
PROVIDERS: PCP Nurse Practitioner Adult Health; Visit Provider Nurse Practitioner Adult Health
DX: Z12.31 Encounter for screening mammogram for malignant neoplasm of breast (principal)
CPT/HCPCS: 77063; 77067

== ENCOUNTER → 2024-04-16 02:39 | Outpatient (CLI) | payer MEDICARE, SELFPAY ==
--- NOTE | 2024-04-16 13:20 | DI.RAD_ITS ---
Exam(s) XR FOOT RT COMPLETE EXAM: XR FOOT RT COMPLETE CLINICAL HISTORY: Right foot pain,M79.671. TECHNIQUE: 2D digital imaging was performed. Three views. COMPARISON: No exams were available for comparison FINDINGS: BONES: No acute fracture is present. No bony destructive lesion is seen. Enthesophyte at Achilles in sertion. Tiny plantar calcaneal spur. JOINTS: No dislocation present. Moderate narrowing of the 1st MTP joint space. Mild to moderate per iarticular spurring. Little degenerative changes elsewhere. The plantar arch is maintained. SOFT TISSUE: Normal. IMPRESSION: Degenerative changes of the 1st MTP joint. DATA REPOSITORY: RADIATION DOSE DELIVERED:
== END ==
PROVIDERS: PCP Nurse Practitioner Adult Health; Visit Provider Podiatrist
DX: M79.671 Pain in right foot (principal); M19.071 Primary osteoarthritis, right ankle and foot
CPT/HCPCS: 73630

== ENCOUNTER → 2024-05-07 13:02 | Outpatient (BNVA) | payer MEDICARE, SELFPAY | PROVIDERS: PCP Nurse Practitioner Adult Health; Referring Provider Nurse Practitioner Adult Health; Visit Provider Podiatrist | DX: M20.21 Hallux rigidus, right foot (principal); R25.2 Cramp and spasm; M79.671 Pain in right foot | CPT/HCPCS: 99214 ==

== ENCOUNTER 2024-05-21 12:01 | Outpatient (CLI) | payer MEDICARE, SELFPAY ==
--- NOTE | 2024-05-21 12:00 | RT.EKG_ITS ---
APPROVED REPORT Exam: Resting ECG Reason for Exam: Pre-op for podiatry Patient Location: O HR:61 bpm ECG Measurements Heart Rate 61 AXIS SD 131 P 27 QRSd 101 QRS -18 QT 443 T 72 QTc 447 Conclusion Sinus rhythm...normal P axis, V-rate 50- 99 Borderline left axis deviation...QRS axis (-15,-29) Borderline low voltage, extremity leads...all extremity leads <0.6mV RSR' in V1 or V2, probably normal variant...small R' only
== END 2024-05-21 12:02 | disposition home or self-care (01) ==
LOC: DI.KIM 12:03
PROVIDERS: PCP Nurse Practitioner Adult Health; Visit Provider Emergency Medicine
DX: Z01.818 Encounter for other preprocedural examination (principal)
CPT/HCPCS: 93010

== ENCOUNTER 2024-06-14 15:33 | Outpatient (CLI) | payer MEDICARE, SELFPAY ==
[2024-06-14 15:04] LABS: Abs Immature Grans 0.03 10^3/uL (0.0-0.06); Absolute Basophil Count 0.04 10^3/uL (0.0-0.2); Absolute Eosinophil Count 0.13 10^3/uL (0.0-0.7); Absolute Monocyte Count 0.49 10^3/uL (0.1-0.8); Absolute Neutrophil Count 5.23 10^3/uL (1.2-6.7); Basophils % 0.5 %; Eosinophils % 1.7 %; HCT 40.9 % (36.0-46.0); HGB 13.4 g/dL (11.2-15.7); Immature Grans % 0.4 %; Lymphocytes % 23.3 %; MCH 29.4 pg (27.0-33.0); MCHC 32.8 % (32.0-36.0); MCV 90 fL (80-95); MPV 10.9 fL (8.0-11.0); Monocytes % 6.3 %; Neutrophils % 67.8 %; Platelet Count 214 10^3/uL (130-400); RBC 4.56 10^6/uL (3.93-5.22); RDW 12.4 % (11.7-14.6); RDW-SD 41.1 fL; WBC 7.72 10^3/uL (4.4-10.8)
[2024-06-14 15:40] LABS: ALT 58 U/L (14-59); AST 30 U/L (15-37); Albumin 4.1 g/dL (3.4-5.0); Alkaline Phosphatase 113 U/L (46-116); Anion Gap 8.3 mmol/L (3-11); BUN 12 mg/dL (7-18); Bilirubin, Total 0.68 mg/dL (0.2-1.0); CO2 28.7 mmol/L (21.0-32.0); CREATININE 0.7 mg/dL (0.55-1.02); Calcium 9.5 mg/dL (8.5-10.1); Chloride 104 mmol/L (98-107); Estimated GFR 94.73 (mL/min/1.73m2); Glucose 97 mg/dL (74-106); Potassium 3.9 mmol/L (3.5-5.1); Sodium 141 mmol/L (136-145); Total Protein 7.6 g/dL (6.4-8.2)
== END 2024-06-14 15:34 | disposition home or self-care (01) ==
LOC: LBO 15:33
PROVIDERS: PCP Nurse Practitioner Adult Health; Visit Provider Podiatrist
DX: Z01.818 Encounter for other preprocedural examination (principal); L97.512 Non-pressure chronic ulcer of other part of right foot with fat layer exposed
CPT/HCPCS: 36415; 80053; 85025

== ENCOUNTER 2024-06-18 08:48 | Day surgery (SDC) | payer MEDICARE, SELFPAY ==
[2024-06-18 09:32] VITALS: BP 132/70; PULSE 71; RESP 16; TEMP 36.3; O2SAT 97
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
[2024-06-18] MEDS: Lactated Ringers 1,000 ML 30 ML IV (09:59)
[2024-06-18 14:21] VITALS: BMI 25.2
[2024-06-18] MEDS: CLINDAMYCIN 300 MG/50 ML BAG 100 MG IVPB (14:55)
[2024-06-18] MEDS: Lidocaine 1% Pres-Free 30 ML VIAL (15:11)
[2024-06-18] MEDS: Bupivacaine 0.25% Pres-Free 30 ML VIAL (16:35)
[2024-06-18 16:52] VITALS: BP 129/85; PULSE 67; RESP 16; TEMP 36.1; O2SAT 96
--- NOTE | 2024-06-18 16:52 | W.PM.DSUDISC ---
Date of service: 06/18/24 Time of Service: 16:52 Discharge Plan Disposition Patient Disposition: Home Condition: Stable Discharge Details Attending Provider: Nora Aparicio Primary Care Provider: Reena Kumar Home Meds and New Rx's Prescriptions: No Action cholecalciferol (vitamin D3) 50 mcg (2,000 unit) capsule 50 mcg PO DAILY oxycodone-acetaminophen [Percocet] 7.5-325 mg tablet 1 tab PO Q8H MDD 3 tabs 3 Days Qty: 9 0RF meclizine 12.5 mg tablet 12.5 - 25 mg PO BID MDD 100 mg PRN (Reason: vertigo) Qty: 30 0RF Rx Instructions: May increase to 50 mg per dose if 12.5-25 mg is not effective ondansetron 4 mg tablet,disintegrating 4 mg PO TID PRN (Reason: nausea and vomiting) Qty: 15 0RF famotidine 40 mg tablet 40 mg PO DAILY Qty: 90 3RF cyclosporine [Restasis] 0.05 % Dropperette 1 drp OPHTHALMIC (EYE) Q12H Discharge Instructions Additional Instructions: Please keep dressings clean, dry and intact. Rest ice and elevate. Do not put weight on the foot. Keep using the cam boot. Use crutches or knee scooter as needed. You have an appointment on for follow-up. Activity:: Elevate Remove Dressings/Wound Care:: Do Not Remove Shower/Bathe:: Cover Diet:: Normal Diet Discharge Orders Discharge Orders: Discharge Order (Routine); Ordered 06/18/24 Ordered By: Nora Aparicio DS: Diagnosis Discharge Diagnosis (1) Hallux rigidus of right foot: Status: Acute
--- NOTE | 2024-06-18 16:53 | ROE_ITS ---
Date of service: 06/18/24 Time of Service: 16:54 Operative Note Operative Note DATE OF PROCEDURE: 06/18/24 PRE-OP DIAGNOSIS: Hallux rigidus right foot POST-OP DIAGNOSIS: same PROCEDURE: Arthrodesis, first metatarsophalangeal joint, right foot SURGEON: Nora Aparicio ANESTHESIA TYPE: Local By Surgeon (20 mL 1% lidocaine plain preop) Refer to Anesthesia Record ESTIMATED BLOOD LOSS: 2 TOURNIQUET TIME: 87 COMPLICATIONS: None Patient was transported to: same day Patient's condition: stable Implants: MTP plate 0 degree dorsiflexion Stable 18 mm x 18 mm x 14 mm x 1 3.0 locking screws 12 mm, 14 mm, 16 mm, 18 mm Indications: Female patient with pain with weightbearing and range of motion to the first me tatarsophalangeal joint of the right foot. Arthrodesis was offered to the patient since she has failed all conservative treatment option at this time. I discussed the risks benefits and possible complications including but not limited to infection, bleeding, recurrence, malunion, nonunion, delayed union, chronic pain, chronic swelling and need for further surgery or amputation. No guarantees or warranties to the outcome of the procedure were made or implied. All questions were answered to patient satisfaction. Consent form signed, reviewed and in chart. Medical clearance granted. No contraindications noted at this time Findings: Cartilage denudement at the first metatarsophalangeal joint greater than 80% Procedure Description: Patient was identified in preop holding. Site was marked. Patient was then brought to the operating room placed on the operating table in supine position. Following duction of anesthesia local anesthesia was obtained using 20 mL 1% lidocaine plain preoperatively. An ankle tourniquet was applied to the patient's right ankle. The foot was then scrubbed, prepped and draped in the usual aseptic manner. Patient's right foot was then elevated to help exsanguinate the right lower extremity. Tourniquet was then inflated. Attention was then directed to the dorsal aspect of the first metatarsal head of the left foot where approximately 5 to 7 cm linear longitudinal incision was made medial and parallel to the tendon of extensor hallucis longus. The incision was deepened through the subcutaneous tissue using sharp and blunt dissection using a sterile #15 blade. Care was taken to identify and retract all vital neurovascular structures. All bleeders were ligated and cauterized as necessary. Next, a linear longitudinal incision was made and the capsulotomy was performed over the dorsal aspect of the first metatarsophalangeal joint. Periosteal and capsular structures were then reflected medially and laterally thus exposing the head of the first metatarsal. Using a bone saw, the dorsal prominence of the metatarsal head was resected, the medial eminence was then resected and passed from the operative field. Using a rongeur the dorsal medial and lateral prominences were removed from the base of the proximal phalanx as well. Next, a guidewire was placed centrally in the head of the first metatarsal. A size 20 reamer was used to reshape the metatarsal head and remove all cartilage. This was then performed on the base of the proximal phalanx as well. Any cartilage that was remaining was removed with a rongeur. The guidewires were removed. The site was then flushed with copious months of sterile saline. The head of the metatarsal and the base of the proximal phalanx was then fenestrated appropriately. Next, the metatarsal head and the base of the proximal phalanx were then compressed together and held in place with a K wire for temporary fixation. Appropriate placement was then confirmed using intraoperative fluoroscopy and the site was then fixated using a plate with 1 staple and screws as mentioned above. The fixation was then checked again and was noted to be appropriate with the first metatarsophalangeal joint slightly dorsiflexed with appropriate purchase of the hallux to a plate. Following fixation, the site was then flushed with copious amounts of sterile saline. The deep structures were reapproximated using 3-0 Vicryl. Subcutaneous tissue was reapproximated using 4-0 Vicryl. The skin was reapproximated and coapted using 4-0 nylon. The tourniquet was deflated then. Dressings were then applied with Xeroform gauze, 4 x 4, Kerlix and an Willian wrap. Patient tolerated procedure and anesthesia well with vital signs stable and vascular status intact to the right lower extremity. She was transferred to same-day for further monitoring. She is to be discharged home when stable. Pain medications were sent to the patient's pharmacy. Patient is to keep her right lower extremity elevated at all times. She is to rest ice and elevate. She is to keep her dressings intact. Apply a bag over the foot for showers. A cam boot was applied. Patient has an appointment for follow-up on .
--- NOTE | 2024-06-18 16:57 | DI.RAD_ITS ---
Exam(s) XR FOOT RT LIMITED EXAM: XR FOOT RT LIMITED CLINICAL HISTORY: Hallux rigidus, right foot TECHNIQUE: 2D and realtime digital imaging was performed. CONTRAST MATERIAL: Refer to procedure report. COMPARISON: No exams were available for comparison FINDINGS: Fluoroscopy was provided for Dr. Aparicio during the treatment of hallux rigidus. Please refer to the procedure report for complete details. Ka,r=0.19 mGy IMPRESSION: RADIATION DOSE DELIVERED: 0.0 0.0 0
--- NOTE | 2024-06-18 17:01 | W.ANESPOSTOP ---
Postoperative Evaluation Date, Time and Location Date Performed: 06/18/24 Time Performed: 16:55 Patient Location: Day Surgery Unit Vital Signs Most Recent Imported Vital Signs: Most Recent Vital Signs Temp Pulse Resp BP Pulse Ox 36.3 C L 71 16 132/70 97 06/18/24 09:32 06/18/24 09:32 06/18/24 09:32 06/18/24 09:32 06/18/24 09:32 Most Recent Manually Entered Vital Signs: Adult (16:52) Blood Pressure: 129/85 Heart Rate: 67 Respirations: 16 Oxygen Saturation (%): 96 Temperature (C): 36.1 C Pain Score (0-10 Scale): 0 Pain Score Most Recent Pain Score: Most Recent Pain Score Pain Level 0 06/18/24 09:32 Assessment Mental Status: Awake (Alert & Oriented to Patient Baseline) Airway and Respiratory Function: Patent airway with normal (patient baseline) respiratory exam Cardiovascular Function: Hemodynamically Stable Hydration Status: Adequately Hydrated Nausea & Vomiting: No Nausea or Vomiting Pain: Pt. Denies Any Pain Peripheral Nerve Block: Patient did not receive a nerve block
[2024-06-18 17:02] VITALS: BP 129/85; PULSE 67; RESP 16; TEMPC 36.1; O2SAT 96
[2024-06-18 17:20] VITALS: BP 152/71; PULSE 64; RESP 16; TEMP 36.4; O2SAT 98
[2024-06-18 18:20] VITALS: BP 120/52; PULSE 81; RESP 16; TEMP 36.4; O2SAT 96
--- NOTE | 2024-06-18 18:21 | DI.RAD_ITS ---
Exam(s) XR FOOT RT COMPLETE EXAM: XR FOOT RT COMPLETE CLINICAL HISTORY: Postop. TECHNIQUE: 2D digital imaging was performed of the right foot. Three images were obtained. AP, obl ique and lateral views were obtained. COMPARISON: CR XR FOOT RT COMPLETE from 04/16/2024 FINDINGS: BONES: No acute fracture is present. No bony destructive lesion is seen. There is a moderate size ent hesophyte at the posterior calcaneus. JOINTS: No dislocation present. The patient is now status post 1st MTP joint fusion. SOFT TISSUE: Normal. IMPRESSION: Status post 1st MTP joint fusion. DATA REPOSITORY: RADIATION DOSE DELIVERED:
== END 2024-06-18 18:43 | disposition home or self-care (01) ==
PROVIDERS: PCP Nurse Practitioner Adult Health; Visit Provider Podiatrist
PROC: (CPT 28750; principal; 2024-06-18 13:00)
DX: M20.21 Hallux rigidus, right foot (principal)
CPT/HCPCS: 28750; C1889; 00123; 76000; 73620; 73630; J0665; J0736; J1100; J2001; J2405; J2704

== ENCOUNTER → 2024-06-21 13:46 | Outpatient (BNVA) | payer MEDICARE, SELFPAY | PROVIDERS: PCP Nurse Practitioner Adult Health; Referring Provider Nurse Practitioner Adult Health; Visit Provider Podiatrist | DX: Z98.890 Other specified postprocedural states (principal); M79.671 Pain in right foot; M20.21 Hallux rigidus, right foot; R25.2 Cramp and spasm | CPT/HCPCS: 99024 ==

== ENCOUNTER 2024-06-28 01:23 | Outpatient (CLI) | payer MEDICARE, SELFPAY ==
--- NOTE | 2024-06-28 07:15 | DI.RAD_ITS ---
Exam(s) XR FOOT RT COMPLETE EXAM: XR FOOT RT COMPLETE CLINICAL HISTORY: post op M20.21 HALLUX RIGIDUS RT FOOT. TECHNIQUE: 2D digital imaging was performed. Three views. COMPARISON: CR XR FOOT RT COMPLETE from 06/18/2024 FINDINGS: BONES: No acute fracture is present. No bony destructive lesion is seen. First MTP joint fusion hard castro again noted. No change in alignment. Small enthesophytes. JOINTS: No dislocation present. SOFT TISSUE: Gauze remains in place on the dorsal aspect of the foot. There is mild swelling. IMPRESSION: No change in appearance of 1st MTP joint effusion hardware. DATA REPOSITORY: RADIATION DOSE DELIVERED:
== END 2024-06-28 01:43 ==
LOC: DI 01:23
PROVIDERS: PCP Nurse Practitioner Adult Health; Visit Provider Podiatrist
DX: M20.21 Hallux rigidus, right foot (principal)
CPT/HCPCS: 73630

== ENCOUNTER 2024-07-02 11:38 | Outpatient (REF) | payer MEDICARE, SELFPAY | END 2024-07-02 11:39 | disposition home or self-care (01) | LOC: LBN 11:38 | PROVIDERS: PCP Nurse Practitioner Adult Health; Visit Provider Nurse Practitioner | DX: R30.0 Dysuria (principal); R35.0 Frequency of micturition | CPT/HCPCS: 87077; 87086; 87186 ==

== ENCOUNTER → 2024-07-05 07:49 | Outpatient (BNVA) | payer MEDICARE, SELFPAY | PROVIDERS: PCP Nurse Practitioner Adult Health; Referring Provider Nurse Practitioner Adult Health; Visit Provider Nurse Practitioner Family | DX: Z98.890 Other specified postprocedural states (principal) | CPT/HCPCS: 99024 ==

== ENCOUNTER 2024-07-16 01:07 | Outpatient (CLI) | payer MEDICARE, SELFPAY ==
--- NOTE | 2024-07-16 06:45 | DI.RAD_ITS ---
Exam(s) XR FOOT RT COMPLETE EXAM: XR FOOT RT COMPLETE CLINICAL HISTORY: post-op pain,g89.18,hallux rigidus,m20.21. TECHNIQUE: 2D digital imaging was performed. COMPARISON: CR XR FOOT RT COMPLETE from 06/28/2024 FINDINGS: There is no evidence of acute fracture or diastasis of the Lisfranc joint. The dorsal fusion hardware across the great toe metatarsal phalangeal joint appears stable. There is not as yet complete fusion across this joint. Interphalangeal joint of the great toe appears unrema rkable. No evidence of bone erosion or osteomyelitis. No prominent soft tissue swelling. IMPRESSION: Stable appearance DATA REPOSITORY: RADIATION DOSE DELIVERED:
== END 2024-07-16 01:27 ==
LOC: DI 01:07
PROVIDERS: PCP Nurse Practitioner Adult Health; Visit Provider Podiatrist
DX: G89.18 Other acute postprocedural pain (principal); M20.21 Hallux rigidus, right foot
CPT/HCPCS: 73630

== ENCOUNTER 2024-08-07 00:53 | Outpatient (CLI) | payer MEDICARE, SELFPAY ==
--- NOTE | 2024-08-07 06:30 | DI.RAD_ITS ---
Exam(s) XR FOOT RT COMPLETE EXAM: XR FOOT RT COMPLETE CLINICAL HISTORY: ? consolidation,hallux rigidus rt foot,m20.21. TECHNIQUE: 2D digital imaging was performed. Three views. COMPARISON: CR XR FOOT RT COMPLETE from 04/16/2024 CR XR FOOT RT COMPLETE from 06/18/2024 CR XR FOOT RT COMPLETE from 07/16/2024 FINDINGS: BONES: No acute fracture is present. No bony destructive lesion is seen. Stable appearance fusion dotson rdware across the 1st MTP joint. JOINTS: No dislocation present. SOFT TISSUE: Normal. IMPRESSION: Stable postoperative appearance. DATA REPOSITORY: RADIATION DOSE DELIVERED:
== END 2024-08-07 01:13 ==
LOC: DI 00:53
PROVIDERS: PCP Nurse Practitioner Adult Health; Visit Provider Podiatrist
DX: M20.21 Hallux rigidus, right foot (principal); Z98.890 Other specified postprocedural states
CPT/HCPCS: 73630

== ENCOUNTER 2024-08-29 01:35 | Outpatient (CLI) | payer MEDICARE, SELFPAY ==
--- NOTE | 2024-08-29 06:30 | DI.RAD_ITS ---
Exam(s) XR FOOT RT COMPLETE EXAM: XR FOOT RT COMPLETE CLINICAL HISTORY: Postop,hallux rigidus rt foot,m20.21. TECHNIQUE: 2D digital imaging was performed. Three views. COMPARISON: CR XR FOOT RT COMPLETE from 08/07/2024 FINDINGS: BONES: Postsurgical changes with hardware in place are again noted across the 1st metatarsal phalange al joint. There is increased bony bridging. No new abnormalities. No acute fracture is present. No bony destructive lesion is seen. SOFT TISSUE: Normal. IMPRESSION: Stable postsurgical changes at the 1st metatarsal phalangeal joint. DATA REPOSITORY: RADIATION DOSE DELIVERED:
== END 2024-08-29 01:55 ==
LOC: DI 01:35
PROVIDERS: PCP Nurse Practitioner Adult Health; Visit Provider Podiatrist
DX: M20.21 Hallux rigidus, right foot (principal); Z98.890 Other specified postprocedural states
CPT/HCPCS: 29580; 29850; 73630

== ENCOUNTER 2024-09-27 01:15 | Outpatient (CLI) | payer MEDICARE, SELFPAY ==
--- NOTE | 2024-09-27 06:30 | DI.RAD_ITS ---
Exam(s) XR FOOT RT COMPLETE EXAM: XR FOOT RT COMPLETE CLINICAL HISTORY: ? consolidated,hallux rigidus rt foot,m20.21. TECHNIQUE: 2D digital imaging was performed of the right foot. Three images were obtained. AP, obl ique and lateral views were obtained. COMPARISON: CR XR FOOT RT COMPLETE from 08/29/2024 FINDINGS: BONES: No acute fracture is present. No bony destructive lesion is seen. There is a small enthesophyt e at the posterior calcaneus. JOINTS: No dislocation present. There again seen postsurgical changes of a 1st MTP joint fusion. The orthopedic hardware appears intact. The joint space is no longer visualized. Joint spaces in the f oot are otherwise well maintained. SOFT TISSUE: Normal. IMPRESSION: Stable 1st MTP joint fusion. DATA REPOSITORY: RADIATION DOSE DELIVERED:
== END 2024-09-27 01:35 ==
LOC: DI 01:15
PROVIDERS: PCP Nurse Practitioner Adult Health; Visit Provider Podiatrist
DX: M20.21 Hallux rigidus, right foot (principal)
CPT/HCPCS: 73630

== ENCOUNTER 2024-11-01 02:41 | Outpatient (CLI) | payer MEDICARE, SELFPAY ==
--- NOTE | 2024-11-01 07:00 | DI.RAD_ITS ---
Exam(s) XR FOOT RT COMPLETE EXAM: XR FOOT RT COMPLETE CLINICAL HISTORY: ? Completely consolidated,hallus rigidus rt foot,m20.21. TECHNIQUE: 2D digital imaging was performed. COMPARISON: CR XR FOOT RT COMPLETE from 09/27/2024 FINDINGS: 3 views No evidence of fracture or diastasis of the Lisfranc joint. Again noted is dorsal fusion hardware across the great toe metatarsal phalangeal joint with osseous f usion across is articulation again evident. No evidence of loosening of the hardware at this level n or evidence of osteomyelitis. No hardware fracture or migration. Small enthesophyte again noted on the posterior calcaneus Achilles insertion site. IMPRESSION: Continued stable appearance at the great toe metatarsophalangeal joint fusion site DATA REPOSITORY: RADIATION DOSE DELIVERED:
== END 2024-11-01 03:01 ==
PROVIDERS: PCP Nurse Practitioner Adult Health; Visit Provider Podiatrist
DX: M20.21 Hallux rigidus, right foot (principal)
CPT/HCPCS: 73630

== ENCOUNTER 2024-11-08 02:48 | Outpatient (CLI) | payer MEDICARE, SELFPAY ==
--- NOTE | 2024-11-08 07:45 | DI.CT_ITS ---
Exam(s) CT LOWER EXTREMITY RT WO EXAM: CT LOWER EXTREMITY RT WO CLINICAL HISTORY: ? FUSED,HALLUX RIGIDUS RT FOOT, N20.21. TECHNIQUE: Imaging Protocol: Axial computed tomography images with coronal and sagittal reformatted images were created and reviewed. CONTRAST MATERIAL: Intravenous: Omnipaque 350 Contrast volume:structured data in ml Contrast route:I V - Oral: yes / no COMPARISON: CR XR FOOT RT COMPLETE from 11/01/2024 FINDINGS: OSSEOUS: There is dorsal fusion hardware across the great toe metatarsophalangeal joint. There is no evidence of loosening nor fracture or nor migration of the hardware nor radiographic evidence of osteomyeliti s. There is elimination of the joint space of the great toe metatarsophalangeal joint and there does arthur ear to be developing osseous fusion across this articulation. The articular surfaces are still faint ly visible but there does appear to be some effusion evident. The subjacent two sesamoid bones appear unremarkable. SOFT TISSUES: There is no air-gas in the soft tissues nor radiopaque foreign bodies. No evident of t he soft tissue abscess. IMPRESSION: There does appear to be an element of fusion across the great toe metatarsophalangeal joint RADIATION DOSE DELIVERED: 82.24mGy.cm Total DLP DATA REPOSITORY: All CT scans at this facility are submitted to the National Radiology Data Registry (NRDR) Dose Index Registry (DIR) with the [employer] ([employer]). RADIATION OPTIMIZATION: All CT scans at this facility use at least one of these dose optimization te chniques: automated exposure control; mA and/or kV adjustment per patient size (includes targeted exa ms where dose is matched to clinical indication); or iterative reconstruction.
== END 2024-11-08 03:08 ==
LOC: DI 02:48
PROVIDERS: PCP Nurse Practitioner Adult Health; Visit Provider Podiatrist
DX: M20.21 Hallux rigidus, right foot (principal)
CPT/HCPCS: 73700

== ENCOUNTER 2024-11-13 00:48 | Outpatient (CLI) | payer MEDICARE, SELFPAY ==
[2024-11-13 12:13] LABS: ALT 75 U/L (14-59); AST 49 U/L (15-37); Albumin 3.8 g/dL (3.4-5.0); Alkaline Phosphatase 132 U/L (46-116); Anion Gap 10.5 mmol/L (3-11); BUN 15 mg/dL (7-18); Bilirubin, Total 0.48 mg/dL (0.2-1.0); CO2 24.5 mmol/L (21.0-32.0); CREATININE 0.7 mg/dL (0.55-1.02); Calcium 9.3 mg/dL (8.5-10.1); Calculated LDL 103 mg/dL (<100); Chloride 104 mmol/L (98-107); Cholesterol 210 mg/dL (<200); Estimated GFR 94.15 (mL/min/1.73m2); Glucose 92 mg/dL (74-106); HDL Cholesterol 98 mg/dL (40-60); Potassium 3.8 mmol/L (3.5-5.1); Sodium 139 mmol/L (136-145); Total Protein 7.4 g/dL (6.4-8.2); Triglyceride 49 mg/dL (<150)
== END 2024-11-13 00:49 | disposition home or self-care (01) ==
PROVIDERS: PCP Nurse Practitioner Adult Health; Referring Provider Nurse Practitioner Adult Health; Visit Provider Nurse Practitioner Adult Health
DX: Z13.6 Encounter for screening for cardiovascular disorders (principal); Z13.1 Encounter for screening for diabetes mellitus
CPT/HCPCS: 36415; 80053; 80061

== ENCOUNTER 2024-11-29 00:38 | Outpatient (CLI) | payer MEDICARE, SELFPAY ==
--- NOTE | 2024-11-29 07:30 | DI.MAMMO_ITS ---
Exam(s) MAMMO SCREENING EXAM: MAMMO SCREENING CLINICAL HISTORY: screening,z12.39 TECHNIQUE: Bilateral full field digital CC and MLO mammographic images were obtained with 3D tomosyn thesis and utilizing computer aided detection (CAD). COMPARISON: Available for comparison. FINDINGS: Masses/Architectural Distortion: None seen. Microcalcifications: No suspicious pleomorphic-type are seen. Skin Thickening/Nipple Retraction: None. IMPRESSION: 1. No significant interval change with no specific features of malignancy noted. 2. Unless there is more urgent need, screening mammography is recommended, as per [employer] guidelines. BI-RADS Category 1 - Negative Breast Density - Category B - Scattered areas of fibroglandular density Breast density category C or D implies that the patient has dense breast tissue. Dense breast tissue is very common and is not abnormal but dense breast tissue can make it harder to find cancer on a ma mmogram. Also, dense breast tissue may increase their breast cancer risk. This information about the result of the mammogram report was provided to the patient to raise their awareness. Use this report when you speak with the patient about their risks for breast cancer, which includes their family hist ory. At that time, you may recommend for more screening tests (Ultrasound or MRI) as they might be us eful based on their risk. A negative radiographic report should not delay biopsy if a dominant or clinically suspicious mass is present. Up to ten percent of cancers are not identified on mammography. A negative report may reinforce clinical impression. Adenosis and dense breasts may obscure an underlying neoplasm. False positive reports average 6 to 10%. Patient will receive a letter notifying them of these results.
== END 2024-11-29 00:58 ==
LOC: DI 00:39
PROVIDERS: PCP Nurse Practitioner Adult Health; Visit Provider Nurse Practitioner Adult Health
DX: Z12.31 Encounter for screening mammogram for malignant neoplasm of breast (principal); R92.323 Mammographic fibroglandular density, bilateral breasts
CPT/HCPCS: 77063; 77067

== ENCOUNTER → 2024-12-13 08:25 | Outpatient (BNVA) | payer MEDICARE, SELFPAY | PROVIDERS: PCP Nurse Practitioner Adult Health; Referring Provider Nurse Practitioner Adult Health; Visit Provider Podiatrist | DX: Z98.890 Other specified postprocedural states (principal); M20.21 Hallux rigidus, right foot; G89.18 Other acute postprocedural pain; M79.671 Pain in right foot; R25.2 Cramp and spasm | CPT/HCPCS: 99214 ==

== ENCOUNTER → 2024-12-13 08:48 | Outpatient (BNVA) | payer MEDICARE, SELFPAY | PROVIDERS: PCP Nurse Practitioner Adult Health; Referring Provider Nurse Practitioner Adult Health; Visit Provider Student in an Organized Health Care Education/Training Program | DX: Z12.11 Encounter for screening for malignant neoplasm of colon (principal); Z86.0101 Personal history of adenomatous and serrated colon polyps ==

== ENCOUNTER 2024-12-17 11:52 | Outpatient (CLI) | payer MEDICARE, SELFPAY ==
--- NOTE | 2024-12-17 11:00 | DI.RAD_ITS ---
Exam(s) XR CHEST 2V PA LATERAL EXAM: XR CHEST 2V PA LATERAL CLINICAL HISTORY: R05.3,R12, Chronic cough, Heartburn; r/o acute process (low suspicion) TECHNIQUE: 2D digital imaging was performed of the chest. Two images were obtained. PA and lateral views were obtained. COMPARISON: CR,XR XR CHEST 2V PA LATERAL from 10/28/2022 FINDINGS: MEDIASTINUM: Normal. HEART: Normal. PULMONARY VASCULATURE: Normal. LUNGS: Clear. PLEURAL SPACE: No pleural effusion or pneumothorax. BONE:Within normal limits for the patient's age. OTHER FINDINGS:Normal. IMPRESSION: No acute pulmonary findings. DATA REPOSITORY: RADIATION DOSE DELIVERED:
== END 2024-12-17 12:12 ==
LOC: DI 11:53
PROVIDERS: PCP Nurse Practitioner Adult Health; Visit Provider Nurse Practitioner Adult Health
DX: R05.3 Chronic cough (principal); R12 Heartburn
CPT/HCPCS: 71046

== ENCOUNTER 2024-12-28 07:27 | Day surgery (SDC) | payer MEDICARE, SELFPAY ==
[2024-12-28 08:01] VITALS: BP 121/82; PULSE 72; RESP 20; TEMP 36.3; O2SAT 97
[2024-12-28] MEDS: Lactated Ringers 1,000 ML 80 ML IV (08:10)
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
--- NOTE | 2024-12-28 09:24 | PDOC.DSDIS_ITS ---
Date of service: 12/28/24 Discharge Plan Disposition Patient Disposition: Home Condition: Good Discharge Details Reason For Visit: Screening colonoscopy Attending Provider: Deng Hawk Primary Care Provider: Reena Kumar Home Meds and New Rx's Prescriptions: Continued cholecalciferol (vitamin D3) 50 mcg (2,000 unit) capsule 50 mcg PO DAILY omeprazole 20 mg capsule,delayed release(DR/EC) 20 mg PO .daily in AM Qty: 90 0RF Rx Instructions: Take on an empty stomach in the morning, approx 30 min apart from meds, food, fluid for heartburn. meclizine 12.5 mg tablet 12.5 - 25 mg PO BID MDD 100 mg PRN (Reason: vertigo) Qty: 30 0RF Patient Comments: last use was over a year ago Rx Instructions: May increase to 50 mg per dose if 12.5-25 mg is not effective ondansetron 4 mg tablet,disintegrating 4 mg PO TID PRN (Reason: nausea and vomiting) Qty: 15 0RF Patient Comments: 6 months ago cyclosporine [Restasis] 0.05 % Dropperette 1 drp OPHTHALMIC (EYE) Q12H Discontinued polyethylene glycol 3350 17 gram/dose powder 238 g PO ONCE Qty: 238 0RF Rx Instructions: take per colonoscopy instructions bisacodyl [Dulcolax (bisacodyl)] 5 mg tablet,delayed release (DR/EC) 5 mg PO ONCE Qty: 4 0RF Rx Instructions: take per colonoscopy instructions Discharge Instructions Instructions: Colon polyps, Diverticulosis Additional Instructions: Shannan, was very nice meeting you today, and I hope you make a quick recovery after your procedure. Everything went very smoothly. I did find to remove polyp in your rectum today. It was medium in size, but none of the features were particularly worrisome to the naked eye. This polyp we sent off for testing since polyps 2, different varieties, we use the information from the polyp analysis to guide the timing of future colonoscopies. Those results usually take about a week or 2, but once my office has them, we will be in touch. This polyp was relatively close to your anus, so I would not be surprised if you have a little bit of blood in your first couple stools. That is nothing to be alarmed about. Incidentally, you also have some diverticulosis as you knew. My general recommendations for patients with diverticular disease is to maintain a diet that is rich in fiber, stay well-hydrated, and avoid symptoms of constipation. Will attach some basic information here about di verticulosis as well as colon polyps. If you have any questions at all, please do not hesitate to ask, otherwise we will let you know once we have the polyp report complete. 1. If tolerated, consume a soft, low fiber diet for 1-2 days. 2[address] Do not drive, drink alcohol, operate machinery, make critical decisions, or do activities that require coordination or balance for 24 hours. 3. Because air was put into your colon during the procedure, expelling air from your rectum (passing gas or farting) is normal. 4. You may not have a bowel movement for 1-3 days because of the colonoscopy prep. This is normal. 5. Go directly to the emergency room if you notice any of the following: Develop chills (warm to touch), or if you have a thermometer and your temperature is above 101 Difficulty breathing or difficultly swallowing Persistent vomiting Severe abdominal pain, other than gas cramps Severe chest pain Black, tarry stools Any bleeding ? exceeding one tablespoon 6. Call your physician if the site where your intravenous was started becomes red, swollen, painful, and warm to touch. 7. Your physician has reviewed your pre-procedure medications. Please continue to take those medications as previously ordered. You will be given specific information/education regarding any changes to your medications before leaving. Activity:: Activity as Tolerated Diet:: As Tolerated DS: Diagnosis Discharge Diagnosis (1) Encounter for screening colonoscopy: Status: Acute Asessment and Plan: Follow-up on polypectomy results
--- NOTE | 2024-12-28 09:25 | W.COLOREPORT ---
Date of service: 12/28/24 Time of Service: 10:02 Colonoscopy Report Date of procedure: 12/28/24 Pre-op diagnosis general: Screening colonoscopy Post-op diagnosis procedure note: same Procedure: Colonoscopy with polypectomy Surgeon: Deng Hawk Anesthesia Type: General:No Airway Estimated blood loss (mL): 5 Pathology: other (0.5 cm pedunculated rectal polyp) Complications: None Disposition: same day Indications: Shannan is a 69-year-old woman with a history of adenomatous polyps. She is here for her next screening colonoscopy. Prep: Miralax/Dulcolax Procedure Start Time: 09:37 Procedure End Time: 09:53 Retraction Time: 6 Findings: 0.5 cm pedunculated rectal polyp Procedure Description: After the induction of anesthesia, and with the patient in left lateral decubitus position, I began by performing an external anorectal exam.? Perineum and skin were normal, as was the anal verge.? There was no evidence of external hemorrhoids.? Next, I performed a digital rectal exam.? I did not appreciate any abnormal findings.? Next, I advanced a colonoscope into the rectal vault.? I performed retroflexion. This appeared normal.? Within the midportion of the rectum was a 0.5 cm mostly pedunculated polyp. This was removed with snare polypectomy. There was minimal bleeding from the site. Resection was complete, and the specimen was retrieved. Using insufflation, I then advanced the colonoscope beyond the rectal folds and into the sigmoid colon before advancing towards the cecum.? The quality of the prep was excellent.? The scope was noted to be in the cecum by identification of the ileocecal valve and appendiceal orifice.? I then began withdrawing the colonoscope using repeated irrigation as necessary for full evaluation of the colonic mucosa. There is sigmoid diverticulosis. ?Once the scope was withdrawn to the level of the rectum, great care was taken to examine portions of the rectal folds.? finally, the scope was withdrawn and the patient was brought to the same-day surgery recovery unit as the anesthetic wore off. ?The findings and instructions were shared with the patient prior to discharge. Shelby Bowel Prep Shelby Bowel Prep Right Colon: 3 Left Colon: 3 Transverse Colon: 3 Total Score: 9
--- NOTE | 2024-12-28 09:41 | BOWEL_PTH ---
PATIENT: Jewels Jimenez LOC: [facility] U#:[id number] AGE/SX: 69/F ROOM: RE12/28/[address]: Deng Hawk MD : [id number] BED: DIS: 12/28/2024 SPEC #: [id number] RECD: 12/28/24 12:42 STATUS: LEODAN REQ #: [id number] MICKEY: 12/28/24 09:[address]: Deng Hawk DEPT: Surgical Specimen RECD BY: Rosalia Delacruz ENTERED: 12/28/24 12:43 SP TYPE: Bowel OTHR DR: Reena Kumar, ADELE Tissues: 1 - BIOPSY BOWEL Procedures: GROSS AND MICRO LEVEL 4 Comments: [id number]
[2024-12-28 09:57] VITALS: BP 108/61; PULSE 65; RESP 16; TEMP 36.1; O2SAT 97
[2024-12-28 09:59] VITALS: BMI 27.4
[2024-12-28 10:26] VITALS: BP 113/81; PULSE 71; RESP 16; TEMP 36.2; O2SAT 100
--- NOTE | 2024-12-28 15:28 | W.ANESPOSTOP ---
Postoperative Evaluation Date, Time and Location Date Performed: 12/28/24 Time Performed: 15:28 Patient Location: Day Surgery Unit Vital Signs Most Recent Imported Vital Signs: Most Recent Vital Signs Temp Pulse Resp BP Pulse Ox 36.2 C L 71 16 113/81 100 12/28/24 10:26 12/28/24 10:26 12/28/24 10:26 12/28/24 10:12/28/24 10:26 Pain Score Most Recent Pain Score: Most Recent Pain Score Pain Level 0 12/28/24 10:26 Assessment Mental Status: Awake (Alert & Oriented to Patient Baseline) Airway and Respiratory Function: Patent airway with normal (patient baseline) respiratory exam Cardiovascular Function: Hemodynamically Stable Hydration Status: Adequately Hydrated Nausea & Vomiting: No Nausea or Vomiting Pain: Pt. Denies Any Pain Peripheral Nerve Block: Patient did not receive a nerve block
== END 2024-12-28 10:38 | disposition home or self-care (01) ==
PROVIDERS: PCP Nurse Practitioner Adult Health; Visit Provider Surgery
PROC: 0DJD8ZZ Inspection of Lower Intestinal Tract, Via Natural or Artificial Opening Endoscopic (ICD-10-PCS; CPT 45378; principal; 2024-12-28 09:00)
DX: Z12.11 Encounter for screening for malignant neoplasm of colon (principal); D12.8 Benign neoplasm of rectum; Z86.0101 Personal history of adenomatous and serrated colon polyps
CPT/HCPCS: 45385; 88305; J2704

== ENCOUNTER 2025-02-15 09:20 | Outpatient (REF) | payer MEDICARE, SELFPAY | END 2025-02-15 09:21 | disposition home or self-care (01) | LOC: LBN 09:20 | PROVIDERS: PCP Nurse Practitioner Adult Health; Visit Provider Family Medicine | DX: R30.0 Dysuria (principal); R82.89 Other abnormal findings on cytological and histological examination of urine; B96.29 Other Escherichia coli [E. coli] as the cause of diseases classified elsewhere | CPT/HCPCS: 87086 ==

== ENCOUNTER 2025-02-15 09:24 | Outpatient (CLI) | payer MEDICARE, SELFPAY ==
[2025-02-15 10:20] LABS: ALT 84 U/L (14-59); AST 53 U/L (15-37); Albumin 4.1 g/dL (3.4-5.0); Alkaline Phosphatase 172 U/L (46-116); Bilirubin, Direct 0.2 mg/dL (0.0-0.2); Bilirubin, Total 0.6 mg/dL (0.2-1.0); Total Protein 7.5 g/dL (6.4-8.2)
== END 2025-02-15 09:25 | disposition home or self-care (01) ==
LOC: LBO 09:24
PROVIDERS: PCP Nurse Practitioner Adult Health; Visit Provider Nurse Practitioner Family
DX: R74.01 Elevation of levels of liver transaminase levels (principal); R30.0 Dysuria; R10.9 Unspecified abdominal pain
CPT/HCPCS: 36415; 80076; 87077; 87086; 87186

== ENCOUNTER → 2025-02-21 08:23 | Outpatient (BNVA) | payer MEDICARE, SELFPAY | PROVIDERS: PCP Nurse Practitioner Adult Health; Referring Provider Nurse Practitioner Adult Health; Visit Provider Podiatrist | DX: M20.21 Hallux rigidus, right foot (principal); M79.671 Pain in right foot; N39.0 Urinary tract infection, site not specified; Z98.890 Other specified postprocedural states; R60.0 Localized edema; R25.2 Cramp and spasm | CPT/HCPCS: 29580; 29850 ==

== ENCOUNTER 2025-02-27 10:50 | Emergency (ER) | payer MEDICARE, SELFPAY ==
[2025-02-27 10:52] VITALS: BP 157/91; PULSE 71; RESP 16; TEMP 36.7; O2SAT 96
[2025-02-27 11:03] VITALS: BP 157/91; PULSE 71; RESP 16; TEMP 36.7; O2SAT 96
[2025-02-27 11:13] LABS: Bilirubin Negative (Negative); Blood Negative (Negative); Clarity Clear (Clear); Glucose Negative (Negative); Ketones Negative (Negative); Leukocyte Esterase Small (Negative); Nitrite Negative (Negative); Urobilinogen 0.2 mg/dL (Up to 0.2)
--- NOTE | 2025-02-27 11:15 | DI.CT_ITS ---
Exam(s) CT ABDOMEN PELVIS W EXAM: CT ABDOMEN PELVIS W CLINICAL HISTORY: bilateral flank and LLQ pain TECHNIQUE: Imaging Protocol: Axial computed tomography images with coronal and sagittal reformatted images were created and reviewed. CONTRAST MATERIAL: Intravenous: Omnipaque 350 Contrast volume:75 mL Oral: No COMPARISON: CT CT ABDOMEN PELVIS W from 04/08/2021 FINDINGS: ABDOMEN: Lung Bases: There is a tiny left pleural effusion. Liver: Normal density. No measurable mass. Portal, Superior Mesenteric, and Splenic Veins: Unremarkable. Gallbladder and Biliary Tract: Status post cholecystectomy. No significant biliary ductal dilatation is present. Pancreas: Normal density, no abnormal calcifications or inflammatory process. Spleen: Normal. Adrenals: No masses seen. Kidneys: Normal size, contour and axis. No radiodense stones or obstructive uropathy. There are few s mall hypodense lesions seen in the kidneys. They are too small for further characterization but like ly reflect small cysts. No follow-up is recommended. Abdominal Aorta: Abdominal portion non-dilated. Atherosclerotic calcification is present. Bowel: There is diverticulosis of the colon without evidence of acute diverticulitis. There is no ev idence of bowel obstruction or bowel wall thickening. Appendix is unremarkable. Peritoneal Cavity: No ascites, collection or mesenteric inflammatory response. No free air. Lymph Nodes: Within normal limits. Bones: Within normal limits for the patient's age. Soft Tissues: Unremarkable. PELVIS: Bladder: Symmetric distention, no gross wall thickening. Reproductive Organs: Unremarkable as visualized. Stable 2.3 cm right ovarian cyst. Lymph Nodes: Within normal limits. Bones: Within normal limits for the patient's age. IMPRESSION: 1. No acute abdominal or pelvic process. 2. No evidence of nephrolithiasis or hydronephrosis. 3. Colonic diverticulosis without evidence of acute diverticulitis. 4. Tiny left pleural effusion. RADIATION DOSE DELIVERED: 480.14mGy.cm Total DLP DATA REPOSITORY: All CT scans at this facility are submitted to the National Radiology Data Registry (NRDR) Dose Index Registry (DIR) with the [employer] (A[employer]). RADIATION OPTIMIZATION: All CT scans at this facility use at least one of these dose optimization te chniques: automated exposure control; mA and/or kV adjustment per patient size (includes targeted exa ms where dose is matched to clinical indication); or iterative reconstruction.
[2025-02-27 11:19] LABS: Bacteria Few HPF (Negative); C & S Indicated? No; Casts Negative LPF (Negative); Crystals Negative HPF (Negative); Epithelial Cells Few HPF (Negative); Mucus Trace (Negative); RBC Negative HPF (0-2)
[2025-02-27 11:31] LABS: Abs Immature Grans 0.01 10^3/uL (0.0-0.06); Absolute Basophil Count 0.04 10^3/uL (0.0-0.2); Absolute Lymphocyte Count 1.54 10^3/uL (1.2-3.4); Absolute Monocyte Count 0.55 10^3/uL (0.1-0.8); Absolute Neutrophil Count 3.87 10^3/uL (1.2-6.7); Basophils % 0.6 %; Eosinophils % 3.2 %; HCT 38.9 % (36.0-46.0); HGB 13.1 g/dL (11.2-15.7); Immature Grans % 0.2 %; Lymphocytes % 24.8 %; MCH 29.5 pg (27.0-33.0); MCHC 33.7 % (32.0-36.0); MCV 88 fL (80-95); MPV 10.7 fL (8.0-11.0); Monocytes % 8.9 %; Neutrophils % 62.3 %; Platelet Count 252 10^3/uL (130-400); RBC 4.44 10^6/uL (3.93-5.22); RDW 12.2 % (11.7-14.6); RDW-SD 39.3 fL; WBC 6.21 10^3/uL (4.4-10.8)
[2025-02-27 11:56] LABS: ALT 58 U/L (14-59); AST 28 U/L (15-37); Albumin 3.7 g/dL (3.4-5.0); Alkaline Phosphatase 166 U/L (46-116); Anion Gap 8.8 mmol/L (3-11); BUN 13 mg/dL (7-18); Bilirubin, Total 0.5 mg/dL (0.2-1.0); CO2 25.2 mmol/L (21.0-32.0); CREATININE 0.6 mg/dL (0.55-1.02); Calcium 9.5 mg/dL (8.5-10.1); Chloride 106 mmol/L (98-107); Estimated GFR 97.71 (mL/min/1.73m2); Glucose 93 mg/dL (74-106); Lipase 30 U/L (<78); Potassium 3.9 mmol/L (3.5-5.1); Sodium 140 mmol/L (136-145); Total Protein 7.1 g/dL (6.4-8.2)
[2025-02-27] MEDS: Normal Saline - Diluent 50 ML VIAL IJ (12:44)
[2025-02-27] MEDS: Omnipaque 350 MG/ML 100 ML BTL 75 ML IJ (12:45)
[2025-02-27 13:07] VITALS: BP 137/86; PULSE 66; O2SAT 97
[2025-02-27 14:23] VITALS: BP 132/81; PULSE 68; RESP 16; O2SAT 99
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
== END 2025-02-27 14:22 | disposition home or self-care (01) ==
PROVIDERS: Emergency Provider Physician Assistant; PCP Nurse Practitioner Adult Health
DX: R10.32 Left lower quadrant pain (principal)
CPT/HCPCS: 36415; 80053; 83690; 99285; 74177; 81003; 81015; 85025; 99284; J3490

== ENCOUNTER 2025-03-21 01:13 | Outpatient (CLI) | payer MEDICARE, SELFPAY ==
--- NOTE | 2025-03-21 10:33 | DI.RAD_ITS ---
Exam(s) XR FOOT RT COMPLETE EXAM: XR FOOT RT COMPLETE CLINICAL HISTORY: Acquired hallux rigidus of rt foot, rt foot pain, M20.21, M79.671, Fused?. TECHNIQUE: 2D digital imaging was performed of the right foot. Three images were obtained. AP, oblique and lateral views were obtained. COMPARISON: CR XR FOOT RT COMPLETE from 11/01/2024 FINDINGS: BONES: There are stable postsurgical changes of a 1st MTP joint fusion. The joint appears well fused. There is no acute fracture or dislocation. No bony destructive lesion is seen. There is an enthesophyte at the posterior calcaneus. JOINTS: No dislocation present. The joint spaces are well maintained. SOFT TISSUE: Normal. IMPRESSION: No acute abnormality. Stable postsurgical changes of the 1st MTP joint. DATA REPOSITORY: RADIATION DOSE DELIVERED:
== END 2025-03-21 01:33 ==
LOC: DI 01:13
PROVIDERS: PCP Nurse Practitioner Adult Health; Visit Provider Podiatrist
DX: M20.11 Hallux valgus (acquired), right foot (principal); M79.671 Pain in right foot
CPT/HCPCS: 73630

== ENCOUNTER 2025-04-16 01:47 | Outpatient (CLI) | payer MEDICARE, SELFPAY ==
--- NOTE | 2025-04-16 13:13 | DI.RAD_ITS ---
Exam(s) XR TOE RT SECOND EXAM: XR TOE RT SECOND CLINICAL HISTORY: monitor fracture,rt toe fx,[id number]. TECHNIQUE: 2D digital imaging was performed. COMPARISON: CR XR FOOT RT COMPLETE from 03/21/2025 FINDINGS: 3 views Again noted is the dorsal fusion hardware across the great toe metatarsophalangeal joint and this articulation appears well fused. No evidence of hardware loosening nor radiographic evidence of osteomyelitis. The interphalangeal joint of the great toe remains unremarkable in appearance and the 1st tarsometatarsal joint appears unremarkable as does the main Lisfranc joint. IMPRESSION: Stable satisfactory appearance of the hardware and fused articulation of the great toe metatarsophalangeal joint. No fractures nor evidence of osteomyelitis. No since of hardware loosening nor hardware migration. DATA REPOSITORY: RADIATION DOSE DELIVERED:
== END 2025-04-16 02:07 ==
LOC: DI 01:47
PROVIDERS: PCP Nurse Practitioner Adult Health; Visit Provider Podiatrist
DX: S92.514D Nondisplaced fracture of proximal phalanx of right lesser toe(s), subsequent encounter for fracture with routine healing (principal); M20.21 Hallux rigidus, right foot; R25.2 Cramp and spasm; G89.18 Other acute postprocedural pain; X58.XXXD Exposure to other specified factors, subsequent encounter; Z98.890 Other specified postprocedural states; R60.0 Localized edema
CPT/HCPCS: 99213; 73660

== ENCOUNTER 2025-05-21 13:22 | Outpatient (CLI) | payer MEDICARE, SELFPAY ==
--- NOTE | 2025-05-21 14:20 | DI.RAD_ITS ---
Exam(s) XR FOOT RT COMPLETE EXAM: XR FOOT RT COMPLETE CLINICAL HISTORY: ? hardware mvmt (1st MPJ) f/u R 2nd toe fx,SWELLING SURGICAL SITE,RT TOE. TECHNIQUE: 2D digital imaging was performed. Three views. COMPARISON: CR XR TOE RT SECOND from 04/16/2025 FINDINGS: BONES: No acute fracture is present. No bony destructive lesion is seen. Small calcaneal enthesophyte. JOINTS: No dislocation present. Hardware is again noted spanning the 1st MTP joint. The alignment is unchanged. There appears to be bony fusion across the joint. SOFT TISSUE: Normal. IMPRESSION: No evidence of hardware migration or loosening. DATA REPOSITORY: RADIATION DOSE DELIVERED:
== END 2025-05-21 13:42 ==
LOC: DI 13:22
PROVIDERS: PCP Nurse Practitioner Adult Health; Visit Provider Podiatrist
DX: S92.514D Nondisplaced fracture of proximal phalanx of right lesser toe(s), subsequent encounter for fracture with routine healing (principal); M20.21 Hallux rigidus, right foot; G89.18 Other acute postprocedural pain; R60.0 Localized edema; R25.2 Cramp and spasm; Z98.890 Other specified postprocedural states; X58.XXXD Exposure to other specified factors, subsequent encounter
CPT/HCPCS: 99213; 73630

== ENCOUNTER 2025-06-18 04:34 | Emergency (ER) | payer MEDICARE, SELFPAY ==
--- NOTE | 2025-06-18 04:30 | RT.EKG_ITS ---
APPROVED REPORT Exam: Resting ECG Reason for Exam: L shoulder/kneck/back pain Patient Location: E HR:71 bpm ECG Measurements Heart Rate 71 AXIS PA 138 P 25 QRSd 99 QRS -3 QT 438 T 63 QTc 475 Conclusion Sinus rhythm...normal P axis, V-rate 60- 99 I have reviewed and interpreted ECG and agree with software generated interpretation.
[2025-06-18 04:39] VITALS: BP 173/85; PULSE 82; RESP 18; O2SAT 97
--- NOTE | 2025-06-18 04:45 | DI.CT_ITS ---
Exam(s) CT THORAX ABD/PEL CTA EXAM: CT THORAX ABD/PEL CTA CLINICAL HISTORY: L flank pain, shooting up to chest and neck. TECHNIQUE: Imaging Protocol: Axial computed tomography images with coronal and sagittal reformatted images were created and reviewed CONTRAST MATERIAL: Intravenous: Omnipaque 350 Contrast volume:125 cc Oral: None COMPARISON: CT CT ABDOMEN PELVIS W from 02/27/2025 FINDINGS: CHEST: AORTA: The diameter of the ascending thoracic aorta is within normal limits. Aortic arch and descending thoracic aorta also within normal limits size and there is no evidence of dissection nor pericardial effusion. Aortic arch anatomy is conventional and there is no evidence of significant stenosis nor intimal flap at the origin of the great vessels off of the arch. The abdominal aorta exhibits no evidence of significant aneurysm. Celiac and superior mesenteric as well as inferior mesenteric arteries are patent. There is no significant stenosis at the origin of the solitary bilateral renal arteries. The aortoiliac segments are patent without significant stenosis nor significant aneurysmal dilatation. No evidence of intimal flaps in the iliac vessels. No evidence of common femoral artery aneurysms. LUNGS: No confluent infiltrates nor pleural effusions. Some platelike atelectasis noted in the lingular segment of the left lung. No significant focal findings in the trachea and mainstem bronchi.. MEDIASTINUM: No hilar nor mediastinal adenopathy. Small nodules are noted in the thyroid gland. CARDIAC: Heart size upper normal. No pericardial effusion. ABDOMEN: There is no ascites. LIVER: There are no focal hepatic lesions nor dilatation of intrahepatic ducts. GALLBLADDER/BILIARY: Gallbladder surgically absent. CBD is not dilated. PANCREAS: No evidence of pancreatic mass nor dilatation of the pancreatic duct. SPLEEN: Spleen is not enlarged. There are no intrasplenic lesions. Splenic and portal veins are patent. ADRENALS: There are no significant adrenal masses. KIDNEYS: Tiny cortical cysts noted in both kidneys which do not require further imaging workup. No solid renal masses nor calculi and no hydronephrosis nor hydroureter.. ABDOMINAL AORTA: See above LYMPH NODES: There is no retroperitoneal nor para-aortic adenopathy. No obvious mesenteric masses. ABDOMINAL WALL: No evidence of significant anterior abdominal wall hernia. GI: There is no evidence of bowel obstruction, free air, nor abscess. PELVIS: LYMPH NODES: There is no intrapelvic nor inguinal adenopathy. GI: No evidence of appendicitis.There is diverticulosis of the sigmoid evident but no evidence of obvious acute diverticulitis. URINARY BLADDER: No calculi nor masses evident REPRODUCTIVE: Uterus unremarkable. Left adnexa unremarkable. There is a cyst in the right adnexa/right ovary measuring 2.6 x 2.5 cm consistent with ovarian cyst.. This is unchanged from CT scan of 02/27/2025. OSSEOUS: No significant osseous lesions. IMPRESSION: 1. No evidence of aortic aneurysm nor dissection, as per request.. No pericardial effusion. 2. Sigmoid diverticulosis without evidence of obvious acute diverticulitis. No appendicitis. 3. Other findings as above. Preliminary virtual Radiology report was reviewed. RADIATION DOSE DELIVERED: 707.82mGy.cm Total DLP DATA REPOSITORY: All CT scans at this facility are submitted to the National Radiology Data Registry (NRDR) Dose Index Registry (DIR) with the [employer] (ACR). RADIATION OPTIMIZATION: All CT scans at this facility use at least one of these dose optimization techniques: automated exposure control; mA and/or kV adjustment per patient size (includes targeted exams where dose is matched to clinical indication); or iterative reconstruction.
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
[2025-06-18 05:15] VITALS: BP 140/80; PULSE 80; RESP 16; O2SAT 97
[2025-06-18 05:20] LABS: Abs Immature Grans 0.01 10^3/uL (0.0-0.06); HCT 39.4 % (36.0-46.0); HGB 13.1 g/dL (11.2-15.7); Immature Grans % 0.2 %; MCH 29.2 pg (27.0-33.0); MCHC 33.2 % (32.0-36.0); MCV 88 fL (80-95); MPV 10.6 fL (8.0-11.0); Platelet Count 200 10^3/uL (130-400); RBC 4.49 10^6/uL (3.93-5.22); RDW 12.4 % (11.7-14.6); RDW-SD 39.7 fL; WBC 5.49 10^3/uL (4.4-10.8)
[2025-06-18] MEDS: Ketorolac 15 MG/ML VIAL IVP (05:22)
[2025-06-18 05:26] LABS: Glucose Negative (Negative)
[2025-06-18 05:37] LABS: ALT 44 U/L (14-59); AST 30 U/L (15-37); Albumin 4.1 g/dL (3.4-5.0); Alkaline Phosphatase 88 U/L (46-116); Anion Gap 9.1 mmol/L (3-11); BUN 13 mg/dL (7-18); Bilirubin, Total 0.5 mg/dL (0.2-1.0); CO2 27.9 mmol/L (21.0-32.0); Calcium 9.4 mg/dL (8.5-10.1); Chloride 107 mmol/L (98-107); Estimated GFR 97.71 (mL/min/1.73m2); Glucose 109 mg/dL (74-106); Lipase 31 U/L (<78); Potassium 3.4 mmol/L (3.5-5.1); Sodium 144 mmol/L (136-145); Total Protein 7.4 g/dL (6.4-8.2); Troponin I 6 ng/L (<or=51)
[2025-06-18] MEDS: Normal Saline - Diluent 50 ML VIAL IJ ×2 (05:42→06:21)
[2025-06-18] MEDS: Normal Saline Flush 10 ML SYR IVP (05:42)
[2025-06-18] MEDS: Omnipaque 350 MG/ML 100 ML BTL IJ (05:42)
[2025-06-18] MEDS: Omnipaque 350 MG/ML 50 ML BTL IJ (06:13)
--- NOTE | 2025-06-18 06:39 | DI.VRAD_ITS ---
PROCEDURE INFORMATION: Exam: CTA Chest With Contrast CTA Abdomen and Pelvis With Contrast Exam date and time: 06/18/2025 5:40 AM Age: 69 years old Clinical indication: Radiating; Abdominal pain; Left upper quadrant (luq); Prior surgery; Surgery date: 6+ months; Surgery type: Cholecystectomy. Leep. Tubal ligation; L flank pain, shooting up to chest and neck TECHNIQUE: Imaging protocol: Computed tomographic angiography of the chest with contrast. Exam focused on the arteries. Computed tomographic angiography of the abdomen and pelvis with contrast. Exam focused on the arteries. 3D rendering (Not supervised by radiologist): MIP and/or 3D reconstructed images were created by the technologist. Radiation optimization: All CT scans at this facility use at least one of these dose optimization techniques: automated exposure control; mA and/or kV adjustment per patient size (includes targeted exams where dose is matched to clinical indication); or iterative reconstruction. Contrast material: OMNPAQUE 350; Contrast volume: 145 ml; Contrast route: INTRAVENOUS (IV); COMPARISON: No relevant prior studies are available for comparison. FINDINGS: Limitations: Mild motion artifact. VASCULATURE: Pulmonary arteries: No pulmonary embolus is appreciated. Aorta: Atherosclerotic changes in the aorta and its branches. No aortic aneurysm or dissection seen. Celiac trunk and mesenteric arteries: Narrowing at the origin of the celiac axis with distal reconstitution. Renal arteries: No occlusion or significant stenosis. Right iliac arteries: No occlusion or significant stenosis. Left iliac arteries: No occlusion or significant stenosis. Thyroid: Subcentimeter hypodensities in the thyroid. CHEST: Lungs: Subsegmental atelectasis/scarring in the lungs. Pleural spaces: No pleural effusion. Heart: No pericardial effusion. ABDOMEN AND PELVIS: Liver: No focal hepatic lesion seen. Gallbladder and biliary ducts: Cholecystectomy. Pancreas: No evidence for acute pancreatitis. Spleen: No splenomegaly. Adrenal glands: No mass. Kidneys and ureters: Cortical thinning/scarring in the kidneys. Low attenuation lesions in the kidneys are too small to accurately characterize on CT. Stomach and bowel: No intestinal obstruction is evident. Colonic diverticula. Areas of apparent mural thickening in the colon commensurate with underdistention. Appendix: No evidence of appendicitis. Intraperitoneal space: No free air. No free air. Urinary bladder: No bladder wall thickening. Reproductive: 2.8 cm cystic right adnexal mass unchanged. Lymph nodes: Nonspecific mesenteric lymph nodes. Bones/joints: No acute fracture. Soft tissues: Unremarkable. IMPRESSION: 1. No aortic aneurysm or dissection seen. 2. Apparent colonic thickening, suboptimally evaluated due to underdistention but colitis cannot be excluded. Clinical correlation advised. 3. Additional findings as above. Dictated and Authenticated by: Christal Cody MD. Orderin Marlen Gonzalez MD
[2025-06-18 07:00] VITALS: BP 129/70; PULSE 56
[2025-06-18 07:00] LABS: Troponin I 5 ng/L (<or=51)
[2025-06-18 07:02] VITALS: BP 129/70; PULSE 75; RESP 16; O2SAT 99
[2025-06-18 07:14] VITALS: RESP 16; O2SAT 99
[2025-06-18] MEDS: metroNIDAZOLE 500 MG TAB, 3 TABS/BTL PO (08:01)
[2025-06-18 08:10] VITALS: BP 142/83; PULSE 66; RESP 16; TEMP 36.5; O2SAT 98
== END 2025-06-18 08:13 | disposition home or self-care (01) ==
PROVIDERS: Emergency Provider Student in an Organized Health Care Education/Training Program; PCP Nurse Practitioner Adult Health
DX: K52.89 Other specified noninfective gastroenteritis and colitis (principal)
CPT/HCPCS: 36415; 96374; 71275; 80053; 83690; 93005; 99285; 74174; 81003; 84484; 85025; 93010; 99284; J1885; J3490; Q9967

== ENCOUNTER 2025-06-27 16:23 | Outpatient (REF) | payer MEDICARE, SELFPAY ==
[2025-06-27 18:05] LABS: EPI 027-NAP1-B1 PRESUMPTIVE NEGATIVE
== END 2025-06-27 16:24 | disposition home or self-care (01) ==
LOC: LBN 16:23
PROVIDERS: PCP Nurse Practitioner Adult Health; Visit Provider Family Medicine
DX: K52.9 Noninfective gastroenteritis and colitis, unspecified (principal)
CPT/HCPCS: 87015; 87269; 87272

== ENCOUNTER → 2025-07-24 15:24 | Outpatient (BNVA) | payer MEDICARE, SELFPAY | PROVIDERS: PCP Nurse Practitioner Adult Health; Referring Provider Nurse Practitioner Adult Health; Visit Provider Podiatrist | DX: Z98.890 Other specified postprocedural states (principal); S92.514D Nondisplaced fracture of proximal phalanx of right lesser toe(s), subsequent encounter for fracture with routine healing; X58.XXXD Exposure to other specified factors, subsequent encounter; M20.21 Hallux rigidus, right foot; R25.2 Cramp and spasm; R60.0 Localized edema | CPT/HCPCS: 99213 ==

== ENCOUNTER 2025-08-01 15:52 | Outpatient (CLI) | payer MEDICARE, SELFPAY ==
[2025-08-01 16:17] LABS: Abs Immature Grans 0.02 10^3/uL (0.0-0.06); HCT 38.2 % (36.0-46.0); HGB 12.6 g/dL (11.2-15.7); Immature Grans % 0.3 %; MCH 29.3 pg (27.0-33.0); MCHC 33.0 % (32.0-36.0); MCV 89 fL (80-95); MPV 10.4 fL (8.0-11.0); Platelet Count 245 10^3/uL (130-400); RBC 4.30 10^6/uL (3.93-5.22); RDW 12.6 % (11.7-14.6); RDW-SD 41.0 fL; WBC 7.23 10^3/uL (4.4-10.8)
[2025-08-01 16:40] LABS: Amylase 56 U/L (25-115); Lipase 29 U/L (<78)
[2025-08-01 16:51] LABS: ALT 47 U/L (14-59); AST 22 U/L (15-37); Albumin 3.9 g/dL (3.4-5.0); Alkaline Phosphatase 176 U/L (46-116); Anion Gap 9.8 mmol/L (3-11); BUN 13 mg/dL (7-18); Bilirubin, Total 0.4 mg/dL (0.2-1.0); CO2 27.2 mmol/L (21.0-32.0); Calcium 9.3 mg/dL (8.5-10.1); Chloride 103 mmol/L (98-107); Estimated GFR 97.71 (mL/min/1.73m2); Glucose 89 mg/dL (74-106); Potassium 3.6 mmol/L (3.5-5.1); Sodium 140 mmol/L (136-145); TSH (W/Ref FT4) 0.81 uIU/mL (0.36-3.74); Total Protein 7.7 g/dL (6.4-8.2)
[2025-08-05 01:06] LABS: B. miyamotoi PCR Negative (Negative); Babesia divergens/MO-1 Negative (Negative); Ehrlichia muris eauclairensis Negative (Negative)
[2025-08-05 11:48] LABS: Lyme Ab w Rflx to Lyme Confirm Negative (Negative)
== END 2025-08-01 15:53 | disposition home or self-care (01) ==
LOC: LBO 15:52
PROVIDERS: PCP Nurse Practitioner Adult Health; Visit Provider Nurse Practitioner Adult Health
DX: R10.13 Epigastric pain (principal); K21.9 Gastro-esophageal reflux disease without esophagitis; R74.01 Elevation of levels of liver transaminase levels; Z87.19 Personal history of other diseases of the digestive system; K57.92 Diverticulitis of intestine, part unspecified, without perforation or abscess without bleeding; E04.1 Nontoxic single thyroid nodule
CPT/HCPCS: 36415; 80053; 82784; 83516; 83690; 87798; 82150; 84443; 85025; 86618

== ENCOUNTER → 2025-08-20 00:27 | Outpatient (CLI) | payer MEDICARE, SELFPAY ==
--- NOTE | 2025-08-20 07:15 | DI.US_ITS ---
Exam(s) US THYROID EXAM: US THYROID CLINICAL HISTORY: characterize thyroid nodules seen on CT 06/2025,E04.1. TECHNIQUE: Ultrasound thyroid performed using standard protocol. COMPARISON: CT CT THORAX ABD/PEL CTA from 06/18/2025 FINDINGS: There are multiple small bilateral benign-appearing nodules. Two of these are judged be deserving of grading. Both are in the right lobe. RIGHT THYROID LOBE: Measures 1.2 cm AP x 1.4 cm wide x 4.7 cm craniocaudal The 1st nodule is at mid level of the right lobe and measures 1.0 x 0.5 x 0.8 cm. Composition: Predominately solid-2 points Echogenicity: Hypoechoic-2 points Shape: Wider than taller-0 points Margin: Smooth- 0 points Echogenic Foci: None Total Points for this nodule: 4 ACR Ti-Rads Category: TR4 This TR 4 level nodule can be watched conservatively as it measures less than 1.5 cm. The 2nd nodule is located at the anterior aspect of the right lobe-isthmus junction. It measures 0.6 x 0.3 x 0.6 cm Composition: Solid-2 points Echogenicity: Hypoechoic- 2 points Shape: Wider than taller- 0 points Margin: Smooth-0 points Echogenic Foci: None-0 points Total points for this nodule: 4 ACR Ti-Rads Category: TR4 This TR 4 level nodule can be watch conservatively as it measures less than 1.5 cm. ISTHMUS: Normal thickness. There are no nodules in the isthmus. LEFT THYROID LOBE: Measures 1.1 cm AP x 1.3 wide x 4.1 cm craniocaudal Contains multiple small sub cm benign-appearing nodules. LYMPH NODES: There is no significant adenopathy. IMPRESSION: 1. There are 2 TR 4 level nodules in the right lobe which can be followed conservatively as they do not qualify for ultrasound-guided FNA. 2. Recommend repeat ultrasound in 1 year 3. There is no significant lymphadenopathy. DATA REPOSITORY:
== END ==
LOC: DI 00:27
PROVIDERS: PCP Nurse Practitioner Adult Health; Visit Provider Nurse Practitioner Adult Health
DX: E04.2 Nontoxic multinodular goiter (principal)
CPT/HCPCS: 76536

== ENCOUNTER → 2025-09-11 15:55 | Outpatient (CLI) | payer MEDICARE, SELFPAY ==
--- NOTE | 2025-09-11 15:45 | DI.RAD_ITS ---
Exam(s) XR RIBS RT W PA LAT CHEST EXAM: XR RIBS RT W PA LAT CHEST CLINICAL HISTORY: rt rib fracture, S22.31XA TECHNIQUE: 2D digital imaging was performed. COMPARISON: CR XR CHEST 2V PA LATERAL from 12/17/[address] THORAX ABD/PEL CTA from 06/18/2025 FINDINGS: TOTAL 6 VIEWS: RIBS 4 VIEWS-RIGHT There are no obvious acute rib fractures evident. No lytic rib lesions identified. CXR- 2 VIEWS: No lung contusion or pneumothorax. There is no pleural effusion evident. There is some scarring in the lingular segment of the left lung, more so than previous. Heart size is normal and there is no significant mediastinal widening. Incidentally noted is calcification within the medial subacromial space of the right shoulder just above the superior aspect of the osseous glenoid, this chunk of calcium measuring approximately 9 x 3 mm. IMPRESSION: 1. No obvious right rib fractures evident. Also no significant rib lesions. 2. No ipsilateral lung nor pleural abnormality evident. No pneumothorax. There is scarring or platelike atelectasis in the lingular segment of the opposite-left lung. There is a 9 x 3 mm calcification in the medial subacromial space of the right shoulder, probably consistent with calcific rotator cuff tendinitis. DATA REPOSITORY: RADIATION DOSE DELIVERED:
== END ==
LOC: DI 15:56
PROVIDERS: PCP Nurse Practitioner Adult Health; Visit Provider Nurse Practitioner Adult Health
DX: S22.31XA Fracture of one rib, right side, initial encounter for closed fracture (principal)
CPT/HCPCS: 71046; 71100